=== PATIENT | female | born 1950 | race Caucasian/White ===

== ENCOUNTER → 2016-08-21 | Outpatient (CLI) | payer MEDICARE, OTHER ==
--- NOTE | 2016-08-22 12:15 | MM ---
Reason for exam: screening (asymptomatic). Last mammogram was performed 1 year ago. History: Patient is postmenopausal and history of other cancer. Family history of breast cancer in mother at age 50. Physical Findings: A clinical breast exam by your physician is recommended on an annual basis and results should be correlated with mammographic findings. MG 3D Screening Mammo W/Cad Bilateral CC and MLO view(s) were taken. Prior study comparison: August 18, 2015, bilateral MG screening mammo w CAD. July 27, 2014, left breast MG work up mamm w CAD LT. There are scattered fibroglandular densities. Finding: There are typically benign calcifications in both breasts. There is a chronic nodularity in the left breast. No significant changes in finding since August 18, 2015 and July 27, 2014. ASSESSMENT: Benign, BI-RAD 2 RECOMMENDATION: Routine screening mammogram of both breasts in 1 year.
== END | disposition home or self-care (01) ==
LOC: RADMAMWWP 11:07
PROVIDERS: ATTEND Family Medicine
DX: Z12.31 Encounter for screening mammogram for malignant neoplasm of breast (principal)
CPT/HCPCS: 77063; G0202

== ENCOUNTER 2016-09-18 10:50 | Day surgery (SDC) | payer MEDICARE, OTHER ==
[2016-09-12 11:41] VITALS: BMI 29.8
[~2016-09-18 10:50] MED LIST: LACTATED RINGERS 1,000 ML IV SCH
[2016-09-18] MEDS: PHENYLEPHRINE 10% OPHTH DROPS 5 ML BTL OP ONE ×3 (11:02→11:15)
[2016-09-18] MEDS: FLURBIPROFEN 0.03% OPHTH DROPS 2.5 ML BTL OP ONE ×3 (11:04→11:17)
[2016-09-18] MEDS: CYCLOPENTOLATE 1% OPHTH SOLN 2 ML BTL OP ONE ×3 (11:06→11:19)
[2016-09-18 11:14] VITALS: RESP 16; TEMP 97.4
[2016-09-18] MEDS ORDERED: BALANCED SALT IRRIG SOLN COMB2 15 ML IRRIG.SOLN INTRAOCULA ONE (11:42)
[2016-09-18] MEDS ORDERED: MIDAZOLAM 2 MG/2 ML VIAL ONE (11:42)
[2016-09-18] MEDS ORDERED: HYALURONATE SODIUM INTRAOCULAR 1 EACH SYRINGE (10MG/ML) INTRAOCULA ONE (11:42)
[2016-09-18] MEDS ORDERED: PROPOFOL 10 MG/ML 20 ML VIAL IV ONE (11:42)
[2016-09-18] MEDS ORDERED: LIDOCAINE 1% INJ 10MG/ML (20 ML MDV) ONE (11:42)
[2016-09-18] MEDS ORDERED: EPINEPHrine (PF) 0.5 ML in BALANCED SALT IRRIG SOLN COMB2 500 ML IRRIGATION ONE (11:44)
[2016-09-18] MEDS ORDERED: TETRACAINE 0.5% OPHTH (PF) DROPS 4 ML BTL LEFT EYE ONE (11:54)
--- NOTE | 2016-09-18 12:06 | P.OP ---
Date of Procedure: 09/18/16 Procedure(s) Performed: PREOPERATIVE DIAGNOSIS: Cataract, left eye. POSTOPERATIVE DIAGNOSIS: Cataract, left eye. OPERATION: Phacoemulsification cataract, left eye. DESCRIPTION OF PROCEDURE: The patient was taken to the preoperative holding area. Intravenous Propofol was given so as to bring about adequate sedation. The following mixture was given for local anesthesia: 5 mL of 2% lidocaine, 5 mL of 0.75% Marcaine, and 1 mL of Wydase. Approximately 4 mL was injected in the retrobulbar space of the surgical eye. Additional 1 mL was then directed to the temporal area of the surgical eye. This was performed to allow adequate neurological block of the facial muscles. The patient was revived and then taken into the operative room. The patient was prepped and draped in the usual sterile manner for the operative eye. A lid speculum was put into position. The conjunctiva was resected back from the limbus in the 12 o'clock position. Bleeding was controlled with electrocautery. A #69 blade was then used and a half-thickness scleral incision approximately 1-mm posterior to the limbus was made on bare sclera. This was shelved in the clear cornea using a crescent knife. Next a 15-degree blade was used to make a stab incision at the 3 o' clock position at the corneolimbal interface. Keratome blade was then used and the superior wound was extended into the anterior chamber. Viscoelastic was injected into the anterior chamber and to maintain its form. Next, a cystotome was used and a continuous anterior capsulotomy was made without difficulty. Hydrodissection using a blunt cannula and BSS was performed. Phaco probe was then employed and a groove extending from 12 to 6 o'clock in the lens was created. A Nadir wand was used through the stab incision so as to perform a divide and conquer technique. Next an irrigation aspiration probe was utilized and any residual cortex was removed from the eye. Again, viscoelastic was injected into the anterior chamber. An MIKE Symfony posterior chamber lens implant was placed in the cartridge and injected into the anterior chamber without difficulty. The Sinskey hook was utilized to spin the lens into position and this was again performed without any difficulty. The irrigation and aspiration probe was again employed and any residual viscoelastic was removed from the eye. Then BSS was injected into the limbal stab incision and the anterior chamber re-inflated. The conjunctiva was reapproximated using electrocautery. One drop of 0.25% Timoptic was placed over the corneal along with TobraDex ophthalmic ointment. Two sterile patches and a Calabrese eye shield were taped into position. The patient was transported to the recovery room in stable condition. Pathology: none sent Condition: stable Disposition: same day
[2016-09-18 12:26] VITALS: BP 133/70; PULSE 62
[2016-09-18] MEDS ORDERED: GENTAMICIN/PREDNISOL AC OPHTH OINT 3.5GM OPHTHALMIC ONE (23:00)
[2016-09-18] MEDS ORDERED: BUPIVACAINE (PF) 0.75% 5 ML, LIDOCAINE 4% (PF) 5 ML, HYALURONIDASE, HUMAN RECOMB 150 UNIT MISCELLANE ONE ×3 (23:00)
[2016-09-18] MEDS ORDERED: TIMOLOL 0.5% OPHTH SOLN (PF) 0.2 ML DROPERETTE OP ONE (23:00)
== END 2016-09-18 13:01 | disposition home or self-care (01) ==
LOC: OR 10:50
PROVIDERS: ATTEND Ophthalmology
DX: H26.9 Unspecified cataract (principal); I10 Essential (primary) hypertension; E07.9 Disorder of thyroid, unspecified; E78.9 Disorder of lipoprotein metabolism, unspecified; R42 Dizziness and giddiness; Z79.899 Other long term (current) drug therapy
CPT/HCPCS: 66984; V2632; V2788; J2001 ×2; J2250; J3470; J0171; J2704; 99152; 99153

== ENCOUNTER 2016-11-06 10:42 | Day surgery (SDC) | payer MEDICARE, OTHER ==
[2016-11-01 16:02] VITALS: BMI 29.8
[~2016-11-06 10:42] MED LIST changes: +LIDOCAINE 1% 20 ML VIAL (10MG/ML) FOR IV START INTRADERMA PRN
[2016-11-06] MEDS: PHENYLEPHRINE 10% OPHTH DROPS 5 ML BTL OP ONE ×3 (11:37→12:03)
[2016-11-06] MEDS: CYCLOPENTOLATE 1% OPHTH SOLN 2 ML BTL OP ONE ×3 (11:40→12:06)
[2016-11-06] MEDS: FLURBIPROFEN 0.03% OPHTH DROPS 2.5 ML BTL OP ONE ×3 (11:45→12:10)
[2016-11-06 11:54] VITALS: RESP 16; TEMP 97.4
[2016-11-06] MEDS ORDERED: PROPOFOL 10 MG/ML 20 ML VIAL IV ONE (12:45)
[2016-11-06] MEDS ORDERED: LIDOCAINE 1% INJ 10MG/ML (20 ML MDV) ONE (12:45)
[2016-11-06] MEDS ORDERED: EPINEPHrine (PF) 0.5 ML in BALANCED SALT IRRIG SOLN COMB2 500 ML IRRIGATION ONE (12:51)
[2016-11-06] MEDS ORDERED: BALANCED SALT IRRIG SOLN COMB2 15 ML IRRIG.SOLN IRRIGATION ONE (12:53)
[2016-11-06] MEDS ORDERED: HYALURONATE SODIUM INTRAOCULAR 1 EACH SYRINGE (10MG/ML) INTRAOCULA ONE (12:54)
--- NOTE | 2016-11-06 13:18 | P.OP ---
Date of Procedure: 11/06/16 Procedure(s) Performed: PREOPERATIVE DIAGNOSIS: Cataract, right eye. POSTOPERATIVE DIAGNOSIS: Cataract, right eye. OPERATION: Phacoemulsification cataract, right eye. DESCRIPTION OF PROCEDURE: The patient was taken to the preoperative holding area. Intravenous Propofol was given so as to bring about adequate sedation. The following mixture was given for local anesthesia: 5 mL of 2% lidocaine, 5 mL of 0.75% Marcaine, and 1 mL of Wydase. Approximately 4 mL was injected in the retrobulbar space of the surgical eye. Additional 1 mL was then directed to the temporal area of the surgical eye. This was performed to allow adequate neurological block of the facial muscles. The patient was revived and then taken into the operative room. The patient was prepped and draped in the usual sterile manner for the operative eye. A lid speculum was put into position. A #69 blade was then used and a half-thickness corneal incision was made at the 95 degree meridian. This was shelved in the clear cornea using a crescent knife. Next a 15-degree blade was used to make a stab incision at the 3 o' clock position at the corneolimbal interface. Keratome blade was then used and the superior wound was extended into the anterior chamber. Viscoelastic was injected into the anterior chamber and to maintain its form. Next, a cystotome was used and a continuous anterior capsulotomy was made without difficulty. Hydrodissection using a blunt cannula and BSS was performed. Phaco probe was then employed and a groove extending from 12 to 6 o'clock in the lens was created. A Nadir wand was used through the stab incision so as to perform a divide and conquer technique. Next an irrigation aspiration probe was utilized and any residual cortex was removed from the eye. Again, viscoelastic was injected into the anterior chamber. An MIKE Symfony posterior chamber lens implant was placed in the cartridge and injected into the anterior chamber without difficulty. The Sinskey hook was utilized to spin the lens into position and this was again performed without any difficulty. The irrigation and aspiration probe was again employed and any residual viscoelastic was removed from the eye. Then BSS was injected into the limbal stab incision and the anterior chamber re-inflated. The conjunctiva was reapproximated using electrocautery. One drop of 0.25% Timoptic was placed over the corneal along with TobraDex ophthalmic ointment. Two sterile patches and a Calabrese eye shield were taped into position. The patient was transported to the recovery room in stable condition. Pathology: none sent Condition: stable Disposition: same day
[2016-11-06 13:34] VITALS: BP 143/67; PULSE 68
[2016-11-06] MEDS ORDERED: TIMOLOL 0.5% OPHTH SOLN (PF) 0.2 ML DROPERETTE OP ONE (23:00)
[2016-11-06] MEDS ORDERED: BUPIVACAINE (PF) 0.75% 5 ML, LIDOCAINE 4% (PF) 5 ML, HYALURONIDASE, HUMAN RECOMB 150 UNIT MISCELLANE ONE ×3 (23:00)
[2016-11-06] MEDS ORDERED: GENTAMICIN/PREDNISOL AC OPHTH OINT 3.5GM OPHTHALMIC ONE (23:00)
== END 2016-11-06 14:05 | disposition home or self-care (01) ==
LOC: OR 10:42
PROVIDERS: ATTEND Ophthalmology
DX: H26.9 Unspecified cataract (principal); H04.129 Dry eye syndrome of unspecified lacrimal gland; I10 Essential (primary) hypertension; E78.5 Hyperlipidemia, unspecified; E07.9 Disorder of thyroid, unspecified; Z79.899 Other long term (current) drug therapy
CPT/HCPCS: 66984; V2632; V2788; J2001 ×2; J3470; J0171; J2704

== ENCOUNTER 2016-12-11 07:42 | Day surgery (SDC) | payer MEDICARE, OTHER ==
[2016-12-06 09:56] VITALS: BMI 29.8
[2016-12-11 08:48] VITALS: RESP 16; TEMP 97.5
[2016-12-11] MEDS ORDERED: LIDOCAINE 1% 20 ML VIAL (10MG/ML) FOR IV START INTRADERMA ONE (08:55)
[2016-12-11] MEDS ORDERED: PROPOFOL 10 MG/ML 20 ML VIAL IV ONE (09:48)
[2016-12-11] MEDS ORDERED: LIDOCAINE 1% INJ 10MG/ML (20 ML MDV) ONE (09:48)
--- NOTE | 2016-12-11 10:32 | P.PCN ---
Date of Procedure: 12/11/16 Procedure(s) Performed: Procedure: Total colonoscopy. Preoperative diagnosis: Screening for neoplasia, patient has strong family history of colon cancer. Postoperative diagnosis: Exam within normal limits. Preparation: HalfLytely prep. Sedation: Was provided by anesthesia. Brief clinical history: The patient is a 66-year-old female who is scheduled for this evaluation because of family history of colon cancer in her mother and paternal grandfather. She has no abdominal complaints, bleeding or anemia. Procedure: With the patient on her left lateral decubitus position and after informed consent and adequate sedation, the perianal area was inspected and it did not show any fissures or fistulas. There were no masses felt on digital rectal examination. The Olympus CFQ 160L video colonoscope was then inserted in the rectum in the usual fashion and advanced to the cecum. The preparation was good. The mucosa appeared healthy. No polyps or tumors were seen or any obvious diverticular disease or other pathology. I retroflexed endoscope in the rectum before the endoscope was withdrawn. The patient tolerated the procedure well. Plan: The patient was reassured. With her family history, I am recommending repeat exam in 5 years. She will follow-up with you as planned.
[2016-12-11 10:40] VITALS: BP 112/66; PULSE 56
== END 2016-12-11 10:59 | disposition home or self-care (01) ==
LOC: ORWHC2ENDO 07:42
DX: Z12.11 Encounter for screening for malignant neoplasm of colon (principal); Z80.0 Family history of malignant neoplasm of digestive organs; I10 Essential (primary) hypertension; E78.5 Hyperlipidemia, unspecified; E07.9 Disorder of thyroid, unspecified; Z79.2 Long term (current) use of antibiotics; Z79.1 Long term (current) use of non-steroidal anti-inflammatories (NSAID); Z79.899 Other long term (current) drug therapy
CPT/HCPCS: J2001; J2704; G0105

== ENCOUNTER → 2017-01-19 | Outpatient (CLI) | payer MEDICARE, OTHER ==
--- NOTE | 2017-01-19 11:01 | MR ---
EXAMINATION TYPE: MR lumbar spine wo con DATE OF EXAM: 01/19/2017 10:44 AM COMPARISON: April 02, 2014 HISTORY: low back pain for many years with prev surgery...ordered Without contrast Multiplanar, MultiSpin echo imaging of the lumbar spine was performed. L1-L2: Moderate to severe disc desiccation. Grade 1 anterolisthesis L1 and L2 of 4.2 mm. Posterior di sc bulge with constriction of the thecal sac borderline to mild central stenosis. Bilateral foraminal encroachment seen. L2-L3: Moderate to severe disc desiccation. Posterior disc bulge with effacement of the ventral theca l sac and bilateral lateral recess stenosis. Bilateral foraminal encroachment. No definite central st enosis. L3-L4: Changes of fusion. Pedicular screws are in place. Alignment is near-anatomic. No evidence for recurrent or residual disc herniation. Right hemilaminectomy changes. Mild narrowing bilateral forami na. L4-L5: Changes of fusion. Pedicular screws are in place. Alignment is near-anatomic. No evidence for recurrent or residual disc herniation. Right hemilaminectomy changes. Mild narrowing bilateral forami na. L5-S1: Changes of fusion. Pedicular screws are in place. Alignment is near-anatomic. Moderate disc de siccation with posterior disc bulge. No herniation or central stenosis. Right hemilaminectomy changes . Mild narrowing bilateral foramina. Lumbar segments are intact. No paraspinal masses are identified. Conus medullaris has a normal appe arance. IMPRESSION: 1. Stable postoperative changes. 2. Grade 1 anterolisthesis with posterior disc bulging at L1-2 and borderline central stenosis. Bilat eral foraminal encroachment. 3. Degenerative disc disease with bilateral lateral recess stenosis at L2-3. See above
== END | disposition home or self-care (01) ==
LOC: RADMRIMAIN 10:08
PROVIDERS: ATTEND Psychiatry & Neurology Pain Medicine
DX: M48.06 Spinal stenosis, lumbar region (principal); M51.26 Other intervertebral disc displacement, lumbar region; M43.16 Spondylolisthesis, lumbar region; M51.36 Other intervertebral disc degeneration, lumbar region; Z98.890 Other specified postprocedural states
CPT/HCPCS: 72148

== ENCOUNTER → 2017-09-18 | Outpatient (CLI) | payer MEDICARE, OTHER ==
--- NOTE | 2017-09-19 10:30 | MM ---
Reason for exam: screening (asymptomatic). Last mammogram was performed 1 year and 1 month ago. History: Patient is postmenopausal and history of other cancer. Family history of breast cancer in mother at age 50. Physical Findings: A clinical breast exam by your physician is recommended on an annual basis and results should be correlated with mammographic findings. MG 3D Screening Mammo W/Cad Bilateral CC and MLO view(s) were taken. Prior study comparison: August 21, 2016, bilateral MG 3d screening mammo w/cad. August 18, 2015, bilateral MG screening mammo w CAD. There are scattered fibroglandular densities. No suspicious abnormality. No significant changes when compared with prior studies. ASSESSMENT: Negative, BI-RAD 1 RECOMMENDATION: Routine screening mammogram of both breasts in 1 year.
== END | disposition home or self-care (01) ==
LOC: RADMAMWWP 15:33
PROVIDERS: ATTEND Family Medicine
DX: Z12.31 Encounter for screening mammogram for malignant neoplasm of breast (principal)
CPT/HCPCS: 77063; 77067

== ENCOUNTER 2017-12-10 14:12 | Observation (INO) | payer MEDICARE, OTHER ==
--- NOTE | 2017-12-10 14:26 | ED ---
General Adult HPI - General Chief complaint: Chest Pain Stated complaint: SOB Time Seen by Provider: 12/10/17 14:20 Source: patient, RN notes reviewed, old records reviewed Mode of arrival: wheelchair Limitations: no limitations - History of Present Illness Initial comments: This is a 67-year-old female the ER for evaluation of chest pain, chest pain shortness of breath. Patient is calm. Medical history CVA TIA high blood pressure high cholesterol and CVA. No recent travel history no prior history of blood clots. No fevers cough or congestion. No trauma. - Related Data Home Medications Medication Instructions Recorded Confirmed Levothyroxine Sodium [Synthroid] 50 mcg PO DAILY 03/06/14 12/10/17 Lisinopril-Hctz 20-12.5 mg 1 tab PO DAILY 03/06/14 12/10/17 [Zestoretic 20-12.5] Cephalexin [Keflex] 500 mg PO BID 09/12/16 12/10/17 Allergies Allergy/AdvReac Type Severity Reaction Status Date / Time No Known Allergies Allergy Verified 12/10/17 14:42 Review of Systems ROS Statement: Those systems with pertinent positive or pertinent negative responses have been documented in the HPI. ROS Other: All systems not noted in ROS Statement are negative. Past Medical History Past Medical History: Cancer, CVA/TIA, Hyperlipidemia, Hypertension, Osteoarthritis (OA), Seizure Disorder, Thyroid Disorder Additional Past Medical History / Comment(s): seizure 2 yrs ago X1 AFTER FALL, STATES CLOSED HEAD INJURY,RANJIT'S, STATES WAS TOLD HAD TIA FROM TESTING, BUT PATIENT UNAWARE WHEN, hx skin cancer History of Any Multi-Drug Resistant Organisms: None Reported Past Surgical History: Back Surgery, Cholecystectomy, Joint Replacement, Orthopedic Surgery, Tonsillectomy Additional Past Surgical History / Comment(s): back surgery 2014, abdominoplasty , josseline carpal tunnel, rt shoulder and left knee surgeries, JOSSELINE CATARACT rt knee Past Anesthesia/Blood Transfusion Reactions: No Reported Reaction Past Psychological History: No Psychological Hx Reported Smoking Status: Never smoker Past Alcohol Use History: None Reported Past Drug Use History: None Reported - Past Family History Mother Family Medical History: CVA/TIA General Exam Limitations: no limitations General appearance: alert, in no apparent distress Head exam: Present: atraumatic, normocephalic, normal inspection Eye exam: Present: normal appearance, PERRL, EOMI. Absent: scleral icterus, conjunctival injection, periorbital swelling ENT exam: Present: normal exam, mucous membranes moist Neck exam: Present: normal inspection. Absent: tenderness, meningismus, lymphadenopathy Respiratory exam: Present: normal lung sounds bilaterally. Absent: respiratory distress, wheezes, rales, rhonchi, stridor Cardiovascular Exam: Present: regular rate, normal rhythm, normal heart sounds. Absent: systolic murmur, diastolic murmur, rubs, gallop, clicks GI/Abdominal exam: Present: soft, normal bowel sounds. Absent: distended, tenderness, guarding, rebound, rigid Extremities exam: Present: normal inspection, full ROM, normal capillary refill. Absent: tenderness, pedal edema, joint swelling, calf tenderness Back exam: Present: normal inspection Neurological exam: Present: alert, oriented X3, CN II-XII intact Psychiatric exam: Present: normal affect, normal mood Skin exam: Present: warm, dry, intact, normal color. Absent: rash Course Vital Signs 12/10/17 14:16 Temperature 98.3 F Pulse Rate 66 Respiratory 20 Rate Blood Pressure 132/60 O2 Sat by Pulse 99 Oximetry - Reevaluation(s) Reevaluation #1: 12/10/17 16:34 Patient has pain control currently EKG Findings - EKG Comments: EKG Findings:: EKG shows sinus rhythm rate of 72, OH 156, QRS 70, QTc 422 Medical Decision Making - Medical Decision Making 67 female the ER for evaluation of chest pain continued chest pain currently. Patient has significant shortness of breath recent EKG changes. Patient will be admitted for cardiac observation - Lab Data Result diagrams: 12/10/17 14:40 12/10/17 14:40 Lab Results 12/10/17 12/10/17 12/10/17 Range/Units 14:40 14:40 14:40 WBC 8.5 (3.8-10.6) k/uL RBC 4.45 (3.80-5.40) m/uL Hgb 11.8 (11.4-16.0) gm/dL Hct 35.5 (34.0-46.0) % MCV 79.9 L (80.0-100.0) fL MCH 26.4 (25.0-35.0) pg MCHC 33.1 (31.0-37.0) g/dL RDW 13.7 (11.5-15.5) % Plt Count 280 (150-450) k/uL Neutrophils % 71 % Lymphocytes % 19 % Monocytes % 6 % Eosinophils % 1 % Basophils % 0 % Neutrophils # 6.1 (1.3-7.7) k/uL Lymphocytes # 1.7 (1.0-4.8) k/uL Monocytes # 0.5 (0-1.0) k/uL Eosinophils # 0.1 (0-0.7) k/uL Basophils # 0.0 (0-0.2) k/uL PT (9.0-12.0) sec INR (<1.2) APTT (22.0-30.0) sec D-Dimer (<0.60) mg/L FEU Sodium 143 (137-145) mmol/L Potassium 4.9 (3.5-5.1) mmol/L Chloride 103 (98-107) mmol/L Carbon Dioxide 24 (22-30) mmol/L Anion Gap 16 mmol/L BUN 25 H (7-17) mg/dL Creatinine 0.70 (0.52-1.04) mg/dL Est GFR (CKD-EPI)AfAm >90 (>60 ml/min/1.73 sqM) Est GFR (CKD-EPI)NonAf 90 (>60 ml/min/1.73 sqM) Glucose 99 (74-99) mg/dL Calcium 10.3 H (8.4-10.2) mg/dL Magnesium 1.8 (1.6-2.3) mg/dL Total Bilirubin 0.6 (0.2-1.3) mg/dL AST 38 H (14-36) U/L ALT 27 (9-52) U/L Alkaline Phosphatase 87 (38-126) U/L Total Creatine Kinase 84 (30-135) U/L CK-MB (CK-2) 1.0 (0.0-2.4) ng/mL CK-MB (CK-2) Rel Index 1.2 Troponin I <0.012 (0.000-0.034) ng/mL Total Protein 7.8 (6.3-8.2) g/dL Albumin 4.8 (3.5-5.0) g/dL Lipase 130 (23-300) U/L 04/24/18 Range/Units 14:40 WBC (3.8-10.6) k/uL RBC (3.80-5.40) m/uL Hgb (11.4-16.0) gm/dL Hct (34.0-46.0) % MCV (80.0-100.0) fL MCH (25.0-35.0) pg MCHC (31.0-37.0) g/dL RDW (11.5-15.5) % Plt Count (150-450) k/uL Neutrophils % % Lymphocytes % % Monocytes % % Eosinophils % % Basophils % % Neutrophils # (1.3-7.7) k/uL Lymphocytes # (1.0-4.8) k/uL Monocytes # (0-1.0) k/uL Eosinophils # (0-0.7) k/uL Basophils # (0-0.2) k/uL PT 10.1 (9.0-12.0) sec INR 1.0 (<1.2) APTT 24.5 (22.0-30.0) sec D-Dimer 5.19 H (<0.60) mg/L FEU Sodium (137-145) mmol/L Potassium (3.5-5.1) mmol/L Chloride (98-107) mmol/L Carbon Dioxide (22-30) mmol/L Anion Gap mmol/L BUN (7-17) mg/dL Creatinine (0.52-1.04) mg/dL Est GFR (CKD-EPI)AfAm (>60 ml/min/1.73 sqM) Est GFR (CKD-EPI)NonAf (>60 ml/min/1.73 sqM) Glucose (74-99) mg/dL Calcium (8.4-10.2) mg/dL Magnesium (1.6-2.3) mg/dL Total Bilirubin (0.2-1.3) mg/dL AST (14-36) U/L ALT (9-52) U/L Alkaline Phosphatase (38-126) U/L Total Creatine Kinase (30-135) U/L CK-MB (CK-2) (0.0-2.4) ng/mL CK-MB (CK-2) Rel Index Troponin I (0.000-0.034) ng/mL Total Protein (6.3-8.2) g/dL Albumin (3.5-5.0) g/dL Lipase (23-300) U/L - Radiology Data Radiology results: report reviewed (Chest x-rays negative for acute disease, CT is pending), image reviewed Critical Care Time Critical Care Time: Yes Total Critical Care Time: 31 Disposition Clinical Impression: Unstable angina pectoris, Chest pain Disposition: ADMITTED IP TO THIS [facility] Condition: Fair Is patient prescribed a controlled substance at d/c from ED?: No Referrals: Allan Coffey DO [Primary Care Provider] - 1-2 days
--- NOTE | 2017-12-10 15:05 | XR ---
EXAMINATION TYPE: XR chest 2V DATE OF EXAM: 12/10/2017 COMPARISON: 10/26/2015 HISTORY: Shortness of breath TECHNIQUE: Frontal and lateral views of the chest are obtained. FINDINGS: Scattered senescent parenchymal changes noted. No evidence for infiltrate. No evidence for atelectasis. Heart size is stable. Mediastinal structures are stable and grossly unremarkable. No evidence for hilar prominence. Degenerative changes dorsal spine. IMPRESSION: 1. No evidence for acute pulmonary disease.
[2017-12-10 15:08] LABS: Basophils % (A) 0 %; Eosinophils # (A) 0.1 k/uL (0-0.7); Eosinophils % (A) 1 %; HCT 35.5 % (34.0-46.0); HGB 11.8 gm/dL (11.4-16.0); Lymphocytes # (A) 1.7 k/uL (1.0-4.8); Lymphocytes % (A) 19 %; MCH 26.4 pg (25.0-35.0); MCHC 33.1 g/dL (31.0-37.0); MCV 79.9 fL (80.0-100.0); Mean Platelet Volume 7.4; Monocytes # (A) 0.5 k/uL (0-1.0); Monocytes % (A) 6 %; Neutrophils # (A) 6.1 k/uL (1.3-7.7); Neutrophils % (A) 71 %; Platelet Count 280 k/uL (150-450); RBC 4.45 m/uL (3.80-5.40); RDW 13.7 % (11.5-15.5); WBC 8.5 k/uL (3.8-10.6)
[2017-12-10 15:23] LABS: Anion Gap 16 mmol/L; Calcium 10.3 mg/dL (8.4-10.2); Carbon Dioxide 24 mmol/L (22-30); Chloride 103 mmol/L (98-107); Glucose 99 mg/dL (74-99); Lipase 130 U/L (23-300); Sodium 143 mmol/L (137-145); Total Bilirubin 0.6 mg/dL (0.2-1.3)
[2017-12-10 15:28] LABS: ALT 27 U/L (9-52); AST 38 U/L (14-36); Albumin 4.8 g/dL (3.5-5.0); Blood Urea Nitrogen 25 mg/dL (7-17); Magnesium 1.8 mg/dL (1.6-2.3); Potassium 4.9 mmol/L (3.5-5.1); Total Protein 7.8 g/dL (6.3-8.2)
[2017-12-10 15:29] LABS: Alkaline Phosphatase 87 U/L (38-126); Creatine Kinase 84 U/L (30-135)
[2017-12-10 15:43] LABS: Troponin I <0.012 ng/mL (0.000-0.034)
[2017-12-10 16:22] LABS: Partial Thromboplastin Time 24.5 sec (22.0-30.0); Prothrombin Time 10.1 sec (9.0-12.0)
[2017-12-10] MEDS ORDERED: ASPIRIN 81 MG PO STA (16:22)
[2017-12-10] MEDS ORDERED: NITROGLYCERIN SL TABS 0.4 MG TAB SUBLINGUAL PRN (16:22)
[2017-12-10 16:23] LABS: D-Dimer 5.19 mg/L FEU (<0.60)
[2017-12-10] MEDS ORDERED: RX INFO: IV CONTRAST WAS GIVEN 1 EACH MISC MISCELLANE PRN (16:24)
--- NOTE | 2017-12-10 17:25 | CT ---
EXAMINATION TYPE: CT angio chest DATE OF EXAM: 12/10/2017 5:13 PM COMPARISON: NONE HISTORY: Shortness of breath and chest heaviness x [address] DLP: 253.4 mGycm Automated exposure control for dose reduction was used. CONTRAST: CTA scan of the thorax is performed with IV Contrast, patient injected with 100 mL of Isovue 370, pul monary embolism protocol. There are 3-D post processed images.. FINDINGS: The lungs are clear of infiltrate. There is no pleural effusion. There is no mediastinal adenopathy. Thoracic aorta shows no sign of aneurysm or dissection. There is normal contrast opacification of the pulmonary arteries. I see no filling defects. There are no hilar masses. There is a small pericardial effusion. There is mild spurring in the thoracic spine . There is no focal bony destructive process. There is no compression fracture. IMPRESSION: NO EVIDENCE OF PULMONARY EMBOLISM. LUNGS ARE CLEAR. SMALL PERICARDIAL EFFUSION.
[2017-12-10] MEDS ORDERED: HYDROcodone/APAP 10-325MG 1 EACH TAB PO ONE (18:07)
[2017-12-10] MEDS: HYDROcodone/APAP 10-325MG 1 EACH TAB PO SCH (18:10)
[2017-12-10] MEDS ORDERED: MAGNESIUM HYDROXIDE 2,400 MG/10 ML CUP PO PRN (19:52)
[2017-12-10] MEDS ORDERED: LACTULOSE 20 GM/30 ML CUP PO PRN (19:52)
[2017-12-10] MEDS ORDERED: CALCIUM CARBONATE 500 MG CHEWABLE PO PRN (19:52)
[2017-12-10] MEDS ORDERED: NALOXONE 0.4 MG/ML 1 ML VIAL IV PRN (19:52)
[2017-12-10] MEDS ORDERED: ACETAMINOPHEN TAB 325 MG TAB PO PRN (19:52)
[2017-12-10] MEDS ORDERED: LORazepam 0.5 MG TAB PO PRN (19:52)
[2017-12-10] MEDS ORDERED: ONDANSETRON 4 MG/2 ML VIAL IVP PRN (19:52)
[2017-12-10] MEDS ORDERED: MELATONIN 3 MG TABLET PO PRN (19:52)
[2017-12-10 21:22] LABS: Creatine Kinase 82 U/L (30-135)
[2017-12-10 21:34] LABS: Creatine Kinase MB 0.9 ng/mL (0.0-2.4); Troponin I <0.012 ng/mL (0.000-0.034)
[2017-12-10] MEDS: NITROGLYCERIN OINT 1 INCH/GM PACKET TOPICAL SCH (22:00)
--- NOTE | 2017-12-10 22:02 | HP ---
HISTORY AND PHYSICAL DATE OF OF ADMISSION AND DATE OF SERVICE: 12/10/2017 PRESENTING COMPLAINT: Chest pressure. HISTORY OF PRESENTING COMPLAINT: A very pleasant 67-year-old patient of Dr. Coffey. Chronic stable medical conditions include hypertension, hyperlipidemia, osteoarthritis, Bren's. The patient is limited in exercise tolerance because the right knee has been infected twice and is due again for replacement. For about 1 week, patient is finding it difficult to catch her breath, also noticed a chest pressure going across the chest, even at rest. The patient is noticed to become short of breath. Breaks out in a sweat at night and feels tired and run down. Hence, she decided to come in. The patient had a stress test several years ago that was negative. The patient admitted with diagnosis of unstable angina. Initial troponin was negative. REVIEW OF SYSTEMS: CONSTITUTIONAL: Tired. HEENT: None. RESPIRATORY: None. CARDIOVASCULAR: As above. GASTROINTESTINAL: None. GENITOURINARY: None. MUSCULOSKELETAL: Arthritic pain in joints, especially the right knee. DERMATOLOGICAL: None. HEMATOLOGIC: Lymphatics none. PSYCHIATRY: None. NEUROLOGICAL: None. PAST MEDICAL HISTORY: Hyperlipidemia, hypertension, osteoarthritis, seizure disorder, falling, closed head injury on ice, Bren's, skin cancer. The patient's cholesterol medication discontinued 1 week ago. PAST SURGICAL HISTORY: Back surgery x2, cholecystectomy, abdominoplasty, bilateral carpal tunnel, right shoulder rotator cuff, left knee arthroscopy, right knee replacement. SOCIAL HISTORY: The patient smoked for 10 years, stopped about 40 years ago. Alcohol occasionally. . FAMILY HISTORY: Breast and colon cancer and stroke. HOME MEDICATIONS: 1. Zestoretic 20/12.5 one tablet p.o. daily. 2. Synthroid 50 mcg p.o. daily. 3. Keflex 500 mg b.i.d. ALLERGIES: None. EXAMINATION: Temperature 98.3 pulse 53, respirations 20, blood pressure 132/60, pulse ox 99% on room air. GENERAL APPEARANCE: Well built, BMI 31.8. Sitting up, awake, comfortable. EYES: Pupils equal. Conjunctivae normal. HEENT: External appearance of nose and ears normal. Oral cavity normal. NECK: JVD not raised. Mass not palpable. RESPIRATORY: Effort normal. Lungs are clear. CARDIOVASCULAR: First and second sounds normal. No edema. ABDOMEN: Soft, nontender. Liver and spleen not palpable. LYMPHATIC: No lymph node palpable in neck or axillae. PSYCHIATRY: Alert and oriented x3. Mood and affect normal. NEUROLOGICAL: Pupils equal. Cranial nerves grossly intact. Power and sensation grossly intact. Limited range of motion of the right knee. INVESTIGATIONS: White count 8.5, hemoglobin 11.8. Potassium 4.9. EKG: Normal sinus rhythm. ASSESSMENT: 1. Cardiac-sounding presentation/unstable angina. Patient has been having chest pressure, shortness of breath, episodes of perspiration present at rest. The patient would probably therapeutically benefit from a cardiac catheterization. 2. Essential hypertension. 3. Hyperlipidemia. 4. Primary osteoarthritis multiple joints. 5. History of seizures from closed head injury. 6. Hypothyroidism. 7. Obesity; BMI 31.8. PLAN: Patient is on aspirin, Lipitor, will add a nitro paste. Will keep the patient n.p.o. after midnight for possible cardiac catheterization. Will let Cardiology make the final determination. MMODL / IJN: [id number] /
[2017-12-11] MEDS: NITROGLYCERIN OINT 1 INCH/GM PACKET TOPICAL SCH ×3 (00:19→18:30)
[2017-12-11] MEDS: HYDROcodone/APAP 10-325MG 1 EACH TAB PO SCH ×2 (02:08→18:29)
[2017-12-11 02:33] LABS: Cholesterol 164 mg/dL (<200); HDL Cholesterol 53 mg/dL (40-60); LDL Cholesterol,Calculated 82 mg/dL (0-99); Triglycerides 147 mg/dL (<150)
[2017-12-11 02:54] LABS: Creatine Kinase 63 U/L (30-135)
[2017-12-11 03:08] LABS: Creatine Kinase MB 0.6 ng/mL (0.0-2.4); Troponin I <0.012 ng/mL (0.000-0.034)
[2017-12-11] MEDS ORDERED: LEVOTHYROXINE 50 MCG TAB PO SCH (06:30)
[2017-12-11] MEDS ORDERED: ASPIRIN 325 MG TAB PO SCH (09:00)
[2017-12-11] MEDS ORDERED: LISINOPRIL-HCTZ 20-12.5 MG 1 EACH TAB PO SCH (09:00)
[2017-12-11] MEDS ORDERED: ATORVASTATIN 80 MG TAB PO SCH (09:00)
[2017-12-11] MEDS ORDERED: DOBUTamine DRIP for NUC MED 250 MG in DEXTROSE/WATER 1 250ML.BAG IV ONE (09:53)
--- NOTE | 2017-12-11 10:02 | P.CRDCN ---
History of Present Illness Consult date: 12/11/17 History of present illness: Mrs. Bustos is a pleasant 67-year-old female past medical history significant for hypertension, dylipidemia, seizure disorder and hypothyroid. She denies having a history of coronary artery disease and has never seen a correctional agency director for any reason. We have been asked to see her in consultation for chest pain. She states over the last week she has been experiencing intermittent symptoms of chest heaviness with shortness of breath and diaphoresis at night. The heaviness remains localized to the anterior chest more on the left precordial region. No radiation to the arm, back, neck or jaw. No specific aggravating or alleviating factors. The discomfort is intermittent and mostly at rest is when she notices it. She is currently awaiting a knee replacement and therefore her activity level has been significantly diminished lately. At the time of my exam she is chest pain free and denies shortness of breath. EKG is normal sinus mechanism with no acute ST or T-wave abnormalities noted. Chest xray negative for an acute cardiopulmonary process. CTA chest negative for PE with evidence of small pericardial effusion noted. Laboratory data reviewed, hemoglobin 11.8, platelets 280, d-dimer 5.19, potassium 4.9, magnesium 1.8, creatinine 0.7, cardiac enzymes negative 3, LDL 82. Current cardiac medications include lisinopril/HCTZ 20/12.5 mg daily. Most recent stress test performed 2013 was negative for stress-induced ischemia. Review of Systems At the time of my exam: CONSTITUTIONAL: Denies fever. Denies chills. EYES: Denies blurred vision. Denies vision changes. Denies eye pain. EARS, NOSE, MOUTH & THROAT: Denies headache. Denies sore throat. Denies ear pain. CARDIOVASCULAR: Denies chest pain. Denies shortness of breath. Denies orthopnea. Denies PND. Denies palpitations. RESPIRATORY: Denies cough. GASTROINTESTINAL: Denies abdominal pain. Denies diarrhea. Denies constipation. Denies nausea. Denies vomiting. MUSCULOSKELETAL: Denies myalgias. INTEGUMENTARY: Denies pruitis. Denies rash. NEUROLOGIC: Denies numbness. Denies tingling. Denies weakness. PSYCHIATRIC: Denies anxiety. Denies depression. ENDOCRINE: Denies fatigue. Denies weight change. Denies polydipsia. Denies polyurina. GENITOURINARY: Denies burning, hematuria or urgency with micturation. HEMATOLOGIC: Denies history of anemia. Denies bleeding. Past Medical History Past Medical History: Cancer, CVA/TIA, Hyperlipidemia, Hypertension, Osteoarthritis (OA), Seizure Disorder, Thyroid Disorder Additional Past Medical History / Comment(s): seizure 2 yrs ago X1 AFTER FALL, STATES CLOSED HEAD INJURY,RANJIT'S, STATES WAS TOLD HAD TIA FROM TESTING, BUT PATIENT UNAWARE WHEN, hx skin cancer face, dr discontinued cholesterol meds 1 week ago.had rt shoulder steroid shot, occ vertigo, uses cane when up History of Any Multi-Drug Resistant Organisms: None Reported Past Surgical History: Back Surgery, Cholecystectomy, Joint Replacement, Orthopedic Surgery, Tonsillectomy Additional Past Surgical History / Comment(s): back surgery x2, abdominoplasty, josseline carpal tunnel, rt shoulder rotator cuff sx. left knee "arthroscopy/ clean out", JOSSELINE CATARACT,2 rt knee replacments/revision sx Past Anesthesia/Blood Transfusion Reactions: No Reported Reaction Smoking Status: Former smoker - Past Family History Mother Family Medical History: CVA/TIA Medications and Allergies Home Medications Medication Instructions Recorded Confirmed Type Levothyroxine Sodium [Synthroid] 50 mcg PO DAILY 03/06/14 12/10/17 History Lisinopril-Hctz 20-12.5 mg 1 tab PO DAILY 03/06/14 12/10/17 History [Zestoretic 20-12.5] Cephalexin [Keflex] 500 mg PO BID 09/12/16 12/10/17 History Allergies Allergy/AdvReac Type Severity Reaction Status Date / Time No Known Allergies Allergy Verified 12/10/17 19:58 Physical Exam Vitals: Vital Signs Temp Pulse Pulse Resp BP BP Pulse Ox 12/11/17 07:25 97.5 F L 67 17 119/51 98 12/11/17 04:00 62 16 12/11/17 02:15 97.8 F 62 16 128/50 98 12/11/17 00:00 72 16 12/10/17 23:54 98.5 F 71 16 107/50 98 12/10/17 20:00 80 16 12/10/17 18:31 80 16 140/74 93 L 12/10/17 18:15 78 16 156/75 98 12/10/17 16:40 69 19 156/75 100 12/10/17 14:16 98.3 F 66 20 132/60 99 Intake and Output 12/10/17 12/11/17 12/11/17 22:59 06:59 14:59 Intake Total 600 100 Balance 600 100 Intake: Oral 600 100 Other: Voiding Method Toilet Toilet # Voids 2 2 Blood pressure 119/51 heart rate 67 afebrile maintaining oxygen saturation on nasal cannula 2 L. GENERAL: This is a 67-year-old female in no apparent distress at the time of my examination. HEENT: Head is atraumatic, normocephalic. Pupils are equal, round. Sclerae anicteric. Conjunctivae are clear. Mucous membranes of the mouth are moist. Neck is supple. There is no jugular venous distention. No carotid bruit is heard. LUNGS: Clear to auscultation no wheezes, rales or rhonchi. No chest wall tenderness is noted on palpation or with deep breathing. HEART: Regular rate and rhythm without murmurs, rubs or gallops. S1 and S2 heard. ABDOMEN: Soft, nontender. Bowel sounds are heard. No organomegaly noted. EXTREMITIES: No evidence of peripheral edema and no calf tenderness noted. VASCULAR: Radial and dorsalis pedis pulses palpated, no evidence of clubbing. NEUROLOGIC: Patient is awake, alert and oriented x3. Results 12/10/17 14:40 12/10/17 14:40 Cardiac Enzymes 12/10/17 12/10/17 12/10/17 Range/Units 14:40 14:40 20:43 AST 38 H (14-36) U/L CK-MB (CK-2) 1.0 0.9 (0.0-2.4) ng/mL Troponin I <0.012 <0.012 (0.000-0.034) ng/mL 12/11/17 Range/Units 02:05 AST (14-36) U/L CK-MB (CK-2) 0.6 (0.0-2.4) ng/mL Troponin I <0.012 (0.000-0.034) ng/mL Coagulation 12/10/17 Range/Units 14:40 PT 10.1 (9.0-12.0) sec APTT 24.5 (22.0-30.0) sec Lipids 12/11/17 Range/Units 02:05 Triglycerides 147 (<150) mg/dL Cholesterol 164 (<200) mg/dL HDL Cholesterol 53 (40-60) mg/dL CBC 12/10/17 Range/Units 14:40 WBC 8.5 (3.8-10.6) k/uL RBC 4.45 (3.80-5.40) m/uL Hgb 11.8 (11.4-16.0) gm/dL Hct 35.5 (34.0-46.0) % Plt Count 280 (150-450) k/uL Comprehensive Metabolic Panel 12/10/17 Range/Units 14:40 Sodium 143 (137-145) mmol/L Potassium 4.9 (3.5-5.1) mmol/L Chloride 103 (98-107) mmol/L Carbon Dioxide 24 (22-30) mmol/L BUN 25 H (7-17) mg/dL Creatinine 0.70 (0.52-1.04) mg/dL Glucose 99 (74-99) mg/dL Calcium 10.3 H (8.4-10.2) mg/dL AST 38 H (14-36) U/L ALT 27 (9-52) U/L Alkaline Phosphatase 87 (38-126) U/L Total Protein 7.8 (6.3-8.2) g/dL Albumin 4.8 (3.5-5.0) g/dL Current Medications Generic Name Dose Route Start Last Admin Trade Name Freq PRN Reason Stop Dose Admin Acetaminophen 650 mg 12/10/17 19:52 12/11/17 06:14 Tylenol Tab PO 650 mg Q6HR PRN Administration Mild Pain or Fever > 100.5 Hydrocodone Bitart/Acetaminophen 1 each 12/10/17 18:00 12/11/17 02:08 [place] 10 PO 1 each Q8H KEVIN Administration Aspirin 325 mg 12/11/17 09:00 Aspirin PO DAILY [facility] Atorvastatin Calcium 80 mg 12/11/17 09:00 Lipitor PO DAILY [facility] Calcium Carbonate/Glycine 1,000 mg 12/10/17 19:52 Tums PO Q4HR PRN Dyspepsia Lisinopril/HCTZ 1 each 12/11/17 09:00 Zestoretic 20-12.5 PO DAILY KEVIN Lactulose 20 gm 12/10/17 19:52 Cephulac PO DAILY PRN Constipation Levothyroxine Sodium 50 mcg 12/11/17 06:30 12/11/17 06:14 Synthroid PO 50 mcg 0630 KEVIN Administration Lorazepam 0.5 mg 12/10/17 19:52 Ativan PO Q6HR PRN Anxiety Magnesium Hydroxide 2,400 mg 12/10/17 19:52 Milk Of Magnesia PO DAILY PRN Constipation Melatonin 3 mg 12/10/17 19:52 Melatonin PO HS PRN Insomnia Miscellaneous Information 1 each 12/10/17 16:24 Rx Info: Iv Contrast Was Given MISCELLANE 12/12/17 16:24 DAILY PRN Per Protocol Naloxone HCl 0.2 mg 12/10/17 19:52 Narcan IV Q2M PRN Opioid Reversal Nitroglycerin 0.4 mg 12/10/17 16:22 Nitrostat SUBLINGUAL Q5M PRN Chest Pain Nitroglycerin 0.5 inch 12/10/17 21:00 12/11/17 00:19 Nitro-Bid Oint TOPICAL Not Given Q8HR [facility] Ondansetron HCl 4 mg 12/10/17 19:52 Zofran IVP Q8HR PRN Nausea And Vomiting Intake and Output 12/10/17 12/11/17 12/11/17 22:59 06:59 14:59 Intake Total 600 100 Balance 600 100 Intake: Oral 600 100 Other: Voiding Method Toilet Toilet # Voids 2 2 12/10/17 14:40 12/10/17 14:40 Assessment and Plan Assessment: ASSESSMENT 1. Precordial chest pain. An acute coronary event has been ruled out with no EKG evidence of ischemia. 2. History of hypertension PLAN Obtain 2-D echocardiogram and Doppler study to assess cardiac structure and function. Perform to be demented stress echocardiogram to assess for stress induced cardiac ischemia. Stress test is normal she is stable from a cardiac perspective. Thank you kindly for this consultation. The above impression and plan of care have been discussed and directed by the signing physician. Abigail Ga, nurse practitioner, acting as scribe for signing physician.
--- NOTE | 2017-12-11 11:07 | ECHOF ---
Referral Reason:cp MEASUREMENTS -------- HEIGHT: 167.6 cm WEIGHT: 89.4 kg BP: 119/51 RVIDd: 2.8 cm (< 3.3) IVSd: 1.0 cm (0.6 - 1.1) LVIDd: 4.3 cm (3.9 - 5.3) LVPWd: 0.9 cm (0.6 - 1.1) IVSs: 1.4 cm LVIDs: 2.9 cm LVPWs: 1.5 cm LA Diam: 3.3 cm (2.7 - 3.8) LAESV Index (A-L): 23.80 ml/m Ao Diam: 3.2 cm (2.0 - 3.7) AV Cusp: 2.0 cm (1.5 - 2.6) MV EXCURSION: 16.074 mm (> 18.000) MV EF SLOPE: 70 mm/s (70 - 150) EPSS: 0.5 cm MV E Brennen: 1.04 m/s MV DecT: 260 ms MV A Brennen: 1.00 m/s MV E/A Ratio: 1.03 FINDINGS -------- Sinus rhythm. This was a technically good study. The left ventricular size is normal. Left ventricular wall thickness is normal. Overall left vent ricular systolic function is normal with, an EF between 55 - 60 %. The right ventricle is normal in size. Normal LA size by volume 22+/-6 ml/m2. The right atrial size is normal. Eustachian valve seen in the right atrium (normal finding). Interatrial septal aneurysm. There is mild aortic valve sclerosis. Mild mitral annular calcification present. Mild tricuspid regurgitation present. Right ventricular systolic pressure is normal at < 35 mmHg. Trace/mild (physiologic) pulmonic regurgitation. The aortic root size is normal. Normal inferior vena cava with normal inspiratory collapse consistent with estimated right atrial pre ssure of 5 mmHg. There is a trivial pericardial effusion present. CONCLUSIONS -------- 1. Sinus rhythm. 2. This was a technically good study. 3. The left ventricular size is normal. 4. Left ventricular wall thickness is normal. 5. Overall left ventricular systolic function is normal with, an EF between 55 - 60 %. 6. The right ventricle is normal in size. 7. Normal LA size by volume 22+/-6 ml/m2. 8. The right atrial size is normal. 9. Eustachian valve seen in the right atrium (normal finding). 10. Interatrial septal aneurysm. 11. There is mild aortic valve sclerosis. 12. Mild mitral annular calcification present. 13. Mild tricuspid regurgitation present. 14. Right ventricular systolic pressure is normal at < 35 mmHg. 15. Trace/mild (physiologic) pulmonic regurgitation. 16. The aortic root size is normal. 17. Normal inferior vena cava with normal inspiratory collapse consistent with estimated right atrial pressure of 5 mmHg. 18. There is a trivial pericardial effusion present. WORKFORCE DEVELOPMENT ASSISTANT: Catina Johnson RDCS
--- NOTE | 2017-12-11 11:47 | ECHOS ---
STRESS ECHOCARDIOGRAM DATE OF SERVICE: 12/11/2017 INDICATIONS: Chest pain. MEDICATIONS: BASELINE HEART RATE: 60 BASELINE BLOOD PRESSURE: 115/59 MAXIMUM HEART RATE: 133 MAXIMUM BLOOD PRESSURE: 268/66 85% MPHR: 130 100% MPHR: 153 METS: MAXIMUM STAGE REACHED: TOTAL EXERCISE TIME: CLINICAL INFORMATION: This is a dobutamine echo. Baseline EKG shows sinus rhythm, normal axis, normal intervals. The patient was given intravenous dobutamine over a period of 6 minutes as per protocol, achieving 87% of predicted maximal heart rate without chest pain or diagnostic ST-segment depression. Baseline echo shows normal left ventricular size, wall motion and systolic function. Post dobutamine infusion, there is normal hyperdynamic response of all segments of myocardium noted. CONCLUSIONS: 1. Negative stress test by EKG criteria. 2. Negative dobutamine echo. MMODL / IJN: [id number] /
[2017-12-11 11:51] VITALS: BP 134/66; PULSE 70; RESP 18; TEMP 98.5
--- NOTE | 2017-12-11 20:21 | DS ---
DISCHARGE SUMMARY DATE OF ADMISSION: 12/10/2017 DATE OF DISCHARGE: 12/11/2017 FINAL DIAGNOSES: 1. Anterior chest wall pain; could be musculoskeletal, with a negative stress test now. 2. Essential hypertension. 3. Hyperlipidemia. 4. Primary osteoarthritis of multiple joints. 5. History of seizures from closed-head injury. 6. Hypothyroidism. 7. Obesity; body mass index 31.8. HOSPITAL COURSE: This patient presented with chest pain. He has good cardiac risk factors. Did undergo a dobutamine stress echocardiogram that came back negative. Patient was given nitro tablets, told to follow up with Cardiology if symptoms recur. Patient otherwise is medically stable to proceed with her knee surgery coming up in 2 weeks. On examination, lungs are clear. CARDIOVASCULAR: First and second sounds normal. Potassium 4.9. Patient's chest CTA was negative for PE. Patient also had a 2-D echocardiogram that showed preserved LV function. CONSULTATION: Dr. Yulia Gonzalez. DISCHARGE MEDICATIONS: 1. Synthroid 50 mcg p.o. daily. 2. Zestoretic 20/12.5 one tablet p.o. daily. 3. Keflex 500 mg p.o. b.i.d. 4. Aspirin 81 mg p.o. daily. 5. Nitrostat 0.4 sublingually q.5 p.r.n. Follow up with Dr. Coffey in one week. Follow up with Dr. Yulia Gonzalez on January 07, 2018. MMVIDALL / DOREENN: [id number] /
== END 2017-12-11 16:52 | disposition home or self-care (01) ==
LOC: EC 14:12 → 3OBS 16:22
PROVIDERS: ADMIT Hospitalist; ATTEND Hospitalist
DX: R07.89 Other chest pain (principal); R06.02 Shortness of breath; R61 Generalized hyperhidrosis; I10 Essential (primary) hypertension; M15.9 Polyosteoarthritis, unspecified; Z96.651 Presence of right artificial knee joint; E06.3 Autoimmune thyroiditis; E03.9 Hypothyroidism, unspecified; E78.5 Hyperlipidemia, unspecified; G40.909 Epilepsy, unspecified, not intractable, without status epilepticus; Z68.31 Body mass index [BMI] 31.0-31.9, adult; E66.9 Obesity, unspecified; Z79.890 Hormone replacement therapy; Z79.2 Long term (current) use of antibiotics; Z79.82 Long term (current) use of aspirin; Z86.73 Personal history of transient ischemic attack (TIA), and cerebral infarction without residual deficits; Z90.49 Acquired absence of other specified parts of digestive tract; Z85.828 Personal history of other malignant neoplasm of skin; Z87.891 Personal history of nicotine dependence; Z82.3 Family history of stroke; Z80.0 Family history of malignant neoplasm of digestive organs; Z80.3 Family history of malignant neoplasm of breast
CPT/HCPCS: 99291 ×2; 36415; 93005; 93306; 93351; 85379; 80061; 80053; 82550 ×2; 82553 ×2; 83690; 83735; 84484 ×2; 85025; 85610; 85730; 71046; 71275; G0378 ×2; J1250; Q9967

== ENCOUNTER → 2018-01-24 | Outpatient (CLI) | payer MEDICARE, OTHER | END | disposition home or self-care (01) | LOC: LABWHC1 13:59 | PROVIDERS: ATTEND Orthopaedic Surgery Adult Reconstructive Orthopaedic Surgery | DX: Z01.812 Encounter for preprocedural laboratory examination (principal) | CPT/HCPCS: 87070 ==

== ENCOUNTER → 2018-06-16 | Outpatient (CLI) | payer MEDICARE, OTHER | END | disposition home or self-care (01) | LOC: LABWHC1 14:24 | PROVIDERS: ATTEND Orthopaedic Surgery Adult Reconstructive Orthopaedic Surgery | DX: Z01.89 Encounter for other specified special examinations (principal) | CPT/HCPCS: 87070 ==

== ENCOUNTER → 2018-08-21 | Outpatient (CLI) | payer MEDICARE, OTHER ==
[2018-08-21 17:42] LABS: Basophils % (A) 1 %; Eosinophils # (A) 0.3 k/uL (0-0.7); Eosinophils % (A) 5 %; HCT 33.9 % (34.0-46.0); HGB 10.8 gm/dL (11.4-16.0); Hypochromasia Slight; Lymphocytes # (A) 1.5 k/uL (1.0-4.8); Lymphocytes % (A) 29 %; MCH 26.9 pg (25.0-35.0); MCHC 31.9 g/dL (31.0-37.0); MCV 84.4 fL (80.0-100.0); Mean Platelet Volume 7.4; Monocytes # (A) 0.3 k/uL (0-1.0); Monocytes % (A) 7 %; Neutrophils # (A) 2.8 k/uL (1.3-7.7); Neutrophils % (A) 56 %; Platelet Count 218 k/uL (150-450); RBC 4.02 m/uL (3.80-5.40); RDW 14.6 % (11.5-15.5)
[2018-08-21 21:08] LABS: Erythrocyte Sedimentation Rate 20 mm/hr (0-20)
[2018-08-22 04:18] LABS: Albumin 4.7 g/dL (3.80-4.90); Albumin/Globulin Ratio 2.35 (1.20-2.10); Anion Gap 9.6 mmol/L (4.00-12.00); C Reactive Protein 0.6 mg/dL (0.0-0.8); Calcium 9.3 mg/dL (8.7-10.3); Carbon Dioxide 25.4 mmol/L (21.6-31.8); Total Bilirubin 0.4 mg/dL (0.3-1.2); Total Protein 6.7 g/dL (6.2-8.2)
== END | disposition home or self-care (01) ==
LOC: LABWHC1 17:16
PROVIDERS: ATTEND Internal Medicine Infectious Disease
DX: T84.53XA Infection and inflammatory reaction due to internal right knee prosthesis, initial encounter (principal)
CPT/HCPCS: 36415; 80053; 85025; 85652; 86140

== ENCOUNTER → 2018-09-24 | Outpatient (CLI) | payer MEDICARE, OTHER ==
--- NOTE | 2018-09-25 09:39 | MM ---
Reason for exam: screening (asymptomatic). Last mammogram was performed 1 year ago. History: Patient is postmenopausal and history of other cancer. Family history of breast cancer in mother at age 50. Physical Findings: A clinical breast exam by your physician is recommended on an annual basis and results should be correlated with mammographic findings. MG 3D Screening Mammo W/Cad Bilateral CC and MLO view(s) were taken. Prior study comparison: September 18, 2017, bilateral MG 3d screening mammo w/cad. August 21, 2016, bilateral MG 3d screening mammo w/cad. The breast tissue is heterogeneously dense. This may lower the sensitivity of mammography. Nodular density inner left CC 4cm from nipple. ASSESSMENT: Incomplete: need additional imaging evaluation, BI-RAD 0 RECOMMENDATION: Special view mammogram of the left breast. If lesion persists on supplemental views, image directed ultrasound is recommended. [facility] will attempt to contact patient to return for supplemental views and ultrasound if indicated.
== END | disposition home or self-care (01) ==
LOC: RADMAMWWP 11:49
PROVIDERS: ATTEND Family Medicine
DX: Z12.31 Encounter for screening mammogram for malignant neoplasm of breast (principal)
CPT/HCPCS: 77063; 77067

== ENCOUNTER → 2018-10-15 | Outpatient (CLI) | payer MEDICARE, OTHER ==
--- NOTE | 2018-10-15 13:35 | MM ---
Reason for exam: additional evaluation requested from abnormal screening. Last mammogram was performed 1 month ago. History: Patient is postmenopausal and history of other cancer. Family history of breast cancer in mother at age 50. Physical Findings: Nurse did not find any significant physical abnormalities on exam. MG 3D Work Up W/Cad LT Spot compression CC and ML view(s) were taken of the left breast. Prior study comparison: September 24, 2018, bilateral MG 3d screening mammo w/cad. September 18, 2017, bilateral MG 3d screening mammo w/cad. There are scattered fibroglandular densities. Benign calcifications in the left breast. These results were verbally communicated with the patient and result sheet given to the patient on 10/15/18. ASSESSMENT: Probably benign, BI-RAD 3 RECOMMENDATION: Follow-up diagnostic mammogram of the left breast in 6 months.
== END ==
LOC: RADMAMWWP 12:33
PROVIDERS: ATTEND Family Medicine
DX: R92.8 Other abnormal and inconclusive findings on diagnostic imaging of breast (principal)
CPT/HCPCS: 77065; G0279; 77061

== ENCOUNTER → 2019-05-08 | Outpatient (CLI) | payer MEDICARE ==
--- NOTE | 2019-05-08 13:57 | MM ---
Reason for exam: follow-up at short interval from prior study. Last mammogram was performed 7 months ago. History: Patient is postmenopausal and history of other cancer. Family history of breast cancer in mother at age 50. Physical Findings: Nurse did not find any significant physical abnormalities on exam. MG 3D Diag Mammo W/Cad LT CC and MLO view(s) were taken of the left breast. Prior study comparison: October 15, 2018, left breast MG 3d work up w/cad LT. September 24, 2018, bilateral MG 3d screening mammo w/cad. There are scattered fibroglandular densities. Finding: There is a typically benign 4 mm high density, round mass in the upper inner quadrant, anterior position of the left breast. There is a chronic nodularity in the left breast. No significant changes in finding since October 15, 2018 and September 24, 2018. These results were verbally communicated with the patient and result sheet given to the patient on 05/08/19. ASSESSMENT: Benign, BI-RAD 2 RECOMMENDATION: Return to routine screening mammogram schedule for both breasts. Back on schedule.
== END | disposition home or self-care (01) ==
LOC: RADMAMWWP 12:59
PROVIDERS: ATTEND Family Medicine
DX: R92.8 Other abnormal and inconclusive findings on diagnostic imaging of breast (principal)
CPT/HCPCS: 77065; G0279; 77061

== ENCOUNTER → 2019-05-16 | Outpatient (CLI) | payer MEDICARE ==
--- NOTE | 2019-05-17 18:04 | MR ---
EXAMINATION TYPE: MR tib fib RT wo con DATE OF EXAM: 05/16/2019 COMPARISON: None HISTORY: Rt tib fit pain, stress fx Standard multiplanar, multisequence MRI departmental protocol Multiplanar, multisequence images of the right tibia and fibula were acquired. FINDINGS: There is some metal artifact related to bilateral knee prosthesis. There is metal artifact obscures bone detail in the proximal shaft of the right tibia. I see no displaced fracture. There is subcutaneous edema around the right lower leg. The right fibula appears intact. There is no evidence of a soft tissue mass. IMPRESSION: Exam limited somewhat by artifact. No displaced fracture seen. Correlation with a plain film exam wou ld be helpful. Mild subcutaneous edema. Stress fracture at the site of the right knee prosthesis arlen ot be evaluated due to artifact.
== END | disposition home or self-care (01) ==
LOC: RADMRIMAIN 10:14
PROVIDERS: ATTEND Physician Assistant Surgical
DX: M84.361A Stress fracture, right tibia, initial encounter for fracture (principal)

== ENCOUNTER → 2020-08-04 | Outpatient (CLI) | payer MEDICARE ==
--- NOTE | 2020-08-05 10:49 | MM ---
Reason for exam: screening (asymptomatic). Last mammogram was performed 1 year and 3 months ago. History: Patient is postmenopausal and history of other cancer. Family history of breast cancer in mother at age 50. Physical Findings: A clinical breast exam by your physician is recommended on an annual basis and results should be correlated with mammographic findings. MG 3D Screening Mammo W/Cad Bilateral CC and MLO view(s) were taken. Prior study comparison: May 08, 2019, left breast MG 3d diag mammo w/cad LT. October 15, 2018, left breast MG 3d work up w/cad LT. There are scattered fibroglandular densities. There is no discrete abnormality. No significant changes when compared with prior studies. ASSESSMENT: Negative, BI-RAD 1 RECOMMENDATION: Routine screening mammogram of both breasts in 1 year.
== END | disposition home or self-care (01) ==
LOC: RADMAMWWP 14:38
PROVIDERS: ATTEND Family Medicine
DX: Z12.31 Encounter for screening mammogram for malignant neoplasm of breast (principal)
CPT/HCPCS: 77063; 77067

== ENCOUNTER 2020-10-24 11:56 | Emergency (ER) | payer MEDICARE ==
[2020-10-24] MEDS ORDERED: ACETAMINOPHEN TAB 500 MG TAB PO STA (12:25)
[2020-10-24] MEDS ORDERED: SODIUM CHLORIDE 0.9% 1,000 ML IV ONE (12:25)
[2020-10-24] MEDS ORDERED: IBUPROFEN 600 MG TAB PO STA (12:25)
--- NOTE | 2020-10-24 12:28 | ED ---
General Adult HPI - General Chief complaint: Weakness Stated complaint: weakness/COVID+ Time Seen by Provider: 10/24/20 12:00 Source: patient, EMS, RN notes reviewed, old records reviewed Mode of arrival: EMS Limitations: no limitations - History of Present Illness Initial comments: This is a 70-year-old female who presents emergency department with past medical history significant for high blood pressure and high cholesterol. Patient comes in complaining that since last Saturday she has felt extremely fatigued and mildly nauseated and had a fever since. Patient states Saturday of last week she was tested positive for COVID. Patient denies any shortness of breath states she does have a dry cough but she denies any dyspnea at any time per patient denies chest pain or palpitations. Patient denies any abdominal pain patient denies vomiting or diarrhea per patient denies any loss of smell or taste. Patient denies headache patient denies numbness weakness. - Related Data Home Medications Medication Instructions Recorded Confirmed Levothyroxine Sodium [Synthroid] 50 mcg PO DAILY 03/06/14 10/24/20 Lisinopril-Hctz 20-12.5 mg 1 tab PO DAILY 03/06/14 10/24/20 [Zestoretic 20-12.5] Cholecalciferol [Vitamin D3 (25 25 mcg PO DAILY 10/24/20 10/24/20 Mcg = 1000 Iu)] Diclofenac Sodium [Diclofenac 100 mg PO DAILY PRN 10/24/20 10/24/20 Sodium ER] Zinc 50 mg PO DAILY 10/24/20 10/24/20 cefaDROXiL [Duricef] 500 mg PO DAILY 10/24/20 10/24/20 gemfibroziL [Lopid] 600 mg PO DAILY 10/24/20 10/24/20 Previous Rx's Medication Instructions Recorded Nitroglycerin Sl Tabs [Nitrostat] 0.4 mg SUBLINGUAL Q5M PRN #25 tab 12/11/17 Allergies Allergy/AdvReac Type Severity Reaction Status Date / Time No Known Allergies Allergy Verified 10/24/20 12:45 Review of Systems ROS Statement: Those systems with pertinent positive or pertinent negative responses have been documented in the HPI. ROS Other: All systems not noted in ROS Statement are negative. Past Medical History Past Medical History: Cancer, CVA/TIA, Hyperlipidemia, Hypertension, Osteoarthritis (OA), Seizure Disorder, Thyroid Disorder Additional Past Medical History / Comment(s): seizure 2 yrs ago X1 AFTER FALL, STATES CLOSED HEAD INJURY,RANJIT'S, STATES WAS TOLD HAD TIA FROM TESTING, BUT PATIENT UNAWARE WHEN, hx skin cancer face, dr discontinued cholesterol meds 1 week ago.had rt shoulder steroid shot, occ vertigo, History of Any Multi-Drug Resistant Organisms: MRSA Date of last positivie culture/infection: 2014 MDRO Source:: right knee Past Surgical History: Back Surgery, Cholecystectomy, Joint Replacement, Orthopedic Surgery, Tonsillectomy Additional Past Surgical History / Comment(s): back surgery x2, abdominoplasty, josseline carpal tunnel, rt shoulder rotator cuff sx. left knee "arthroscopy/ clean out", JOSSELINE CATARACT,2 rt knee replacments/revision sx Past Anesthesia/Blood Transfusion Reactions: No Reported Reaction Past Psychological History: No Psychological Hx Reported Smoking Status: Never smoker Past Alcohol Use History: Rare Past Drug Use History: None Reported - Past Family History Mother Family Medical History: CVA/TIA General Exam - General Exam Comments Initial Comments: GENERAL: Patient is well-developed and well-nourished. Patient is nontoxic and well- hydrated and is in mild distress. ENT: Neck is soft and supple. No significant lymphadenopathy is noted. Oropharynx is clear. Moist mucous membranes. Neck has full range of motion without eliciting any pain. EYES: The sclera were anicteric and conjunctiva were pink and moist. Extraocular movements were intact and pupils were equal round and reactive to light. Eyelids were unremarkable. PULMONARY: Unlabored respirations. Good breath sounds bilaterally. No audible rales rhonchi or wheezing was noted. CARDIOVASCULAR: There is a regular rate and rhythm without any murmurs gallops or rubs. ABDOMEN: Soft and nontender with normal bowel sounds. SKIN: Skin is clear with no lesions or rashes and otherwise unremarkable. NEUROLOGIC: Patient is alert and oriented x3. Cranial nerves II through XII are grossly intact. Motor and sensory are also intact. Normal speech, volume and content. Symmetrical smile. MUSCULOSKELETAL: Normal extremities with adequate strength and full range of motion. No lower extremity swelling or edema. No calf tenderness. LYMPHATICS: No significant lymphadenopathy is noted PSYCHIATRIC: Normal psychiatric evaluation. Limitations: no limitations Course Vital Signs 10/24/20 10/24/20 12:12 13:45 Temperature 101.7 F H 101 F H Pulse Rate 78 87 Respiratory 20 18 Rate Blood Pressure 139/77 137/88 O2 Sat by Pulse 97 98 Oximetry Medical Decision Making - Medical Decision Making Chest x-ray shows COVID pneumonia. Patient qualified for monoclonal antibodies I went over the complications and side effects of the monoclonal 5 patient was willing to try them. Patient was n ot hypoxic and was not feeling short of breath. Patient was given monoclonal antibodies and then observed for one hour. - Lab Data Result diagrams: 10/24/20 12:41 10/24/20 12:41 Lab Results 10/24/20 10/24/20 Range/Units 12:41 12:41 WBC 2.5 L (3.8-10.6) k/uL RBC 4.46 (3.80-5.40) m/uL Hgb 12.4 (11.4-16.0) gm/dL Hct 37.8 (34.0-46.0) % MCV 84.6 (80.0-100.0) fL MCH 27.7 (25.0-35.0) pg MCHC 32.8 (31.0-37.0) g/dL RDW 13.3 (11.5-15.5) % Plt Count 130 L (150-450) k/uL MPV 7.8 Neutrophils % 57 % Lymphocytes % 33 % Monocytes % 7 % Eosinophils % 1 % Basophils % 1 % Neutrophils # 1.4 (1.3-7.7) k/uL Lymphocytes # 0.8 L (1.0-4.8) k/uL Monocytes # 0.2 (0-1.0) k/uL Eosinophils # 0.0 (0-0.7) k/uL Basophils # 0.0 (0-0.2) k/uL Sodium 139 (137-145) mmol/L Potassium 4.4 (3.5-5.1) mmol/L Chloride 104 (98-107) mmol/L Carbon Dioxide 29 (22-30) mmol/L Anion Gap 6 mmol/L BUN 15 (7-17) mg/dL Creatinine 0.71 (0.52-1.04) mg/dL Est GFR (CKD-EPI)AfAm >90 (>60 ml/min/1.73 sqM) Est GFR (CKD-EPI)NonAf 87 (>60 ml/min/1.73 sqM) Glucose 96 (74-99) mg/dL Calcium 8.8 (8.4-10.2) mg/dL Total Bilirubin 0.3 (0.2-1.3) mg/dL AST 342 H (14-36) U/L ALT 155 H (4-34) U/L Alkaline Phosphatase 126 (38-126) U/L Total Protein 6.7 (6.3-8.2) g/dL Albumin 4.1 (3.5-5.0) g/dL Disposition Clinical Impression: Pneumonia due to COVID-19 virus Disposition: HOME SELF-CARE Condition: Good Instructions (If sedation given, give patient instructions): Coronavirus Disease 2019 (COVID-19) Is patient prescribed a controlled substance at d/c from ED?: No Referrals: Allan Coffey DO [Primary Care Provider] - 1-2 days Time of Disposition: 15:34
[2020-10-24 12:52] LABS: Basophils % (A) 1 %; Eosinophils % (A) 1 %; HCT 37.8 % (34.0-46.0); HGB 12.4 gm/dL (11.4-16.0); Lymphocytes # (A) 0.8 k/uL (1.0-4.8); Lymphocytes % (A) 33 %; MCH 27.7 pg (25.0-35.0); MCHC 32.8 g/dL (31.0-37.0); MCV 84.6 fL (80.0-100.0); Mean Platelet Volume 7.8; Monocytes # (A) 0.2 k/uL (0-1.0); Monocytes % (A) 7 %; Neutrophils # (A) 1.4 k/uL (1.3-7.7); Neutrophils % (A) 57 %; Platelet Count 130 k/uL (150-450); RBC 4.46 m/uL (3.80-5.40); RDW 13.3 % (11.5-15.5); WBC 2.5 k/uL (3.8-10.6)
[2020-10-24 13:04] LABS: ALT 155 U/L (4-34); AST 342 U/L (14-36); African American GFR (CKD) >90 (>60 ml/min/1.73 sqM); Albumin 4.1 g/dL (3.5-5.0); Alkaline Phosphatase 126 U/L (38-126); Anion Gap 6 mmol/L; Blood Urea Nitrogen 15 mg/dL (7-17); Calcium 8.8 mg/dL (8.4-10.2); Carbon Dioxide 29 mmol/L (22-30); Chloride 104 mmol/L (98-107); Glucose 96 mg/dL (74-99); Non-African American GFR(CKD) 87 (>60 ml/min/1.73 sqM); Potassium 4.4 mmol/L (3.5-5.1); Sodium 139 mmol/L (137-145); Total Bilirubin 0.3 mg/dL (0.2-1.3); Total Protein 6.7 g/dL (6.3-8.2)
--- NOTE | 2020-10-24 13:18 | XR ---
EXAMINATION TYPE: XR chest 2V DATE OF EXAM: 10/24/2020 COMPARISON: 12/10/2017 HISTORY: 70 year-old female shortness of breath, difficulty breathing, COVID positive. TECHNIQUE: PA and lateral views FINDINGS: The cardiomediastinal silhouette, aorta, and pulmonary vasculature are within normal limits. Lungs an d pleural spaces are clear. IMPRESSION: A few scattered patchy peripheral infiltrates and increased interstitial density. Findings may be see n with COVID pneumonia.
[2020-10-24 13:46] VITALS: BP 137/88; RESP 18
[2020-10-24] MEDS ORDERED: BAMLANIVIMAB 700 MG in SODIUM CHLORIDE 0.9% 50 ML IVPB ONE (15:30)
[2020-10-24 15:48] VITALS: PULSE 78
[2020-10-24 17:09] VITALS: TEMP 98.7
== END 2020-10-24 17:31 | disposition home or self-care (01) ==
LOC: EC 11:56
DX: U07.1 COVID-19 (principal); J12.82 Pneumonia due to coronavirus disease 2019; I10 Essential (primary) hypertension; E78.00 Pure hypercholesterolemia, unspecified; E78.5 Hyperlipidemia, unspecified; Z86.73 Personal history of transient ischemic attack (TIA), and cerebral infarction without residual deficits
CPT/HCPCS: 36415; 80053; 85025; 87635; 71046; 99284; 96360; Q0239

== ENCOUNTER 2020-10-25 12:40 | Emergency (ER) | payer MEDICARE ==
--- NOTE | 2020-10-25 13:27 | ED ---
General Adult HPI - General Chief complaint: Nausea/Vomiting/Diarrhea Stated complaint: Covid+, N/V/D Time Seen by Provider: 10/25/20 12:59 Source: patient, EMS Mode of arrival: EMS Limitations: no limitations - History of Present Illness Initial comments: Dictation was produced using [employer] dictation software. please excuse any grammatical, word or spelling errors. This patient was cared for during a federal and state declared state of emergen cy secondary to Covid 19 Chief Complaint: 70-year-old female past medical history of CVA, dyslipidemia hypertension presents with inability to perform her activities of daily living and generalized weakness History of Present Illness: And is a 70-year-old female she is 10 days symptomatic from coronavirus. Patient tested +6 days ago. She was seen here yesterday for the same complaints. She is not hypoxic. She was given monoclonal antibodies and discharged home. Today she states that she was feeling very sick. Patient states she was feeling so weak she can't perform her activities of daily living. She lives at home by herself without any family to assist her. Patient states she's been quarantining at home however she does not want to expose anybody else to her contagious disease. Patient isn't dyspneic. The ROS documented in this emergency department record has been reviewed and confirmed by me. Those systems with pertinent positive or negative responses have been documented in the HPI. All other systems are other negative and/or noncontributory. PHYSICAL EXAM: General Impression: Alert and oriented x3, not in acute distress HEENT: Normocephalic atraumatic, extra-ocular movements intact, pupils equal and reactive to light bilaterally, mucous membranes moist. Cardiovascular: Heart regular rate and rhythm Chest: Able to complete full sentences, no retractions, no tachypnea Abdomen: abdomen soft, non-tender, non-distended, no organomegaly Musculoskeletal: Pulses present and equal in all extremities, no peripheral edema Motor: no focal deficits noted Neurological: CN II-XII grossly intact, no focal motor or sensory deficits noted Skin: Intact with no visualized rashes Psych: Normal affect and mood ED course: 70-year-old feel presents with generalized weakness. Signs upon arrival are within acceptable limits. Patient is not hypoxic. CBC is improved since yesterday. Platelet counts 138. Similar to yesterday. Metabolic panel is unremarkable. Case is discussed with daughter. Daughter states they're currently trying to park a camper near mother residence so that they can be nearby to provide her assistance while avoiding prolonged exposure to reduce spreading disease amongst the family. She does not show any signs of respiratory distress furthermore, she is not hypoxic. At this point there is no criteria for admission at this time. Patient given a dose of Decadron. X-ray appears to be stable. She is reevaluated at bedside at 10:45 PM stable medical condition. She is still not hypoxic and resting comfortably. Disposition was discussed with patient and patient's daughter over the phone who are agreeable. They do have a disposition for her where that, considering Her nearby the patient so patient can be assisted. Return parameters discussed. EKG interpretation: Ventricular rate 62, normal sinus rhythm,. Interval and 60, QRS 66, QTC 410.. No NM prolongation, no QTC prolongation, no ST or T-wave changes noted. Overall, this EKG is unremarkable - Related Data Home Medications Medication Instructions Recorded Confirmed Levothyroxine Sodium [Synthroid] 50 mcg PO DAILY 03/06/14 10/24/20 Lisinopril-Hctz 20-12.5 mg 1 tab PO DAILY 03/06/14 10/24/20 [Zestoretic 20-12.5] Cholecalciferol [Vitamin D3 (25 25 mcg PO DAILY 10/24/20 10/24/20 Mcg = 1000 Iu)] Diclofenac Sodium [Diclofenac 100 mg PO DAILY PRN 10/24/20 10/24/20 Sodium ER] Zinc 50 mg PO DAILY 10/24/20 10/24/20 cefaDROXiL [Duricef] 500 mg PO DAILY 10/24/20 10/24/20 gemfibroziL [Lopid] 600 mg PO DAILY 10/24/20 10/24/20 Previous Rx's Medication Instructions Recorded Nitroglycerin Sl Tabs [Nitrostat] 0.4 mg SUBLINGUAL Q5M PRN #25 tab 12/11/17 Allergies Allergy/AdvReac Type Severity Reaction Status Date / Time No Known Allergies Allergy Verified 10/25/20 13:10 Review of Systems ROS Statement: Those systems with pertinent positive or pertinent negative responses have been documented in the HPI. ROS Other: All systems not noted in ROS Statement are negative. Past Medical History Past Medical History: Cancer, CVA/TIA, Hyperlipidemia, Hypertension, Osteoarthritis (OA), Seizure Disorder, Thyroid Disorder Additional Past Medical History / Comment(s): seizure 2 yrs ago X1 AFTER FALL, STATES CLOSED HEAD INJURY,RANJIT'S, STATES WAS TOLD HAD TIA FROM TESTING, BUT PATIENT UNAWARE WHEN, hx skin cancer face, dr discontinued cholesterol meds 1 week ago.had rt shoulder steroid shot, occ vertigo, History of Any Multi-Drug Resistant Organisms: MRSA Date of last positivie culture/infection: 2014 MDRO Source:: right knee Past Surgical History: Back Surgery, Cholecystectomy, Joint Replacement, Orthopedic Surgery, Tonsillectomy Additional Past Surgical History / Comment(s): back surgery x2, abdominoplasty, josseline carpal tunnel, rt shoulder rotator cuff sx. left knee "arthroscopy/ clean out", JOSSELINE CATARACT,2 rt knee replacments/revision sx Past Anesthesia/Blood Transfusion Reactions: No Reported Reaction Past Psychological History: No Psychological Hx Reported Smoking Status: Never smoker Past Alcohol Use History: Rare Past Drug Use History: None Reported - Past Family History Mother Family Medical History: CVA/TIA General Exam Limitations: no limitations Course Vital Signs 10/25/20 10/25/20 13:07 14:10 Temperature 98.9 F Pulse Rate 66 64 Respiratory 20 18 Rate Blood Pressure 121/64 129/62 O2 Sat by Pulse 95 97 Oximetry Medical Decision Making - Lab Data Result diagrams: 10/25/20 13:37 10/25/20 13:37 Lab Results 10/25/20 10/25/20 10/25/20 Range/Units 13:37 13:37 13:37 WBC 3.3 L (3.8-10.6) k/uL RBC 4.48 (3.80-5.40) m/uL Hgb 12.4 (11.4-16.0) gm/dL Hct 37.4 (34.0-46.0) % MCV 83.5 (80.0-100.0) fL MCH 27.6 (25.0-35.0) pg MCHC 33.1 (31.0-37.0) g/dL RDW 13.3 (11.5-15.5) % Plt Count 138 L (150-450) k/uL MPV 7.8 Neutrophils % 72 % Lymphocytes % 21 % Monocytes % 5 % Eosinophils % 0 % Basophils % 0 % Neutrophils # 2.4 (1.3-7.7) k/uL Lymphocytes # 0.7 L (1.0-4.8) k/uL Monocytes # 0.2 (0-1.0) k/uL Eosinophils # 0.0 (0-0.7) k/uL Basophils # 0.0 (0-0.2) k/uL Sodium 138 (137-145) mmol/L Potassium 4.0 (3.5-5.1) mmol/L Chloride 102 (98-107) mmol/L Carbon Dioxide 25 (22-30) mmol/L Anion Gap 11 mmol/L BUN 16 (7-17) mg/dL Creatinine 0.64 (0.52-1.04) mg/dL Est GFR (CKD-EPI)AfAm >90 (>60 ml/min/1.73 sqM) Est GFR (CKD-EPI)NonAf >90 (>60 ml/min/1.73 sqM) Glucose 124 H (74-99) mg/dL Plasma Lactic Acid Zachery 0.8 (0.7-2.0) mmol/L Calcium 8.6 (8.4-10.2) mg/dL Magnesium 1.8 (1.6-2.3) mg/dL Disposition Clinical Impression: Malaise, COVID-19 Disposition: HOME SELF-CARE Condition: Fair Instructions (If sedation given, give patient instructions): Viral Pneumonia (ED) Additional Instructions: Today you were evaluated for symptoms consistent with upper respiratory infection. Today you tested positive for Covid 19. Your are stable for discharge, however it is instructed to to seek immediate medical attention especially if you develop worsening symptoms especially respiratory distress. If possible, try to obtain a pulse oximeter and monitor your oxygen at home. In the meantime please remain in quarantine for 14 days. For any other questions please contact Mike for here in emergency department or [facility] at [phone] Is patient prescribed a controlled substance at d/c from ED?: No Referrals: Allan Coffey DO [Primary Care Provider] - 1-2 days Time of Disposition: 14:50
[2020-10-25 13:47] LABS: Basophils % (A) 0 %; Eosinophils % (A) 0 %; HCT 37.4 % (34.0-46.0); HGB 12.4 gm/dL (11.4-16.0); Lymphocytes # (A) 0.7 k/uL (1.0-4.8); Lymphocytes % (A) 21 %; MCH 27.6 pg (25.0-35.0); MCHC 33.1 g/dL (31.0-37.0); MCV 83.5 fL (80.0-100.0); Mean Platelet Volume 7.8; Monocytes # (A) 0.2 k/uL (0-1.0); Monocytes % (A) 5 %; Neutrophils # (A) 2.4 k/uL (1.3-7.7); Neutrophils % (A) 72 %; Platelet Count 138 k/uL (150-450); RBC 4.48 m/uL (3.80-5.40); RDW 13.3 % (11.5-15.5); WBC 3.3 k/uL (3.8-10.6)
[2020-10-25 13:56] LABS: African American GFR (CKD) >90 (>60 ml/min/1.73 sqM); Anion Gap 11 mmol/L; Blood Urea Nitrogen 16 mg/dL (7-17); Calcium 8.6 mg/dL (8.4-10.2); Carbon Dioxide 25 mmol/L (22-30); Chloride 102 mmol/L (98-107); Glucose 124 mg/dL (74-99); Magnesium 1.8 mg/dL (1.6-2.3); Non-African American GFR(CKD) >90 (>60 ml/min/1.73 sqM); Sodium 138 mmol/L (137-145)
[2020-10-25] MEDS ORDERED: ACETAMINOPHEN TAB 500 MG TAB PO STA (14:03)
--- NOTE | 2020-10-25 14:38 | XR ---
EXAMINATION TYPE: XR chest 1V portable DATE OF EXAM: 10/25/2020 COMPARISON: Chest x-ray from yesterday. HISTORY: Weakness. Covid 19 positive TECHNIQUE: Single AP portable frontal upright view of the chest is obtained. FINDINGS: There is redemonstration of increased focal opacity right midlung laterally and in the lef t lung base. Lateral left midlung opacity less well seen on current study. Overlying EKG leads noted on current study. No new focal airspace opacity, pleural effusion, or pneumothorax identified. The ca rdiac silhouette size is stable and within normal limits. The osseous structures are intact. IMPRESSION: Persistent lateral right midlung and left basilar acute infiltrates consistent with covi d 19 infection. No new acute infiltrates clearly seen.
[2020-10-25 16:32] VITALS: BP 114/65; PULSE 71; RESP 20; TEMP 98
== END 2020-10-25 16:32 | disposition home or self-care (01) ==
LOC: EC 12:40
DX: U07.1 COVID-19 (principal); R53.81 Other malaise; I10 Essential (primary) hypertension; Z85.828 Personal history of other malignant neoplasm of skin; Z86.73 Personal history of transient ischemic attack (TIA), and cerebral infarction without residual deficits
CPT/HCPCS: 36415; 71045; 80048; 83605; 83735; 85025; 93005; 99284

== ENCOUNTER 2020-12-24 12:58 | Emergency (ER) | payer MEDICARE ==
[2020-12-24 13:13] VITALS: BP 153/77; PULSE 68; RESP 18; TEMP 98
[2020-12-24] MEDS ORDERED: methylPREDNISolone SOD SUCCI 125 MG/2 ML VIAL IM ONE (13:45)
[2020-12-24] MEDS ORDERED: HYDROmorphone 0.5 MG/0.5 ML SYRINGE IM STA (13:45)
--- NOTE | 2020-12-24 13:49 | ED ---
General Adult HPI - General Chief complaint: Back Pain/Injury Stated complaint: back pain Time Seen by Provider: 12/24/20 13:10 Source: patient, RN notes reviewed, old records reviewed Mode of arrival: ambulatory Limitations: no limitations - History of Present Illness Initial comments: This is a 70-year-old female presents emergency Department complaining of having sciatica. Patient states pains in the right side of her back radiates down her leg. Patient denies any numbness or weakness. Patient denies any urinary incontinence or retention. Patient denies any recent injury. Patient states she's had multiple back surgeries in the past. Patient denies any other problems at this time. Patient states she's here just a steroid shot - Related Data Home Medications Medication Instructions Recorded Confirmed Levothyroxine Sodium [Synthroid] 50 mcg PO DAILY 03/06/14 10/24/20 Lisinopril-Hctz 20-12.5 mg 1 tab PO DAILY 03/06/14 10/24/20 [Zestoretic 20-12.5] Cholecalciferol [Vitamin D3 (25 25 mcg PO DAILY 10/24/20 10/24/20 Mcg = 1000 Iu)] Diclofenac Sodium [Diclofenac 100 mg PO DAILY PRN 10/24/20 10/24/20 Sodium ER] Zinc 50 mg PO DAILY 10/24/20 10/24/20 cefaDROXiL [Duricef] 500 mg PO DAILY 10/24/20 10/24/20 gemfibroziL [Lopid] 600 mg PO DAILY 10/24/20 10/24/20 Previous Rx's Medication Instructions Recorded Nitroglycerin Sl Tabs [Nitrostat] 0.4 mg SUBLINGUAL Q5M PRN #25 tab 12/11/17 predniSONE [Deltasone] 40 mg PO DAILY #8 tab 12/24/20 Allergies Allergy/AdvReac Type Severity Reaction Status Date / Time No Known Allergies Allergy Verified 12/24/20 13:09 Review of Systems ROS Statement: Those systems with pertinent positive or pertinent negative responses have been documented in the HPI. ROS Other: All systems not noted in ROS Statement are negative. Past Medical History Past Medical History: Cancer, CVA/TIA, Hyperlipidemia, Hypertension, Osteoarthritis (OA), Seizure Disorder, Thyroid Disorder Additional Past Medical History / Comment(s): seizure 2 yrs ago X1 AFTER FALL, STATES CLOSED HEAD INJURY,RANJIT'S, STATES WAS TOLD HAD TIA FROM TESTING, BUT PATIENT UNAWARE WHEN, hx skin cancer face, dr discontinued cholesterol meds 1 week ago.had rt shoulder steroid shot, occ vertigo, covid 09/2020, History of Any Multi-Drug Resistant Organisms: MRSA Date of last positivie culture/infection: 2014 MDRO Source:: right knee Past Surgical History: Back Surgery, Cholecystectomy, Joint Replacement, Orthopedic Surgery, Tonsillectomy Additional Past Surgical History / Comment(s): back surgery x2, abdominoplasty, josseline carpal tunnel, rt shoulder rotator cuff sx. left knee "arthroscopy/ clean out", JOSSELINE CATARACT,2 rt knee replacments/revision sx Past Anesthesia/Blood Transfusion Reactions: No Reported Reaction Past Psychological History: No Psychological Hx Reported Smoking Status: Former smoker Past Alcohol Use History: Rare Past Drug Use History: None Reported - Past Family History Mother Family Medical History: CVA/TIA General Exam - General Exam Comments Initial Comments: GENERAL: Patient is well-developed and well-nourished. Patient is nontoxic and well- hydrated and is in mild distress. ENT: Neck is soft and supple. No significant lymphadenopathy is noted. Oropharynx is clear. Moist mucous membranes. Neck has full range of motion without eliciting any pain. EYES: The sclera were anicteric and conjunctiva were pink and moist. Extraocular movements were intact and pupils were equal round and reactive to light. Eyelids were unremarkable. PULMONARY: Unlabored respirations. Good breath sounds bilaterally. No audible rales rhonchi or wheezing was noted. CARDIOVASCULAR: There is a regular rate and rhythm without any murmurs gallops or rubs. ABDOMEN: Soft and nontender with normal bowel sounds. No palpable organomegaly was noted. There is no palpable pulsatile mass. SKIN: Skin is clear with no lesions or rashes and otherwise unremarkable. NEUROLOGIC: Patient is alert and oriented x3. Cranial nerves II through XII are grossly intact. Motor and sensory are also intact. Normal speech, volume and content. Symmetrical smile. Patient's negative straight leg test. MUSCULOSKELETAL: Normal extremities with adequate strength and full range of motion. LYMPHATICS: No significant lymphadenopathy is noted PSYCHIATRIC: Normal psychiatric evaluation. Limitations: no limitations Course Vital Signs 12/24/20 13:07 Temperature 98.0 F Pulse Rate 68 Respiratory 18 Rate Blood Pressure 153/77 O2 Sat by Pulse 98 Oximetry Disposition Clinical Impression: Sciatica Disposition: HOME SELF-CARE Condition: Good Instructions (If sedation given, give patient instructions): Sciatica (ED) Additional Instructions: Patient should not take the steroids with any anti-inflammatory medications. Patient can supplement with Tylenol. Patient should follow-up with the primary medical care doctor. Prescriptions: predniSONE [Deltasone] 40 mg PO DAILY #8 tab Is patient prescribed a controlled substance at d/c from ED?: No Referrals: Allan Coffey DO [Primary Care Provider] - 1-2 days Time of Disposition: 13:48
== END 2020-12-24 14:15 | disposition home or self-care (01) ==
LOC: EC 12:58
DX: M54.30 Sciatica, unspecified side (principal); E78.5 Hyperlipidemia, unspecified; I10 Essential (primary) hypertension; G40.909 Epilepsy, unspecified, not intractable, without status epilepticus; M19.90 Unspecified osteoarthritis, unspecified site; Z87.891 Personal history of nicotine dependence; Z86.73 Personal history of transient ischemic attack (TIA), and cerebral infarction without residual deficits; Z79.899 Other long term (current) drug therapy
CPT/HCPCS: 99283; 96372 ×2; J2930; J1170

== ENCOUNTER → 2021-01-25 | Outpatient (CLI) | payer MEDICARE ==
--- NOTE | 2021-01-25 12:46 | XR ---
EXAMINATION TYPE: XR chest 2V DATE OF EXAM: 01/25/2021 COMPARISON: Prior chest x-ray October 25, 2020 HISTORY: COVID 2 months ago with abnormal x-ray TECHNIQUE: Frontal and lateral views of the chest are obtained. FINDINGS: Stable low lung volumes. There is no new suspicious focal air space opacity, pleural effusi on, or pneumothorax seen. The cardiac silhouette size is stable and within normal limits. Partial vi sualization of surgical change in the lumbar spine.. IMPRESSION: No acute pulmonary process currently.
== END | disposition home or self-care (01) ==
LOC: RADXRMAIN 12:21
PROVIDERS: ATTEND Family Medicine
DX: R91.8 Other nonspecific abnormal finding of lung field (principal); Z86.16 Personal history of COVID-19
CPT/HCPCS: 71046

== ENCOUNTER → 2021-10-20 | Outpatient (CLI) | payer MEDICARE ==
--- NOTE | 2021-10-23 13:51 | MM ---
Reason for exam: screening (asymptomatic). Last mammogram was performed 1 year and 3 months ago. History: Patient is postmenopausal and history of other cancer. Family history of breast cancer in mother at age 50. Physical Findings: A clinical breast exam by your physician is recommended on an annual basis and results should be correlated with mammographic findings. MG 3D Screening Mammo W/Cad Bilateral CC and MLO view(s) were taken. Prior study comparison: August 04, 2020, bilateral MG 3d screening mammo w/cad. May 08, 2019, left breast MG 3d diag mammo w/cad LT. There are scattered fibroglandular densities. No significant changes when compared with prior studies. ASSESSMENT: Benign, BI-RAD 2 RECOMMENDATION: Routine screening mammogram of both breasts in 1 year.
== END | disposition home or self-care (01) ==
LOC: RADMAMWWP 14:12
PROVIDERS: ATTEND Family Medicine
DX: Z12.31 Encounter for screening mammogram for malignant neoplasm of breast (principal); Z80.3 Family history of malignant neoplasm of breast; Z78.0 Asymptomatic menopausal state
CPT/HCPCS: 77063; 77067

== ENCOUNTER 2021-11-10 07:13 | Day surgery (SDC) | payer MEDICARE ==
[2021-11-09 09:50] VITALS: BMI 29.7
[~2021-11-10 07:13] MED LIST changes: +LIDOCAINE 1% (10MG/ML) FOR IV START INTRADERMA PRN; -LIDOCAINE 1% 20 ML VIAL (10MG/ML) FOR IV START INTRADERMA PRN
[2021-11-10 07:39] VITALS: TEMP 97
[2021-11-10 07:55] LABS: Glucose,Whole Blood 86 mg/dL (75-99)
[2021-11-10] MEDS ORDERED: LIDOCAINE 1% INJ 10MG/ML (20 ML MDV) ONE (08:47)
[2021-11-10] MEDS ORDERED: PROPOFOL 10 MG/ML 20 ML VIAL IV ONE (08:47)
--- NOTE | 2021-11-10 09:09 | P.PCN ---
Date of Procedure: 11/10/21 Procedure(s) Performed: BRIEF HISTORY: Patient is a 71-year-old pleasant white female scheduled for an elective colonoscopy as a part of screening for colon cancer and family history of colon cancer. Her mother was diagnosed with colon cancer at age 60. PROCEDURE PERFORMED: Colonoscopy. PREOPERATIVE DIAGNOSIS: Screening for colon cancer and family history of colon cancer. IV sedation per Anesthesia. PROCEDURE: After informed consent was obtained, the patient, was brought into the endoscopy unit. IV sedation was administered by Anesthesia under continuous monitoring. Digital rectal examination was normal. Initially the Olympus CF-160 flexible video colonoscope was then inserted in the rectum, gradually advanced into the cecum without any difficulty. Careful examination was performed as the scope was gradually being withdrawn. Ileocecal valve and the appendiceal orifice were visualized and appeared normal. Prep was excellent. Mucosa of the cecum, ascending colon, transverse colon, descending colon, sigmoid colon, and rectum appeared normal. Sigmoid diverticulosis. Retroflexion was performed in the rectum and no lesions were seen. The patient tolerated the procedure well. IMPRESSION: Normal-appearing colon from rectum to cecum with no evidence of colorectal neoplasia Scattered sigmoid diverticulosis. RECOMMENDATIONS: Findings of this examination were discussed with the patient as well as her family. She was advised to have a repeat screening colonoscopy in 5 years because of the family history of colon cancer.
[2021-11-10 09:21] VITALS: RESP 16
[2021-11-10 09:38] VITALS: BP 145/80; PULSE 65
== END 2021-11-10 10:08 | disposition home or self-care (01) ==
LOC: ORWHC2ENDO 07:13
PROVIDERS: ATTEND Internal Medicine Gastroenterology
DX: Z12.11 Encounter for screening for malignant neoplasm of colon (principal); Z80.0 Family history of malignant neoplasm of digestive organs; K57.30 Diverticulosis of large intestine without perforation or abscess without bleeding
CPT/HCPCS: 45378; J2001; J2704

== ENCOUNTER → 2022-03-08 | Outpatient (CLI) | payer MEDICARE ==
[2022-03-08 17:57] LABS: Anion Gap 11.3 mmol/L (10.00-18.00); BUN/Creat Ratio 25.37 Ratio (12.00-20.00); C Reactive Protein 0.5 mg/dL (0.00-0.80); Carbon Dioxide 27.4 mmol/L (20.0-27.5); Non-African American GFR(CKD) 67.3 (60.0-200.0); Potassium 4.4 mmol/L (3.5-5.5)
[2022-03-08 18:01] LABS: Basophils # (A) 0.05 X 10*3/uL (0.00-0.10); Basophils % (A) 0.7 %; Eosinophils # (A) 0.17 X 10*3/uL (0.04-0.35); Eosinophils % (A) 2.5 %; HGB 12.5 g/dL (12.0-15.0); Immature Grans, Automated 0.4 %; Lymphocytes # (A) 1.89 X 10*3/uL (0.90-5.00); Lymphocytes % (A) 27.8 %; MCHC 29.8 g/dL (32.0-37.0); MCV 87.5 fL (80.0-97.0); Mean Platelet Volume 11.7 fL (9.5-12.2); Monocytes # (A) 0.55 X 10*3/uL (0.20-1.00); Monocytes % (A) 8.1 %; NRBC Per 100 WBC 0 /100 WBCS (0.0-0.0); Neutrophils % (A) 60.5 %; Platelet Count 235 X 10*3/uL (140-440); RDW 14.6 % (11.5-14.5); WBC 6.79 X 10*3/uL (4.50-10.00)
[2022-03-08 19:03] LABS: INR 0.92 (0.90-1.11); Prothrombin Time 10.4 sec (9.9-11.9)
[2022-03-08 19:31] LABS: Erythrocyte Sedimentation Rate 19 mm/Hr (0-30)
== END | disposition home or self-care (01) ==
LOC: LABWHC1 10:46
PROVIDERS: ATTEND Orthopaedic Surgery Adult Reconstructive Orthopaedic Surgery
DX: Z01.89 Encounter for other specified special examinations (principal); E78.2 Mixed hyperlipidemia; M25.561 Pain in right knee
CPT/HCPCS: 36415; 80048; 83036; 84450; 84460; 85025; 85610; 85652; 86140; 87070

== ENCOUNTER → 2022-03-09 | Outpatient (CLI) | payer MEDICARE ==
[2022-03-09 14:55] LABS: ALT 17 U/L (8-44); AST 31 U/L (13-35); Chol/HDL Ratio 4.01 Ratio; LDL Cholesterol,Calculated 99.9 mg/dL (0.0-131.0)
== END | disposition home or self-care (01) ==
LOC: LABWHC1 09:45
PROVIDERS: ATTEND Internal Medicine Interventional Cardiology
DX: E78.2 Mixed hyperlipidemia (principal)
CPT/HCPCS: 36415; 80061; 84450; 84460

== ENCOUNTER → 2022-03-14 | Outpatient (CLI) | payer MEDICARE ==
--- NOTE | 2022-03-14 20:16 | NM ---
EXAMINATION TYPE: NM bone 3 phase DATE OF EXAM: 03/14/2022 COMPARISON: NONE HISTORY: Right knee pain Triple phase bone scintigraphy was performed following the injection of 24.7 mCi Tc 99m MDP. Immedia te images and 3 hours post injection images acquired. FINDINGS: Blood flow: Blood flow subtle increased around the right knee compared to the left. Right knee prosth esis is evident. Blood pool: There is increased radiotracer accumulation adjacent to the right knee prosthesis on bloo d flow images. Static images: There is increased radiotracer accumulation adjacent to the prosthesis within the righ t knee. Mild uptake is evident within the left knee which may be degenerative in nature. Whole body imaging is performed there is some focal radiotracer accumulation within the left metatars al region. Correlate for degenerative change. There is increased radiotracer accumulation in the region of T9-10 pedicles. Additional workup for po ssible metastatic disease is recommended. There is uptake within the posterior right mid to lower cervical spine more likely degenerative in na ture. Diminished but similar uptake is present in the cervical thoracic junction on the left posterio r. IMPRESSION: 1. Increased uptake surrounding the right knee prosthesis on all 3 phases could be suggestive for inf ection. Correlate with symptoms. 2. Other some focal uptake within lower thoracic pedicle regions, metastatic disease is not excluded. 3. Uptake within the cervical spine and within the metatarsal regions more so on the left more likely is degenerative in nature. Consider plain film correlation.
== END | disposition home or self-care (01) ==
LOC: RADNMMAIN 07:11
PROVIDERS: ATTEND Orthopaedic Surgery Adult Reconstructive Orthopaedic Surgery
DX: M25.561 Pain in right knee (principal)
CPT/HCPCS: 78315; A9503

== ENCOUNTER → 2022-03-19 | Outpatient (CLI) | payer MEDICARE ==
--- NOTE | 2022-03-20 10:11 | NM ---
EXAMINATION TYPE: NM WBC limited DATE OF EXAM: 03/19/2022 COMPARISON: 3 phase bone scan 03/14/2022 HISTORY: Right knee pain Delayed whole-body scanning was performed following the injection of 21.9 mCi Ceretec labeled WBC. I mages were acquired post injection. FINDINGS: Increased signal is within the medullary femurs bilaterally. Increased uptake is within the lateral m etaphyseal right tibia adjacent to the prosthesis. COMPARISON: The area of uptake on the white blood cell scan and lateral metaphyseal tibia appears to correlate with the focus of radiotracer 3 phase bone scan. This area is more suspicious for infection . IMPRESSION: 1. Uptake on the white blood cell scan in the lateral metaphyseal tibia appears to correlate with 3 p hase bone scan suggesting infection.
== END | disposition home or self-care (01) ==
LOC: RADNMMAIN 06:58
PROVIDERS: ATTEND Orthopaedic Surgery Adult Reconstructive Orthopaedic Surgery
DX: M25.561 Pain in right knee (principal)
CPT/HCPCS: 78300; A9569

== ENCOUNTER → 2022-05-29 | Outpatient (CLI) | payer MEDICARE ==
--- NOTE | 2022-05-30 08:55 | XR ---
EXAMINATION TYPE: XR thoracic spine 3 views complete DATE OF EXAM: 05/29/2022 Comparison: None Clinical History: 72-year-old female abnormal T3 uptake test, R89.1 ABNORMAL LEVEL OF HORMONES IN SPE CIMENS FROM Findings: Degenerative endplate sclerosis T9-T10 and T10-T11 with corresponding facet arthropathy. Mild degener ative disc disease midthoracic spine. Posterior fusion hardware extending from T12 down beyond the fi eld-of-view. There is a fixed grade 1 anterolisthesis noted at T12-L1. Vertebral body heights are pre served and remaining alignment is maintained. 12 are very thoracic vertebral bodies. Impression: 1. Posterior fusion hardware extending from T12 down beyond the [id number]. Grade 1 anterolisthesi s T12-L1. 2. Moderate to advanced degenerative disc disease T9-T11 levels. Mild degenerative disc disease midth oracic spine. 3. No vertebral compression collapse seen.
== END | disposition home or self-care (01) ==
LOC: RADXRMAIN 15:06
PROVIDERS: ATTEND Family Medicine
DX: R89.1 Abnormal level of hormones in specimens from other organs, systems and tissues (principal)
CPT/HCPCS: 72072

== ENCOUNTER → 2022-11-13 | Outpatient (CLI) | payer MEDICARE ==
--- NOTE | 2022-11-15 08:02 | MM ---
Reason for Exam: Screening (asymptomatic). Last screening mammogram was performed 12 month(s) ago. Patient History: Menarche at age 15. First Full-Term at age 17. Postmenopausal. Other cancer. Mother had breast cancer, age 50. Risk Values: Johanny 5 year model risk: 3.0%. Prior Study Comparison: 05/08/2019 Left Diagnostic Mammogram, [facility]. 08/04/2020 Bilateral Screening Mammogram, [facility]. 10/20/2021 Bilateral Screening Mammogram, [facility]. Tissue Density: There are scattered fibroglandular densities. Findings: Analyzed By CAD. Pattern appears symmetrical and stable. Benign vascular calcifications present. No suspicious groups of microcalcifications, spiculated or lobular masses, architectural distortion or other secondary signs of malignancy are mammographically apparent. Overall Assessment: Benign, BI-RAD 2 Management: Screening Mammogram of both breasts in 1 year. A negative mammogram report should not preclude additional follow up of suspicious palpable abnormalities. Patient should continue monthly self breast exam. A clinical breast exam by your physician is recommended on an annual basis and results should be correlated with mammographic findings. Electronically signed and approved by: Vasquez Huynh D.O. Radiologis
== END | disposition home or self-care (01) ==
LOC: RADMAMWWP 13:30
PROVIDERS: ATTEND Family Medicine
DX: Z12.31 Encounter for screening mammogram for malignant neoplasm of breast (principal); Z78.0 Asymptomatic menopausal state; Z80.3 Family history of malignant neoplasm of breast
CPT/HCPCS: 77063; 77067

== ENCOUNTER 2022-12-06 22:17 | Emergency (ER) | payer MEDICARE ==
[2022-12-06 22:21] VITALS: RESP 18
[2022-12-06 23:31] LABS: Basophils % (A) 1 %; Eosinophils # (A) 0.2 k/uL (0-0.7); Eosinophils % (A) 3 %; HGB 11.6 gm/dL (11.4-16.0); Lymphocytes # (A) 1.8 k/uL (1.0-4.8); Lymphocytes % (A) 32 %; MCH 28.5 pg (25.0-35.0); MCHC 33.1 g/dL (31.0-37.0); MCV 86.2 fL (80.0-100.0); Monocytes # (A) 0.3 k/uL (0-1.0); Monocytes % (A) 5 %; Neutrophils # (A) 3.2 k/uL (1.3-7.7); Neutrophils % (A) 58 %; Platelet Count 200 k/uL (150-450); RBC 4.06 m/uL (3.80-5.40); RDW 14.6 % (11.5-15.5); WBC 5.6 k/uL (3.8-10.6)
[2022-12-06 23:33] LABS: Appearance,Urine Clear (Clear); Bacteria,Urine Many /hpf; Bilirubin,Urine Negative (Negative); Blood,Urine Negative (Negative); Color,Urine Light Yellow; Glucose,Urine (UA) Negative (Negative); Ketones,Urine Negative (Negative); Leukocyte Esterase,Urine Moderate (Negative); Mucus,Urine Rare /hpf; Nitrite,Urine Positive (Negative); Protein,Urine Negative (Negative); RBC,Urine 2 /hpf (0-5); Specific Gravity,Urine 1.017 (1.001-1.035); Urobilinogen,Urine <2.0 mg/dL (<2.0); WBC,Urine 58 /hpf (0-5)
[2022-12-06 23:50] LABS: Albumin 2.9 g/dL (3.5-5.0); Calcium 8.9 mg/dL (8.4-10.2); Potassium 3.7 mmol/L (3.5-5.1); Total Bilirubin 0.3 mg/dL (0.2-1.3); Total Protein 6.7 g/dL (6.3-8.2)
[2022-12-07] MEDS ORDERED: ONDANSETRON 4 MG/2 ML VIAL IVP STA (00:26)
[2022-12-07] MEDS ORDERED: SODIUM CHLORIDE 0.9% 1,000 ML IV STA (00:26)
[2022-12-07] MEDS ORDERED: MORPHINE SULFATE 4 MG/ML SYRINGE IVP STA ×2 (00:26→03:03)
--- NOTE | 2022-12-07 02:06 | ED ---
General Adult HPI - General Chief complaint: Abdominal Pain Stated complaint: Possible Kidney Stone Time Seen by Provider: 12/07/22 00:11 Source: patient, RN notes reviewed, old records reviewed Mode of arrival: ambulatory Limitations: no limitations - History of Present Illness Initial comments: Patient is a 72-year-old female with past medical history remarkable for hypertension, seizure disorder, multiple back surgeries with chronic back pain who presents with [facility] complaining of left-sided flank pain. Was diagnosed yesterday with a UTI, and then began having left flank pain. Has only taken 2 doses of her Bactrim. No history of kidney stones. Was due to follow up with urology. States the pain is constant in the left lower back and left flank. Some mild radiation possibly towards the groin. Denies any chest pain or shortness breath. Denies any nausea or vomiting. Denies any abdominal pain otherwise. Has no constipation or diarrhea. Denies any fevers. Presents for evaluation as she is concerned she may have a kidney stone. She is due to follow up with urology next month, however with the newer pain did not believe she could wait. - Related Data Home Medications Medication Instructions Recorded Confirmed Levothyroxine Sodium [Synthroid] 50 mcg PO DAILY 03/06/14 08/24/22 Lisinopril-Hctz 20-12.5 mg 1 tab PO DAILY 03/06/14 08/24/22 [Zestoretic 20-12.5] HYDROcodone/APAP 10-325MG [Muddy 1 tab PO DIRECTED PRN 11/09/21 08/24/22 10-325] Ibuprofen [Motrin] 800 mg PO DAILY PRN 11/09/21 08/24/22 L.acidoph,Paracasei, B.lactis 1 each PO DAILY 11/09/21 08/24/22 [Probiotic] Magnesium 250 mg PO DAILY 11/09/21 08/24/22 Multivit with Calcium,Iron,Min 1 each PO DAILY 11/09/21 08/24/22 [Women's Multivitamin] Prebiotic 1 dose PO DAILY 11/09/21 08/24/22 Vitamin C/Biotin [Hair, Skin and 1 tab PO DAILY 11/09/21 08/24/22 Nails Chew] Allergies Allergy/AdvReac Type Severity Reaction Status Date / Time No Known Allergies Allergy Verified 12/06/22 22:21 Review of Systems ROS Statement: Those systems with pertinent positive or pertinent negative responses have been documented in the HPI. Review of Systems: CONST: Denies fever EYES: Denies blurry vision ENT: Denies nasal congestion C/V: Denies Chest pain RESP: Denies shortness of breath GI: Endorses abdominal pain : Denies dysuria SKIN: Denies rash. MSK: Denies joint pain. NEURO: Denies headache ROS Other: All systems not noted in ROS Statement are negative. Past Medical History Past Medical History: Cancer, CVA/TIA, Hyperlipidemia, Hypertension, Osteoarthritis (OA), Seizure Disorder, Thyroid Disorder Additional Past Medical History / Comment(s): seizure 2 yrs ago X1 AFTER FALL, STATES CLOSED HEAD INJURY,RANJIT'S, STATES WAS TOLD HAD TIA FROM TESTING, BUT PATIENT UNAWARE WHEN, hx skin cancer face, dr discontinued cholesterol meds 1 week ago.had rt shoulder steroid shot, occ vertigo, covid 09/2020, History of Any Multi-Drug Resistant Organisms: MRSA Date of last positivie culture/infection: 2014 MDRO Source:: right knee Past Surgical History: Back Surgery, Cholecystectomy, Joint Replacement, Orthopedic Surgery, Tonsillectomy Additional Past Surgical History / Comment(s): back surgery x2, abdominoplasty, jsoseline carpal tunnel, rt shoulder rotator cuff sx. left knee "arthroscopy/ clean out", JOSSELINE CATARACT,2 rt knee replacments/revision sx Past Anesthesia/Blood Transfusion Reactions: No Reported Reaction Past Psychological History: No Psychological Hx Reported Smoking Status: Former smoker Past Alcohol Use History: None Reported Past Drug Use History: None Reported - Past Family History Mother Family Medical History: CVA/TIA General Exam - General Exam Comments Initial Comments: General: Appears in mild distress secondary to abdominal discomfort, left flank discomfort. HEAD: Normal with no signs of head trauma. EYES: PERRLA, EOMI, conjunctiva normal, no discharge. ENT: Hearing grossly intact, normal oropharynx. RESPIRATORY: Clear breath sounds bilaterally. No wheezes, rales, or rhonchi. C/V: Regular rate and rhythm. S1 and S2 auscultated, no edema, peripheral pulses 2+ and intact throughout ABD: Abdomen is soft, nondistended. Mildly tender to palpation of the left flank. No CVA tenderness to percussion. No guarding. No rebound tenderness. No peritoneal signs. No lower abdominal pain palpated. EXT: Normal range of motion, no obvious deformity SKIN: No rashes or lesions observed on exposed skin. NEURO: Alert and oriented 4. Limitations: no limitations Course Vital Signs 12/06/22 12/07/22 22:19 04:19 Temperature 98.0 F 97.8 F Pulse Rate 73 55 L Respiratory 18 18 Rate Blood Pressure 181/97 152/73 O2 Sat by Pulse 99 100 Oximetry Medical Decision Making - Medical Decision Making Was pt. sent in by a medical professional or institution (, PA, MANAGER POST, urgent care, hospital, or fci...) When possible be specific @ -No Did you speak to anyone other than the patient for history (EMS, parent, family, police, friend...)? What history was obtained from this source @ -No Did you review nursing and triage notes (agree or disagree)? Why? @ -I reviewed and agree with nursing and triage notes Were old charts reviewed (outside hosp., previous admission, EMS record, old EKG, old radiological studies, urgent care reports/EKG's, fci records)? Report findings @ -No old charts were reviewed Differential Diagnosis (chest pain, altered mental status, abdominal pain women, abdominal pain men, vaginal bleeding, weakness, fever, dyspnea, syncope, headache, dizziness, GI bleed, back pain, seizure, CVA, palpatations, mental health, musculoskeletal)? @ -Differential Abdominal Pain Women: Appendicitis, Cholecystitis, diverticulosis, ischemic bowel, pancreatitis, hepatitis, UTI, gastroenteritis, AAA, incarcerated hernia, bowel obstruction, constipation, inflammatory bowel, hepatitis, peptic ulcer disease, splenic infarction, perforated viscus, vulvitis, ovarian torsion, PID, kidney stone, placenta abruption, this is not meant to be an all-inclusive list EKG interpreted by me (3pts min.). @ -None done X-rays interpreted by me (1pt min.). @ -None done CT interpreted by me (1pt min.). @ -CT of the abdomen and pelvis revealed no evidence of acute intra-abdominal process that is obvious. U/S interpreted by me (1pt. min.). @ -Kidney and bladder ultrasound returned with no evidence of kidney stone. No evidence of hydronephrosis. What testing was considered but not performed or refused? (CT, X-rays, U/S, labs)? Why? @ -None What meds were considered but not given or refused? Why? @ -None Did you discuss the management of the patient with other professionals (professionals i.e. , LUZ, MANAGER POST, lab, RT, psych nurse, social work professor, supervisor opening and picking, teacher, information assurance officer, hospice case manager)? Give summary @ -No Was smoking cessation discussed for >3mins.? @ -No Was critical care preformed (if so, how long)? @ -No Were there social determinants of health that impacted care today? How? (Homelessness, low income, unemployed, alcoholism, drug addiction, transp ortation, low edu. Level, literacy, decrease access to med. care, nursing home, rehab)? @ -No Was there de-escalation of care discussed even if they declined (Discuss DNR or withdrawal of care, Hospice)? DNR status @ -No What co-morbidities impacted this encounter? (DM, HTN, Smoking, COPD, CAD, Cancer, CVA, ARF, Chemo, Hep., AIDS, mental health diagnosis, sleep apnea, morbid obesity)? @ -Chronic back pain Was patient admitted / discharged? Hospital course, mention meds given and route, prescriptions, significant lab abnormalities, going to OR and other pertinent info. @ -Based on the patient's presentation and physical exam, she appears to have a UTI which was already diagnosed but there is concern for possible left kidney stone considering left flank and back pain. Workup was started in triage and remarkable for a urine that does show a UTI. The remainder of the labs are within acceptable limits. No blood in the urine. Patient has only been on antibiotics for 2 doses total. I did discuss with her will take time for Anaprox to improved but she is complaining of worsening abdominal pain. I did recommend that we obtain a CT abdomen and pelvis as well as ultrasound of the renals and bladder. She was in agreement with this plan. She'll be symptomatic ally treated with IV fluids, Zofran, morphine. Vital signs are within acceptable limits. Patient's pain did improve. There is a long delay in obtaining imaging results, as it is the middle the night and we are waiting for stat rad through the images. As the patient's blood work is unremarkable and she is asymptomatic at this time, did offer her to be discharged to the stomach and call her with the results. She was in agreement this plan. Did recommend that she continue Bactrim use. I did contact the patient with results and she expressed understanding. She will continue Bactrim use. I instructed the patient to follow up with their PCP in the next 1-3 days. I explained that the patient should return to the emergency department if they experience any worsening symptoms. Strict return precautions were discussed with the patient. The patient expressed understanding of these instructions. I answered all questions that the patient had. The patient was discharged home in good condition with their prescriptions and follow up information. Undiagnosed new problem with uncertain prognosis? @ -No Drug Therapy requiring intensive monitoring for toxicity (Heparin, Nitro, Insulin, Cardizem)? @ -No Were any procedures done? @ -No Diagnosis/symptom? @ -UTI Acute, or Chronic, or Acute on Chronic? @ -Acute Uncomplicated (without systemic symptoms) or Complicated (systemic symptoms)? @ -Complicated Side effects of treatment? @ -none Exacerbation, Progression, or Severe Exacerbation] @ -no Poses a threat to life or bodily function? @ -no Diagnosis/symptom? @ -Abdominal pain of unknown etiology, likely related to UTI versus chronic pain Acute, or Chronic, or Acute on Chronic? @ -Acute Uncomplicated (without systemic symptoms) or Complicated (systemic symptoms)? @ -Uncomplicated Side effects of treatment? @ -none Exacerbation, Progression, or Severe Exacerbation] @ -no Poses a threat to life or bodily function? @ -no - Lab Data Result diagrams: 12/06/22 22:32 12/06/22 22:32 Lab Results 12/06/22 12/06/22 12/06/22 Range/Units 22:32 22:32 22:51 WBC 5.6 (3.8-10.6) k/uL RBC 4.06 (3.80-5.40) m/uL Hgb 11.6 (11.4-16.0) gm/dL Hct 35.0 (34.0-46.0) % MCV 86.2 (80.0-100.0) fL MCH 28.5 (25.0-35.0) pg MCHC 33.1 (31.0-37.0) g/dL RDW 14.6 (11.5-15.5) % Plt Count 200 (150-450) k/uL MPV 8.0 Neutrophils % 58 % Lymphocytes % 32 % Monocytes % 5 % Eosinophils % 3 % Basophils % 1 % Neutrophils # 3.2 (1.3-7.7) k/uL Lymphocytes # 1.8 (1.0-4.8) k/uL Monocytes # 0.3 (0-1.0) k/uL Eosinophils # 0.2 (0-0.7) k/uL Basophils # 0.0 (0-0.2) k/uL Sodium 143 (137-145) mmol/L Potassium 3.7 (3.5-5.1) mmol/L Chloride 107 (98-107) mmol/L Carbon Dioxide 29 (22-30) mmol/L Anion Gap 7 mmol/L BUN 19 H (7-17) mg/dL Creatinine 0.80 (0.52-1.04) mg/dL Est GFR (CKD-EPI)AfAm 85 (>60 ml/min/1.73 sqM) Est GFR (CKD-EPI)NonAf 74 (>60 ml/min/1.73 sqM) Glucose 120 H (74-99) mg/dL Calcium 8.9 (8.4-10.2) mg/dL Total Bilirubin 0.3 (0.2-1.3) mg/dL AST 24 (14-36) U/L ALT 20 (4-34) U/L Alkaline Phosphatase 82 (38-126) U/L Total Protein 6.7 (6.3-8.2) g/dL Albumin 2.9 L (3.5-5.0) g/dL Urine Color Light Yellow Urine Appearance Clear (Clear) Urine pH 7.0 (5.0-8.0) Ur Specific [place] 1.017 (1.001-1.035) Urine Protein Negative (Negative) Urine Glucose (UA) Negative (Negative) Urine Ketones Negative (Negative) Urine Blood Negative (Negative) Urine Nitrite Positive H (Negative) Urine Bilirubin Negative (Negative) Urine Urobilinogen <2.0 (<2.0) mg/dL Ur Leukocyte Esterase Moderate H (Negative) Urine RBC 2 (0-5) /hpf Urine WBC 58 H (0-5) /hpf Urine Bacteria Many H (None) /hpf Urine Mucus Rare H (None) /hpf Disposition Clinical Impression: UTI (urinary tract infection), Abdominal pain of unknown etiology Disposition: HOME SELF-CARE Condition: Good Instructions (If sedation given, give patient instructions): Urinary Tract Infection in Women (DC), Abdominal Pain (ED) Is patient prescribed a controlled substance at d/c from ED?: No Referrals: Allan Coffey DO [Primary Care Provider] - 1-2 days Time of Disposition: 04:15
[2022-12-07 04:20] VITALS: BP 152/73; PULSE 55; TEMP 97.8
--- NOTE | 2022-12-07 05:20 | US ---
EXAM: US Retroperitoneal Limited, Renal CLINICAL HISTORY: ITS.REASON US Reason: left flank pain TECHNIQUE: Real-time limited ultrasound of the retroperitoneum with image documentation. COMPARISON: No relevant prior studies available. FINDINGS: Right kidney: Measures up to 10.5 cm in length. No stones. No solid mass. No hydronephrosis. Left kidney: Measures up to 10.7 cm in length. No stones. No solid mass. No hydronephrosis. Bladder: Bilateral ureteral jets visualized. No significant bladder wall thickening. IMPRESSION: Normal retroperitoneal ultrasound.
--- NOTE | 2022-12-07 06:04 | CT ---
EXAM: CT Abdomen and Pelvis With Intravenous Contrast CLINICAL HISTORY: ITS.REASON CT Reason: abd pain, left flank. eval for kidney stone/pyelo TECHNIQUE: Axial computed tomography images of the abdomen and pelvis with intravenous contrast. CTDI is 27.2 mGy and DLP is 1301 mGy-cm. This CT exam was performed using one or more of the following dose reduction techniques: automated exposure control, adjustment of the mA and/or kV according to patient size, and/or use of iterative reconstruction technique. COMPARISON: No relevant prior studies available. FINDINGS: Lung bases: Unremarkable. No mass. No consolidation. ABDOMEN: Liver: Unremarkable. No mass. Gallbladder and bile ducts: Status post cholecystectomy. No ductal dilation. Pancreas: Unremarkable. No mass. No ductal dilation. Spleen: Unremarkable. No splenomegaly. Adrenals: Unremarkable. No mass. Kidneys and ureters: Unremarkable. No solid mass. No hydronephrosis. Stomach and bowel: Unremarkable. No obstruction. No mucosal thickening. PELVIS: Appendix: No findings to suggest acute appendicitis. Bladder: Unremarkable. No mass. Reproductive: Unremarkable as visualized. ABDOMEN and PELVIS: Intraperitoneal space: Unremarkable. No free air. No significant fluid collection. Bones/joints: No acute fracture. No dislocation. Postsurgical change and posterior spine decompression with posterior spinal fusion hardware throughout the lower thoracic and lumbar spine. Soft tissues: Unremarkable. Vasculature: Unremarkable. No abdominal aortic aneurysm. Lymph nodes: Unremarkable. No enlarged lymph nodes. IMPRESSION: 1. No acute intra-abdominal process. 2. No obstructing urinary stones or hydronephrosis. No evidence of pyelonephritis.
== END 2022-12-07 04:36 | disposition home or self-care (01) ==
LOC: EC 22:17
DX: N39.0 Urinary tract infection, site not specified (principal); I10 Essential (primary) hypertension; E07.9 Disorder of thyroid, unspecified; M19.90 Unspecified osteoarthritis, unspecified site; Z79.890 Hormone replacement therapy; Z79.899 Other long term (current) drug therapy; Z87.891 Personal history of nicotine dependence; Z86.73 Personal history of transient ischemic attack (TIA), and cerebral infarction without residual deficits; Z86.16 Personal history of COVID-19; Z90.49 Acquired absence of other specified parts of digestive tract
CPT/HCPCS: 36415; 80053; 85025; 81001; 76770; 74177; 99284; 96374; 96375; 96376; 96361; J2270; J2405; Q9967

== ENCOUNTER → 2022-12-17 | Outpatient (CLI) | payer MEDICARE ==
--- NOTE | 2022-12-18 07:05 | MR ---
EXAMINATION TYPE: MR doc/lsgreer wo con DATE OF EXAM: 12/17/2022 COMPARISON: X-ray thoracic spine May 29, [address] abdomen and pelvis December 07, 2022 HISTORY: Mid back pain, low back pain, history of surgery. TECHNIQUE: Multiplanar, multisequence imaging of the thoracic and lumbar spine are performed without IV contrast. FINDINGS: T-spine: FINDINGS: Localizer shows grade 1 retrolisthesis C6 on C7. There is dextroconvex scoliosis centered m id thoracic spine. Spinal cord shows normal caliber and as it courses the thoracic spine. There is ar tifact from posterior fusion hardware beginning at T12 level. Vertebral body heights are preserved ab ove surgical levels. There is disc space narrowing at T9-T10 and T10-T11 levels with posterior disc h erniations effacing anterior thecal sac at these levels on sagittal image 10. Small osseous hemangiom a anterior T10 vertebra. Heterogeneous Modic type I endplate changes lower thoracic spine. Review of the axial images shows additional significant disc herniation. Artifact degradation at T11- T12 level is noted. IMPRESSION: Postsurgical change beginning at T12 level. Degenerative changes noted T9-T10 through th e T11-T12 level as detailed above. Scoliotic curvature. L-spine: Sagittal images of the lumbar spine show extensive artifact from posterior intrapedicular rods and sc rews running T12-S1 level. Alignment is stable and straightened. Multilevel moderate to advanced disc space narrowing with artifact from metallic disc material noted posteriorly L2-L3 level. Was promine nt spinal canal effacement or stenosis at L1-L2 level due to grade 1 anterolisthesis of L1 on L2 and posterior positioning of superior L2 vertebra which correlates with recent CT. Posterior decompressio n changes redemonstrated. The conus medullaris is difficult to visualize with certainty. The bone ma rrow signal intensity is within normal limits. Axial images are nondiagnostic due to extensive susceptibility artifact. Spinal canal is grossly pres erved. Suboptimal evaluation of the bilateral neural foramina. Paraspinal muscle bulk is maintained. IMPRESSION: Extensive surgical change to the lumbar spine with satisfactory and straightened alignmen t and slight grade 1 anterolisthesis of L1 on L2. Multilevel posterior decompression changes are pres ent.
== END | disposition home or self-care (01) ==
LOC: RADMRIMAIN 21:15
PROVIDERS: ATTEND Family Medicine
DX: M43.16 Spondylolisthesis, lumbar region (principal)
CPT/HCPCS: 72146; 72148

== ENCOUNTER → 2023-11-06 | Outpatient (CLI) | payer MEDICARE ==
[2023-11-06 16:55] LABS: Basophils # (A) 0.03 X 10*3/uL (0.00-0.10); Basophils % (A) 0.5 %; Eosinophils # (A) 0.16 X 10*3/uL (0.04-0.35); Eosinophils % (A) 2.6 %; HCT 37.6 % (37.2-46.3); HGB 11.6 g/dL (12.0-15.0); Lymphocytes # (A) 2.17 X 10*3/uL (0.90-5.00); Lymphocytes % (A) 35.7 %; MCH 26.5 pg (27.0-32.0); MCHC 30.9 g/dL (32.0-37.0); Mean Platelet Volume 11.3 FL (9.5-12.2); Monocytes # (A) 0.52 X 10*3/uL (0.20-1.00); Monocytes % (A) 8.6 %; NRBC Per 100 WBC 0 X 10*3/uL (0.00-0.01); Neutrophils # (A) 3.19 X 10*3/uL (1.80-7.70); Neutrophils % (A) 52.4 %; Platelet Count 206 X 10*3/uL (140-440); RBC 4.37 X 10*6/uL (4.10-5.20); RDW 14.6 % (11.5-14.5); WBC 6.08 X 10*3/uL (4.50-10.00)
[2023-11-06 17:08] LABS: Erythrocyte Sedimentation Rate 9 mm/Hr (0-30)
== END | disposition home or self-care (01) ==
LOC: LABWHC1 13:52
PROVIDERS: ATTEND Physician Assistant Surgical
DX: M25.569 Pain in unspecified knee (principal)
CPT/HCPCS: 36415; 85025; 85652; 86140

== ENCOUNTER → 2023-11-15 | Outpatient (CLI) | payer MEDICARE ==
--- NOTE | 2023-11-18 09:06 | MM ---
Reason for Exam: Screening (asymptomatic). Last screening mammogram was performed 12 month(s) ago. Patient History: Menarche at age 15. First Full-Term at age 17. Postmenopausal. Other cancer. Mother had breast cancer, age 50. Risk Values: Johanny 5 year model risk: 3.0%. NCI Lifetime model risk: 7.3%. Prior Study Comparison: 08/04/2020 Bilateral Screening Mammogram, [facility]. 10/20/2021 Bilateral Screening Mammogram, [facility]. 11/13/2022 Bilateral MG 3D screening mammo w/cad, [facility]. Tissue Density: There are scattered areas of fibroglandular density. Findings: Analyzed By CAD. The pattern is symmetrical. Pattern is stable. Benign vascular calcifications present bilaterally. No significant interval change is evident. No suspicious groups of microcalcifications, spiculated or lobular masses, architectural distortion or other secondary signs of malignancy are mammographically apparent. Overall Assessment: Benign, BI-RAD 2 Management: Screening Mammogram of both breasts in 1 year. A negative mammogram report should not preclude additional follow up of suspicious palpable abnormalities. Patient should continue monthly self breast exam. A clinical breast exam by your physician is recommended on an annual basis and results should be correlated with mammographic findings. Electronically signed and approved by: Vasquez Huynh D.O. Radiologis
== END | disposition home or self-care (01) ==
LOC: RADMAMWWP 12:39
PROVIDERS: ATTEND Family Medicine
DX: Z12.31 Encounter for screening mammogram for malignant neoplasm of breast (principal); Z80.3 Family history of malignant neoplasm of breast; Z78.0 Asymptomatic menopausal state
CPT/HCPCS: 77063; 77067

== ENCOUNTER → 2023-12-04 | Outpatient (CLI) | payer MEDICARE ==
--- NOTE | 2023-12-04 18:54 | NM ---
EXAMINATION TYPE: NM bone 3 phase DATE OF EXAM: 12/04/2023 COMPARISON: 03/14/2022 CLINICAL INDICATION: Female, 73 years old with history of M25.569 PAIN IN UNSPECIFIED KNEE; Triple phase bone scintigraphy was performed following the injection of 25 mCi Tc 99m MDP. Immediate images and 5 hours post injection images acquired. Blood flow, blood pool and static delayed imaging was performed. FINDINGS: Flow: There is slight increased radiotracer on blood flow images in the distal femur right knee emir red to the left. Blood pool: Increased radiotracer is present adjacent to the prosthesis of the distal femur. Milder i ncrease radiotracer is along the tibial component. Delayed static images: There is intense radiotracer along the medial right femoral condyle. IMPRESSION: Increased radiotracer along the distal medial metaphyseal femur on all 3 phases of bone scan. Finding s can be related to loosening of the prosthesis given these findings were present on the comparison 2 022 exam. Infection and fracture could be considered. Plain film correlation is recommended.
== END | disposition home or self-care (01) ==
LOC: RADNMMAIN 11-21 07:15
PROVIDERS: ATTEND Orthopaedic Surgery Adult Reconstructive Orthopaedic Surgery
DX: M25.569 Pain in unspecified knee (principal)
CPT/HCPCS: 78315; A9503

== ENCOUNTER 2024-02-06 17:20 | Emergency (ER) | payer MEDICARE ==
--- NOTE | 2024-02-06 18:36 | ED ---
Wound/Laceration HPI - General Chief Complaint: Wound/Laceration Stated Complaint: L Toe Injury Time Seen by Provider: 02/06/24 17:40 Source: patient, RN notes reviewed Mode of arrival: ambulatory Limitations: no limitations - History of Present Illness Initial Comments: 73-year-old female presenting with laceration on left toe 2 hours ago. States she got her foot caught in a dog fence which cut her toe. She is complaining of numbness and tingling of the toe. She is able to weight-bear with great pain. Last tetanus is unknown.did not hit head or lose consciousness - Related Data Home Medications Medication Instructions Recorded Confirmed Levothyroxine Sodium [Synthroid] 50 mcg PO DAILY 03/06/14 08/24/22 Lisinopril-Hctz 20-12.5 mg 1 tab PO DAILY 03/06/14 08/24/22 [Zestoretic 20-12.5] HYDROcodone/APAP 10-325MG [[place] 1 tab PO DIRECTED PRN 11/09/21 08/24/22 10-325] Ibuprofen [Motrin] 800 mg PO DAILY PRN 11/09/21 08/24/22 L.acidoph,Paracasei, B.lactis 1 each PO DAILY 11/09/21 08/24/22 [Probiotic] Magnesium 250 mg PO DAILY 11/09/21 08/24/22 Multivit with Calcium,Iron,Min 1 each PO DAILY 11/09/21 08/24/22 [Women's Multivitamin] Prebiotic 1 dose PO DAILY 11/09/21 08/24/22 Vitamin C/Biotin [Hair, Skin and 1 tab PO DAILY 11/09/21 08/24/22 Nails Chew] Previous Rx's Medication Instructions Recorded Cephalexin [Keflex] 500 mg PO Q12HR 5 Days #10 cap 02/06/24 Allergies Allergy/AdvReac Type Severity Reaction Status Date / Time No Known Allergies Allergy Verified 02/06/24 17:39 Review of Systems ROS Statement: Those systems with pertinent positive or pertinent negative responses have been documented in the HPI. ROS Other: All systems not noted in ROS Statement are negative. Past Medical History Past Medical History: Cancer, CVA/TIA, Hyperlipidemia, Hypertension, Osteoarthritis (OA), Seizure Disorder, Thyroid Disorder Additional Past Medical History / Comment(s): seizure 2 yrs ago X1 AFTER FALL, STATES CLOSED HEAD INJURY,RANJIT'S, STATES WAS TOLD HAD TIA FROM TESTING, BUT PATIENT UNAWARE WHEN, hx skin cancer face, dr discontinued cholesterol meds 1 week ago.had rt shoulder steroid shot, occ vertigo, covid 09/2020, History of Any Multi-Drug Resistant Organisms: MRSA Date of last positivie culture/infection: 2014 MDRO Source:: right knee Past Surgical History: Back Surgery, Cholecystectomy, Joint Replacement, Orthopedic Surgery, Tonsillectomy Additional Past Surgical History / Comment(s): back surgery x2, abdominoplasty, josseline carpal tunnel, rt shoulder rotator cuff sx. left knee "arthroscopy/ clean out", JOSSELINE CATARACT,2 rt knee replacments/revision sx Past Anesthesia/Blood Transfusion Reactions: No Reported Reaction Past Psychological History: No Psychological Hx Reported Smoking Status: Former smoker Past Alcohol Use History: None Reported Past Drug Use History: None Reported - Past Family History Mother Family Medical History: CVA/TIA General Exam Limitations: no limitations General appearance: alert, in no apparent distress Head exam: Present: atraumatic, normocephalic, normal inspection Eye exam: Present: normal appearance, PERRL, EOMI. Absent: scleral icterus, conjunctival injection, periorbital swelling Left Ankle exam: Present: normal inspection, full ROM. Absent: tenderness, swelling Foot/Toe exam: Present: full ROM, tenderness, laceration. Absent: normal inspection (3 cm laceration present on ventral aspect of metocarpophalangeal hayley nt of 5th digit of left foot) Neurovascular tendon exam: Present: no vascular compromise. Absent: abnormal cap refill, sensory deficit Course Vital Signs 02/06/24 02/06/24 17:35 20:54 Temperature 98.4 F 97.5 F L Pulse Rate 83 68 Respiratory 18 17 Rate Blood Pressure 151/86 181/84 O2 Sat by Pulse 96 98 Oximetry Procedures - Laceration Laceration #1 Consent Obtained: verbal consent Indication: laceration Site: lower extremity Description: irregular Depth: simple, single layer Anesthetic Used: lidocaine 1%, without epi Anesthesia Technique: local infiltration Amount (mls): 3 Pre-repair: wound explored, irrigated extensively, deep structures intact Type of Sutures: nylon Size of Sutures: 4-0 Number of Sutures: 1 Complications: other (Sutures held poorly due to location. 1 suture applied. Skin adhesive was used for remainder of laceration) Patient Tolerated Procedure: well, no complications Additional Comments: Patient is neurovascularly intact status post procedure Medical Decision Making - Medical Decision Making Was pt. sent in by a medical professional or institution ([facility], [employer], urgent care, hospital, or correction...) When possible be specific @ -No Did you speak to anyone other than the patient for history (EMS, parent, family, police, friend...)? What history was obtained from this source @ -No Did you review nursing and triage notes (agree or disagree)? Why? @ -I reviewed and agree with nursing and triage notes Were old charts reviewed (outside hosp., previous admission, EMS record, old EKG, old radiological studies, urgent care reports/EKG's, correction records)? Report findings @ -No old charts were reviewed Differential Diagnosis (chest pain, altered mental status, abdominal pain women, abdominal pain men, vaginal bleeding, weakness, fever, dyspnea, syncope, headache, dizziness, GI bleed, back pain, seizure, CVA, palpatations, mental health, musculoskeletal)? @ -Differential Musculoskeletal Muscular strain, contusion, ligament sprain, fracture, arthritis, septic ar thritis, bursitis, cellulitis, muscle spasm, nerve compression, DVT, arterial occlusion, herpes zoster, electrolyte abnormality, tumor.... This is not meant to be in all inclusive list EKG interpreted by me (3pts min.). @ -None X-rays interpreted by me (1pt min.). @ -X-ray revealed no osseous abnormality of left foot CT interpreted by me (1pt min.). @ -None done U/S interpreted by me (1pt. min.). @ -None done What testing was considered but not performed or refused? (CT, X-rays, U/S, labs)? Why? @ -None What meds were considered but not given or refused? Why? @ -None Did you discuss the management of the patient with other professionals (professionals i.e. [facility], [employer], lab, RT, psych nurse, clinical social work aide, experience specialist, teacher, chief talent officer, caser up)? Give summary @ -No Was smoking cessation discussed for >3mins.? @ -No Was critical care preformed (if so, how long)? @ -No Were there social determinants of health that impacted care today? How? (Homelessness, low income, unemployed, alcoholism, drug addiction, transportation, low edu. Level, literacy, decrease access to med. care, [facility], rehab)? @ -No Was there de-escalation of care discussed even if they declined (Discuss DNR or withdrawal of care, Hospice)? DNR status @ -No What co-morbidities impacted this encounter? (DM, HTN, Smoking, COPD, CAD, Cancer, CVA, ARF, Chemo, Hep., AIDS, mental health diagnosis, sleep apnea, morbid obesity)? @ -None Was patient admitted / discharged? Hospital course, mention meds given and route, prescriptions, significant lab abnormalities, going to OR and other pertinent info. @ -Patient was discharged. Patient was seen and evaluated for left toe laceration. Patient is neurovascularly intact. X-ray revealed no acute osseous abnormality. Tetanus was updated. Wound was irrigated thoroughly. Sutures held poorly. 1 suture placed and skin adhesive applied to remainder of laceration. Patient is neurovascularly intact status post procedure. Prescribed Keflex for antibacterial prophylaxis. Wound care discussed. Follow- up in 7 days for suture removal. Case discussed with my attending Dr. Sniger. Patient discharged in stable condition. Undiagnosed new problem with uncertain prognosis? @ -No Drug Therapy requiring intensive monitoring for toxicity (Heparin, Nitro, Insulin, Cardizem)? @ -No Were any procedures done? @ -No Diagnosis/symptom? @ -Laceration of left fifth digit Acute, or Chronic, or Acute on Chronic? @ -Acute Uncomplicated (without systemic symptoms) or Complicated (systemic symptoms)? @ -Uncomplicated Side effects of treatment? @ -No Exacerbation, Progression, or Severe Exacerbation? @ -No Poses a threat to life or bodily function? How? (Chest pain, [place], OR, pneumonia, PE, COPD, DKA, ARF, appy, cholecystitis, CVA, Diverticulitis, Homicidal, Suicidal, threat to staff... and all critical care pts) @ -No Disposition Clinical Impression: Laceration of toe of left foot Disposition: HOME SELF-CARE Condition: Stable Instructions (If sedation given, give patient instructions): Laceration (ED) Additional Instructions: Follow-up in 7 days for suture removal. Please return to the Emergency Department if symptoms worsen or any other concerns. Prescriptions: Cephalexin [Keflex] 500 mg PO Q12HR 5 Days #10 cap Is patient prescribed a controlled substance at d/c from ED?: No Referrals: Allan Coffey DO [Primary Care Provider] - 1-2 days Time of Disposition: 20:25
--- NOTE | 2024-02-06 19:00 | XR ---
EXAMINATION TYPE: XR foot complete LT DATE OF EXAM: 02/06/2024 COMPARISON: None HISTORY: Left foot laceration fifth toe TECHNIQUE: 3 view left foot FINDINGS: No acute fracture or dislocation is evident. Soft tissues are normal as are present. Planta r calcaneal heel spur is present. No radiopaque foreign body is evident. Follow up exams can be performed 7-10 days acute trauma for continued pain. IMPRESSION: 1. No acute osseous abnormality left foot
[2024-02-06] MEDS: LIDOCAINE 1% INJ 10MG/ML (20 ML MDV) SQ ONE (19:40)
[2024-02-06] MEDS: DIPH,PERTUS(ACELL)TETVAC-LF 0.5 ML VIAL IM ONE (19:40)
[2024-02-06 21:01] VITALS: BP 181/84; PULSE 68; RESP 17; TEMP 97.5
== END 2024-02-06 21:02 | disposition home or self-care (01) ==
LOC: EC 17:20
DX: S91.115A Laceration without foreign body of left lesser toe(s) without damage to nail, initial encounter (principal); Z87.891 Personal history of nicotine dependence; W26.8XXA Contact with other sharp object(s), not elsewhere classified, initial encounter
CPT/HCPCS: 73630; 90715; 99283; 12002; 90471; J2001

== ENCOUNTER → 2024-03-17 | Outpatient (CLI) | payer MEDICARE ==
--- NOTE | 2024-03-17 15:02 | CT ---
EXAMINATION TYPE: CT knee RT wo con DATE OF EXAM: 03/17/2024 COMPARISON: No radiographic correlation available HISTORY: 74-year-old female Z96.651, RT knee pain hx of multiple knee surgeries. TECHNIQUE: Contiguous axial scanning of the right knee without IV contrast. Coronal and sagittal brandy nstructions performed. The contralateral side was included on coronal scan for comparison purposes. 3 -D reconstructions generated on a dedicated independent workstation. CT DLP: 564 mGycm Automated exposure control for dose reduction was used. FINDINGS: Revision hinged and stemmed right total knee arthroplasty. Given the extensive metal artifacts, unabl e to adequately delineate the extensor mechanism. There appears to be a large fluid collection anteri robbie extending to the lower thigh and overlying the patella measuring at least 17 cm craniocaudal by 5.5 cm wide by 2.2 cm thick. This will require further clinical correlation. Given limitations of the extensive metal artifact, there may be periprosthetic lucency up to 3 mm lilia ng the cement bone interface of the femoral stem, refer to coronal image 29 and 30. There is some focal cortical loss measuring 9 mm wide and 1.1 cm craniocaudal anteriorly of the dista l femoral shaft, axial image 35 and sagittal image 56. No periostitis is identified. Underlying left total knee arthroplasty on coronal series without evident lesion. IMPRESSION: 1. EXTENSIVE METAL ARTIFACT LIMITING THE EVALUATION. THERE IS A REVISION, HINGED AND STEMMED RIGHT TO FOREST KNEE ARTHROPLASTY. 2. LARGE ANTERIOR FLUID COLLECTION MEASURING 17.0 X 5.5 X 2.2 CM. THIS APPEARS TO OVERLIE THE PATELLA AND MAY EXTEND INTO THE EXTENSOR MECHANISM. THE EXTENSOR MECHANISM ITSELF IS NOT WELL EVALUATED DUE TO THE EXTENSIVE ARTIFACTS. 3. PERIPROSTHETIC LUCENCY MEASURING UP TO 3 MM ALONG THE CEMENT-BONE INTERFACE OF THE FEMORAL STEM. C ORRELATE WITH ANY AVAILABLE OUTSIDE PRIORS TO ENSURE STABILITY AND EXCLUDE LOOSENING. 4. A FOCAL 9 X 11 MM AREA OF cortical loss involving the anterior margin of the distal femoral shaft. Again, comparison with any available outside prior to assess for stability. Findings may be on a pos tsurgical basis or could reflect infection.
== END | disposition home or self-care (01) ==
LOC: RADCTMAIN 12:52
PROVIDERS: ATTEND Orthopaedic Surgery
DX: Z96.651 Presence of right artificial knee joint (principal)

== ENCOUNTER 2024-11-13 12:23 | Observation (INO) | payer MEDICARE ==
--- NOTE | 2024-11-13 12:43 | ED ---
Dizziness HPI - General Source: patient Mode of arrival: wheelchair Limitations: no limitations <Анна Sepulveda - Last Filed: 11/13/24 12:42> <iMlli Brito - Last Filed: 11/14/24 16:51> - General Chief Complaint: Dizziness Stated Complaint: indigestion, high blood pressure Time Seen by Provider: 11/13/24 12:42 - History of Present Illness Initial Comments: Quick note: 74-year-old female presented the ER for evaluation of dizziness. Patient reports a history of hypertension. For the past week she has experiencing headaches and dizziness. She also reports indigestion x 2 days. (Анна Sepulveda) Patient is a 74 y/o female, hx chronic pain, HTN, presenting today for dizziness and "not feeling right". Recently returned from a month and a half spent in [place]. About one week ago began noticing persistent dizziness, present at both rest and w/ head movements. Endorses intermittent blurred vision. States her head "just does not feel right" and unsteady when she walks. Denies numbness or focal weakness or slurred speech. Endorses associated headache. Also notes intermittent pressure like chest pain that does not appear to occur with any pattern nor is it exacerbated with exertion. Denies [place] or LE swelling or hemoptysis. No recent fevers. States at her pain management office 2 days ago her BP was ~200 systolic. Denies missed dosage of her lisinopril. (Milli Brito) - Related Data Home Medications Medication Instructions Recorded Confirmed Levothyroxine Sodium [Synthroid] 50 mcg PO DAILY 03/06/14 11/13/24 HYDROcodone/APAP 10-325MG [[place] 1 tab PO Q6H PRN 11/09/21 11/13/24 10-325] Ibuprofen [Motrin] 800 mg PO TID PRN 11/09/21 11/13/24 Pantoprazole [Protonix] 40 mg PO DAILY PRN 11/13/24 11/13/24 lisinopriL [Zestril] 10 mg PO DAILY 11/13/24 11/13/24 Allergies Allergy/AdvReac Type Severity Reaction Status Date / Time No Known Allergies Allergy Verified 11/13/24 20:24 Review of Systems ROS Other: All systems not noted in ROS Statement are negative. <Анна Sepulveda - Last Filed: 11/13/24 12:42> ROS Other: All systems not noted in ROS Statement are negative. <Milli Brito - Last Filed: 11/14/24 16:51> ROS Statement: Those systems with pertinent positive or pertinent negative responses have been documented in the HPI. Past Medical History Past Medical History: Cancer, CVA/TIA, Hyperlipidemia, Hypertension, Osteoarthritis (OA), Seizure Disorder, Thyroid Disorder Additional Past Medical History / Comment(s): seizure 2 yrs ago X1 AFTER FALL, STATES CLOSED HEAD INJURY,RANJIT'S, STATES WAS TOLD HAD TIA FROM TESTING, BUT PATIENT UNAWARE WHEN, hx skin cancer face, dr discontinued cholesterol meds 1 week ago.had rt shoulder steroid shot, occ vertigo, covid 09/2020, History of Any Multi-Drug Resistant Organisms: MRSA Date of last positivie culture/infection: 2014 MDRO Source:: right knee Past Surgical History: Back Surgery, Cholecystectomy, Joint Replacement, Orthopedic Surgery, Tonsillectomy Additional Past Surgical History / Comment(s): back surgery x2, abdominoplasty, josseline carpal tunnel, rt shoulder rotator cuff sx. left knee "arthroscopy/ clean out", JOSSELINE CATARACT,2 rt knee replacments/revision sx Past Anesthesia/Blood Transfusion Reactions: No Reported Reaction Past Psychological History: No Psychological Hx Reported Smoking Status: Former smoker Past Alcohol Use History: None Reported Past Drug Use History: None Reported - Past Family History Mother Family Medical History: CVA/TIA <Анна Sepulveda - Last Filed: 11/13/24 12:42> General Exam Limitations: no limitations <Анна Sepulveda - Last Filed: 11/13/24 12:42> <Milli Brito - Last Filed: 11/14/24 16:51> - General Exam Comments Initial Comments: Visual Physical Exam Vital signs reviewed General: Well-appearing, nontoxic, no acute distress. Head: Normocephalic, atraumatic Eyes: PERRLA, EOMI ENT: Airway patent Chest: Nonlabored breathing Skin: No visual rash, normal skin tone Neuro: Alert and oriented 3 Musculoskeletal: No gross abnormalities (Анна Sepulveda) PE: CONSTITUTIONAL: No apparent distress, well appearing SKIN: Warm, dry, no jaundice, hives or petechiae EYES: Pupils are equally round, extraocular movements intact without nystagmus, clear conjunctiva, non-icteric sclera HENT: Normocephalic, atraumatic, moist mucus membranes, oropharynx clear without exudates NECK: , Full range of motion, normal appearance PULMONARY: Clear to auscultation without wheezes, rhonchi, or rales, normal excursion, no accessory muscle use and no stridor CARDIOVASCULAR: Regular rate, rhythm, normal S1 and S2. No appreciated murmurs, rubs or gallops. Strong radial pulses with intact distal perfusion. No lower ex tremity edema GASTROINTESTINAL: Soft, active bowel sounds throughout, non-tender, non- distended, no palpable masses, no rebound or guarding. No hepatosplenomegaly GENITOURINARY: MUSCULOSKELETAL: Extremities have no gross deformity, no edema, redness, or swelling. No calf swelling NEUROLOGIC:_a/o x 3, GCS 15, normal mentation and speech. Moves all extremities x 4 without motor or sensory deficit, cranial nerves: II (visual underwood without defects), III, IV and (extraocular movements are intact, pupils are equal with normal reaction to light), V (intact facial sensation and jaw opening), VII (no facial droop), IX and X (normal palate movement, midline uvula, normal voice), XI (symmetrical shoulder shrug and lateral head rotation against resistance), XII (midline tongue protrusion). Motor strength is 5/5 in all extremities. No abnormal movements. Normal muscle tone. Sensation to light touch is intact bilaterally. No cerebellar signs ([id number], [id number], and rapid alternating movements are normal) PSYCHIATRIC:_normal mood and affect, thought process is clear and linear (Milli Brito) Course <Milli Brito - Last Filed: 11/14/24 16:51> Vital Signs 11/13/24 11/13/24 11/13/24 12:34 17:12 17:51 Temperature 98.0 F Pulse Rate 86 69 Pulse Rate [ Pulse Oximetery ] Respiratory 18 16 Rate Blood Pressure 197/92 194/106 195/96 Blood Pressure [Left Arm] O2 Sat by Pulse 98 100 Oximetry 11/13/24 11/13/24 11/13/24 18:30 19:00 20:23 Temperature Pulse Rate 86 Pulse Rate [ Pulse Oximetery ] Respiratory 18 Rate Blood Pressure 192/83 147/64 158/78 Blood Pressure [Left Arm] O2 Sat by Pulse 96 Oximetry 11/13/24 11/13/24 11/14/24 21:44 23:04 00:45 Temperature Pulse Rate 69 73 63 Pulse Rate [ Pulse Oximetery ] Respiratory 18 18 16 Rate Blood Pressure 144/69 155/87 151/73 Blood Pressure [Left Arm] O2 Sat by Pulse 97 97 96 Oximetry 11/14/24 11/14/24 11/14/24 02:13 06:23 07:24 Temperature Pulse Rate 61 59 L 56 L Pulse Rate [ Pulse Oximetery ] Respiratory 16 18 20 Rate Blood Pressure 142/73 149/74 165/74 Blood Pressure [Left Arm] O2 Sat by Pulse 97 98 97 Oximetry 11/14/24 11/14/24 11/14/24 08:55 09:27 10:00 Temperature Pulse Rate 75 68 76 Pulse Rate [ Pulse Oximetery ] Respiratory 16 16 16 Rate Blood Pressure 180/70 169/88 143/75 Blood Pressure [Left Arm] O2 Sat by Pulse 96 98 98 Oximetry 11/14/24 11/14/24 11/14/24 11:00 12:59 14:04 Temperature Pulse Rate 68 65 68 Pulse Rate [ Pulse Oximetery ] Respiratory 16 16 16 Rate Blood Pressure 153/76 183/89 170/78 Blood Pressure [Left Arm] O2 Sat by Pulse 98 98 98 Oximetry 11/14/24 14:35 Temperature 97.4 F L Pulse Rate Pulse Rate [ 58 L Pulse Oximetery ] Respiratory 16 Rate Blood Pressure Blood Pressure 190/84 [Left Arm] O2 Sat by Pulse 93 L Oximetry - Reevaluation(s) Reevaluation #1: Alerted by RN that pt's BP rechecked and was 203 systolic. Ordered 20 mg IV labetalol. 11/13/24 18:02 (Milli Brito) EKG Findings - EKG Comments: EKG Findings:: Sinus rhythm, rate 63 bpm VT interval 155 ms QT/QTc 369/375 ms, left axis deviation, no ST elevations or depressions though does appear to show signs of LVH <Milli Brito - Last Filed: 11/14/24 16:51> Medical Decision Making <Анна Sepulveda - Last Filed: 11/13/24 12:42> - Lab Data Result diagrams: 11/13/24 13:26 03/28/25 13:26 <Milli Brito - Last Filed: 11/14/24 16:51> - Medical Decision Making I performed the quick note portion of this chart. Electronically signed by Анна Speulveda PA-C (Анна Sepulveda) Was pt. sent in by a medical professional or institution ([facility], PRINTING MACHINIST, urgent care, hospital, or senior living...) When possible be specific @ -No Did you speak to anyone other than the patient for history (EMS, parent, family, police, friend...)? What history was obtained from this source @ -No Did you review nursing and triage notes (agree or disagree)? Why? @ -I reviewed nursing and triage notes Were old charts reviewed (outside hosp., previous admission, EMS record, old EKG, old radiological studies, urgent care reports/EKG's, senior living records)? Report findings @ -Medical records reviewed reviewed results of stress echo performed2017, was a negative stress test and negative dobutamine echo Differential Diagnosis (chest pain, altered mental status, abdominal pain women, abdominal pain men, vaginal bleeding, weakness, fever, dyspnea, syncope, headache, dizziness, GI bleed, back pain, seizure, CVA, palpatations, mental health, musculoskeletal)? Differential Dizziness: Benign paroxysmal positional Vertigo, Meniere's disease, otitis media, acoustic neuroma, vertebrobasilar insufficiency, cerebellar stroke, encephalitis, hypovolemic, arrhythmia, coronary artery syndrome, anemia, this is not meant to be an all-inclusive list EKG interpreted by me (3pts min.). @ -As above X-rays interpreted by me (1pt min.). @I personally reviewed chest x-ray see no evidence of cardiomegaly, pleural effusions or consolidations CT interpreted by me (1pt min.). CT brain, CTA reviewed, I see no evidence of hemorrhage or mass effect on CT brain, I see no evidence of dissection or large vessel occlusion on CTA U/S interpreted by me (1pt. min.). @ -None done What testing was considered but not performed or refused? (CT, X-rays, U/S, labs)? Why? @ -None What meds were considered but not given or refused? Why? @ -Labetalol was considered however ultimately this was canceled when patient was noted to have a heart rate between 58 to 61 bpm Did you discuss the management of the patient with other professionals (professionals i.e. , PA, PRINTING MACHINIST, lab, RT, psych nurse, social media marketing analyst, shear grinder operator, lalo carmona, contracts officer, family independence case manager)? Give summary @ -No Was smoking cessation discussed for >3mins.? @ -No Was critical care preformed (if so, how long)? @ -No Were there social determinants of health that impacted care today? How? (Homelessness, low income, unemployed, alcoholism, drug addiction, transportation, low edu. Level, literacy, decrease access to med. care, residential, rehab)? @ -No Was there de-escalation of care discussed even if they declined (Discuss DNR or withdrawal of care, Hospice)? @ -No What co-morbidities impacted this encounter? (DM, HTN, Smoking, COPD, CAD, Cancer, CVA, ARF, Chemo, Hep., AIDS, mental health diagnosis, sleep apnea, morbid obesity)? Hypertension Was patient admitted / discharged? Hospital course, mention meds given and route, prescriptions, significant lab abnormalities, going to OR and other pertinent info. @ -Admission -patient is a pleasant 74-year-old female history of hypertension presenting for dizziness, headache intermittent chest pain. ATP orders were reviewed, overall reassuring. CT brain showed no acute process. I did add a CTA given description of patient's dizziness being potentially more concerning for central cause as opposed to peripheral etiology. Patient also significantly hypertensive on arrival, ordered 10 mg IV hydralazine and patient's home lisinopril. I discussed with patient her reassuring labs thus far, anticipated admission given her multiple concerning symptoms. Patient agreeable with plan of care. Of note patient did spend a significant amount of time in the waiting room due to ED surge capacity so hypertension was not able to be immediately treated on patient's arrival to the ER. After above interventions BP improved to 147/64. Imaging was negative for acute process. Case was discussed with DOMINIC Bermudez, kindly accepts patient for admission. Undiagnosed new problem with uncertain prognosis? @ -No Drug Therapy requiring intensive monitoring for toxicity (Heparin, Nitro, Insulin, Cardizem)? @ -No Were any procedures done? @ -No Diagnosis/symptom? @Dizziness, hypertensive urgency, chest pain Acute, or Chronic, or Acute on Chronic? Acute Uncomplicated (without systemic symptoms) or Complicated (systemic symptoms)? Complicated Side effects of treatment? @ -No Exacerbation, Progression, or Severe Exacerbation? @ -No Poses a threat to life or bodily function? How? (Chest pain, [place], [place], pneumonia, PE, COPD, DKA, ARF, appy, cholecystitis, CVA, Diverticulitis, Homicidal, Suicidal, threat to staff... and all critical care pts) Potentially if secondary to central cause of dizziness or ACS (Milli Brito) - Lab Data Lab Results 11/13/24 11/13/24 11/13/24 Range/Units 13:26 13:26 13:26 WBC 6.2 (3.8-10.6) k/uL RBC 4.65 (3.80-5.40) m/uL Hgb 13.1 (11.4-16.0) gm/dL Hct 41.4 (34.0-46.0) % MCV 89.1 (80.0-100.0) fL MCH 28.2 (25.0-35.0) pg MCHC 31.7 (31.0-37.0) g/dL RDW 13.4 (11.5-15.5) % Plt Count 201 (150-450) k/uL MPV 7.9 Neutrophils % 68 % Lymphocytes % 22 % Monocytes % 6 % Eosinophils % 2 % Basophils % 0 % Neutrophils # 4.2 (1.3-7.7) k/uL Lymphocytes # 1.4 (1.0-4.8) k/uL Monocytes # 0.3 (0-1.0) k/uL Eosinophils # 0.2 (0-0.7) k/uL Basophils # 0.0 (0-0.2) k/uL Hypochromasia Moderate PT (10.0-12.5) sec INR (<1.2) APTT (22.0-30.0) sec Sodium 140 (137-145) mmol/L Potassium 3.9 (3.5-5.1) mmol/L Chloride 107 (98-107) mmol/L Carbon Dioxide 27 (22-30) mmol/L Anion Gap 6 mmol/L BUN 11 (7-17) mg/dL Creatinine 0.66 (0.52-1.04) mg/dL Est GFR (CKD-EPI)AfAm >90 (>60 ml/min/1.73 sqM) Est GFR (CKD-EPI)NonAf 87 (>60 ml/min/1.73 sqM) Glucose 101 H (74-99) mg/dL Plasma Lactic Acid Zachery (0.7-2.0) mmol/L Calcium 9.4 (8.4-10.2) mg/dL Magnesium 1.9 (1.6-2.3) mg/dL Total Bilirubin 0.7 (0.2-1.3) mg/dL AST 38 H (14-36) U/L ALT 33 (4-34) U/L Alkaline Phosphatase 98 (38-126) U/L Troponin I 0.021 (0.000-0.034) ng/mL Total Protein 7.5 (6.3-8.2) g/dL Albumin 4.6 (3.5-5.0) g/dL Urine Color Urine Appearance (Clear) Urine pH (5.0-8.0) Ur Specific [place] (1.001-1.035) Urine Protein (Negative) Urine Glucose (UA) (Negative) Urine Ketones (Negative) Urine Blood (Negative) Urine Nitrite (Negative) Urine Bilirubin (Negative) Urine Urobilinogen (<2.0) mg/dL Ur Leukocyte Esterase (Negative) Urine RBC (0-5) /hpf Urine WBC (0-5) /hpf Ur Squamous Epith Cells (0-4) /hpf Influenza Type A (PCR) (Not Detectd) Influenza Type B (PCR) (Not Detectd) RSV (PCR) (Not Detectd) SARS-CoV-2 (PCR) (Not Detectd) 11/13/24 11/13/24 11/13/24 Range/Units 13:26 13:26 13:26 WBC (3.8-10.6) k/uL RBC (3.80-5.40) m/uL Hgb (11.4-16.0) gm/dL Hct (34.0-46.0) % MCV (80.0-100.0) fL MCH (25.0-35.0) pg MCHC (31.0-37.0) g/dL RDW (11.5-15.5) % Plt Count (150-450) k/uL MPV Neutrophils % % Lymphocytes % % Monocytes % % Eosinophils % % Basophils % % Neutrophils # (1.3-7.7) k/uL Lymphocytes # (1.0-4.8) k/uL Monocytes # (0-1.0) k/uL Eosinophils # (0-0.7) k/uL Basophils # (0-0.2) k/uL Hypochromasia PT 10.4 (10.0-12.5) sec INR 0.9 (<1.2) APTT 24.1 (22.0-30.0) sec Sodium (137-145) mmol/L Potassium (3.5-5.1) mmol/L Chloride (98-107) mmol/L Carbon Dioxide (22-30) mmol/L Anion Gap mmol/L BUN (7-17) mg/dL Creatinine (0.52-1.04) mg/dL Est GFR (CKD-EPI)AfAm (>60 ml/min/1.73 sqM) Est GFR (CKD-EPI)NonAf (>60 ml/min/1.73 sqM) Glucose (74-99) mg/dL Plasma Lactic Acid Zachery 0.7 (0.7-2.0) mmol/L Calcium (8.4-10.2) mg/dL Magnesium (1.6-2.3) mg/dL Total Bilirubin (0.2-1.3) mg/dL AST (14-36) U/L ALT (4-34) U/L Alkaline Phosphatase (38-126) U/L Troponin I (0.000-0.034) ng/mL Total Protein (6.3-8.2) g/dL Albumin (3.5-5.0) g/dL Urine Color Colorless Urine Appearance Clear (Clear) Urine pH 6.5 (5.0-8.0) Ur Specific [place] 1.004 (1.001-1.035) Urine Protein Negative (Negative) Urine Glucose (UA) Negative (Negative) Urine Ketones Negative (Negative) Urine Blood Negative (Negative) Urine Nitrite Negative (Negative) Urine Bilirubin Negative (Negative) Urine Urobilinogen <2.0 (<2.0) mg/dL Ur Leukocyte Esterase Trace H (Negative) Urine RBC 8 H (0-5) /hpf Urine WBC 3 (0-5) /hpf Ur Squamous Epith Cells 1 (0-4) /hpf Influenza Type A (PCR) (Not Detectd) Influenza Type B (PCR) (Not Detectd) RSV (PCR) (Not Detectd) SARS-CoV-2 (PCR) (Not Detectd) 11/13/24 11/13/24 Range/Units 13:26 17:21 WBC (3.8-10.6) k/uL RBC (3.80-5.40) m/uL Hgb (11.4-16.0) gm/dL Hct (34.0-46.0) % MCV (80.0-100.0) fL MCH (25.0-35.0) pg MCHC (31.0-37.0) g/dL RDW (11.5-15.5) % Plt Count (150-450) k/uL MPV Neutrophils % % Lymphocytes % % Monocytes % % Eosinophils % % Basophils % % Neutrophils # (1.3-7.7) k/uL Lymphocytes # (1.0-4.8) k/uL Monocytes # (0-1.0) k/uL Eosinophils # (0-0.7) k/uL Basophils # (0-0.2) k/uL Hypochromasia PT (10.0-12.5) sec INR (<1.2) APTT (22.0-30.0) sec Sodium (137-145) mmol/L Potassium (3.5-5.1) mmol/L Chloride (98-107) mmol/L Carbon Dioxide (22-30) mmol/L Anion Gap mmol/L BUN (7-17) mg/dL Creatinine (0.52-1.04) mg/dL Est GFR (CKD-EPI)AfAm (>60 ml/min/1.73 sqM) Est GFR (CKD-EPI)NonAf (>60 ml/min/1.73 sqM) Glucose (74-99) mg/dL Plasma Lactic Acid Zachery (0.7-2.0) mmol/L Calcium (8.4-10.2) mg/dL Magnesium 2.0 (1.6-2.3) mg/dL Total Bilirubin (0.2-1.3) mg/dL AST (14-36) U/L ALT (4-34) U/L Alkaline Phosphatase (38-126) U/L Troponin I (0.000-0.034) ng/mL Total Protein (6.3-8.2) g/dL Albumin (3.5-5.0) g/dL Urine Color Urine Appearance (Clear) Urine pH (5.0-8.0) Ur Specific [place] (1.001-1.035) Urine Protein (Negative) Urine Glucose (UA) (Negative) Urine Ketones (Negative) Urine Blood (Negative) Urine Nitrite (Negative) Urine Bilirubin (Negative) Urine Urobilinogen (<2.0) mg/dL Ur Leukocyte Esterase (Negative) Urine RBC (0-5) /hpf Urine WBC (0-5) /hpf Ur Squamous Epith Cells (0-4) /hpf Influenza Type A (PCR) Not Detected (Not Detectd) Influenza Type B (PCR) Not Detected (Not Detectd) RSV (PCR) Not Detected (Not Detectd) SARS-CoV-2 (PCR) Not Detected (Not Detectd) Disposition <Анна Sepulveda - Last Filed: 11/13/24 12:42> <Milli Brito - Last Filed: 11/14/24 16:51> Clinical Impression: Dizziness, Hypertensive urgency Disposition: ADMITTED IP TO THIS HOSP Condition: Stable
[2024-11-13 13:40] LABS: Basophils % (A) 0 %; Eosinophils # (A) 0.2 k/uL (0-0.7); Eosinophils % (A) 2 %; HCT 41.4 % (34.0-46.0); HGB 13.1 gm/dL (11.4-16.0); Hypochromasia Moderate; Lymphocytes # (A) 1.4 k/uL (1.0-4.8); Lymphocytes % (A) 22 %; MCH 28.2 pg (25.0-35.0); MCHC 31.7 g/dL (31.0-37.0); MCV 89.1 fL (80.0-100.0); Mean Platelet Volume 7.9; Monocytes # (A) 0.3 k/uL (0-1.0); Monocytes % (A) 6 %; Neutrophils # (A) 4.2 k/uL (1.3-7.7); Neutrophils % (A) 68 %; Platelet Count 201 k/uL (150-450); RBC 4.65 m/uL (3.80-5.40); RDW 13.4 % (11.5-15.5); WBC 6.2 k/uL (3.8-10.6)
[2024-11-13 13:44] LABS: Appearance,Urine Clear (Clear); Bilirubin,Urine Negative (Negative); Blood,Urine Negative (Negative); Color,Urine Colorless; Glucose,Urine (UA) Negative (Negative); Ketones,Urine Negative (Negative); Leukocyte Esterase,Urine Trace (Negative); Nitrite,Urine Negative (Negative); PH, Urine 6.5 (5.0-8.0); Protein,Urine Negative (Negative); RBC,Urine 8 /hpf (0-5); Specific Gravity,Urine 1.004 (1.001-1.035); Squamous Epithelial Cell,Urine 1 /hpf (0-4); Urobilinogen,Urine <2.0 mg/dL (<2.0); WBC,Urine 3 /hpf (0-5)
[2024-11-13 13:50] LABS: ALT 33 U/L (4-34); AST 38 U/L (14-36); African American GFR (CKD) >90 (>60 ml/min/1.73 sqM); Albumin 4.6 g/dL (3.5-5.0); Alkaline Phosphatase 98 U/L (38-126); Anion Gap 6 mmol/L; Blood Urea Nitrogen 11 mg/dL (7-17); Calcium 9.4 mg/dL (8.4-10.2); Carbon Dioxide 27 mmol/L (22-30); Chloride 107 mmol/L (98-107); Glucose 101 mg/dL (74-99); Magnesium 1.9 mg/dL (1.6-2.3); Non-African American GFR(CKD) 87 (>60 ml/min/1.73 sqM); Potassium 3.9 mmol/L (3.5-5.1); Sodium 140 mmol/L (137-145); Total Bilirubin 0.7 mg/dL (0.2-1.3); Total Protein 7.5 g/dL (6.3-8.2)
--- NOTE | 2024-11-13 13:53 | XR ---
EXAMINATION TYPE: XR chest 2V DATE OF EXAM: 11/13/2024 CLINICAL INDICATION: Female, 74 years old with history of dizzy, TECHNIQUE: Frontal and lateral views of the chest are obtained. COMPARISON: Chest x-ray January 25, 2021 FINDINGS: There is no focal air space opacity, pleural effusion, or pneumothorax seen. The cardiac silhouette size is within normal limits. Surgical change to the lumbar spine is partially imaged. IMPRESSION: No acute cardiopulmonary process. [facility], , 11/13/2024 1:50 PM
[2024-11-13 13:57] LABS: INR 0.9 (<1.2); Partial Thromboplastin Time 24.1 sec (22.0-30.0); Prothrombin Time 10.4 sec (10.0-12.5)
[2024-11-13] MEDS: LISINOPRIL-HCTZ 20-12.5 MG 1 EACH TAB PO STA (17:28)
[2024-11-13 18:07] LABS: Influenza A Not Detected (Not Detectd); Influenza B Not Detected (Not Detectd); RSV Not Detected (Not Detectd)
[2024-11-13] MEDS: LABETALOL SYRINGE 5 MG/ML (4 ML SYR) IVP STA (18:32)
[2024-11-13] MEDS: hydrALAZINE HCL 20 MG/ML 1 ML VIAL IVP STA (18:43)
--- NOTE | 2024-11-13 19:01 | CT ---
EXAMINATION TYPE: CT angio head neck DATE OF EXAM: 11/13/2024 6:19 PM COMPARISON: 05/06/2015.. CLINICAL INDICATION: Female, 74 years old with history of dizziness, new unsteadiness new headaches; [facility], Pt is coming in for complaints of high blood pressure, dizziness, and indigestion x 1 week[address] TECHNIQUE: CT noncontrast head: Axially acquired helical CT angiogram of the head and neck was obtained with contrast. Axial images are supplemented with 3D reconstructions and MIP images which were post-processed at an independent workstation. NASCET criteria used. Contrast used:65ml mL of Isovue 370 with IV Contrast, Oral contrast used: None. CT DLP: 1618.4 mGycm, Automated exposure control for dose reduction was used. FINDINGS: Extra-axial spaces: No abnormal extra-axial fluid collections. Ventricular system: Within normal limits Cerebral parenchyma: No acute intraparenchymal hemorrhage or mass effect. The meyer-white junction is well differentiated. Cerebellum: Unremarkable. Mass effect: No evidence of midline shift. Intracranial vasculature: unremarkable Soft tissues: Normal. Calvarium/osseous structures: No depressed skull fracture. Paranasal sinuses and mastoid air cells: Clear. Visualized orbits: Orbital contents are intact. CTA HEAD: No evidence of acute intracranial hemorrhage, mass effect, or midline shift. The ventricles, sulci, a nd cisterns are unremarkable. Vertebral arteries: The vertebral arteries are patent. Vertebral artery dominance: Codominant Basilar artery: The basilar artery is intact. The basilar artery bifurcation is normal. Internal Carotid arteries: Minimal calcified plaque of the intracranial internal carotid arteries. Th e cervical, petrous, cavernous and supraclinoid segments are normal. MYRA: Patent with no evidence of aneurysm. ACOM: Present without evidence of aneurysm. MCA: Patent with no evidence of aneurysm. SLUBBER TENDER: Patent with no evidence of aneurysm. PCOM: Hypoplastic bilaterally. Dural sinuses: Patent. CTA NECK: Right Carotid System: The common carotid artery and external carotid artery are patent. The carotid bifurcation demonstrate s no evidence of hemodynamically significant stenosis. The remaining portions of the internal carotid artery demonstrate normal size without significant narrowing. Left Carotid System: The common carotid artery and external carotid artery are patent. The carotid bifurcation demonstrate s no evidence of hemodynamically significant stenosis. The remaining portions of the internal carotid artery demonstrate normal size without significant narrowing. Vertebral arteries are patent without evidence hemodynamically significant stenosis. There is a 2-vessel aortic arch. The origins of the great vessels are patent. No evidence of hemodyna mically significant stenosis. IMPRESSION: 1. No evidence of dissection of the cervical internal carotid arteries or vertebral arteries. 2. No any evidence of significant stenosis at the carotid bifurcations. 3. No evidence of intracranial high-grade stenosis or intracranial aneurysm. 4. No acute intracranial process. [facility], , 11/13/2024 6:59 PM
[2024-11-13] MEDS ORDERED: NALOXONE 0.4 MG/ML 1 ML VIAL IV PRN (19:59)
[2024-11-13] MEDS: MORPHINE SULFATE 4 MG/ML SYRINGE IV PRN (20:25)
[2024-11-13] MEDS: SODIUM CHLORIDE 0.9% 1,000 ML IV SCH (20:28)
[2024-11-13] MEDS: FAMOTIDINE 20 MG TAB PO SCH (21:43)
[2024-11-13] MEDS ORDERED: ACETAMINOPHEN TAB 325 MG TAB PO PRN (22:00)
[2024-11-14] MEDS: HYDROcodone/APAP 10-325MG 1 EACH TAB PO PRN (06:26)
[2024-11-14] MEDS: LEVOTHYROXINE 50 MCG TAB PO SCH (06:35)
[2024-11-14] MEDS: traMADol 50 MG TAB PO PRN (07:58)
[2024-11-14] MEDS: ALPRAZolam 0.25 MG TAB PO PRN (09:32)
[2024-11-14] MEDS ORDERED: lisinopriL 10 MG TAB PO SCH (10:00)
--- NOTE | 2024-11-14 10:15 | P.HPIM ---
History of Present Illness H&P Date: 11/14/24 History of present illness; patient 74-year-old lady with past medical history significant for hypertension, chronic pain who presented the ER for headache and dizziness for the last 1 week. Patient stated that she was all right 1 week back when she started noticing that she was getting dizzy, felt as if the whole room was spinning, there was no relation with position change in intensity of dizziness. Patient also complaining of headache, feels like a band around her head. Patient denied any weakness of any extremity. There was no complaint of slurred speech. Patient denied any feeling of passing out. Patient was complaining of blurred vision at times. Patient also complaining of chest pressure, nonradiating, no aggravating alleviating associated with this chest pressure. Because of this dizziness and headache, patient came to the ER Initial lab work done in the ER showed WB 6.2, hemoglobin 13.1, platelet count 201 sodium 140, potassium 3.9, BUN 11, creatinine 0.66, glucose 101, AST 38, ALT 33 troponin 0.021 UA negative for infection Influenza A not detected Influenza B not detected RSV not detected COVID-19 not detected EKG done in the ER showed heart rate of 63 , no ST segment elevation or depression seen, no T-wave inversions seen. Chest x-ray done in the ER no acute cardiopulmonary CT head done showed no acute intracranial process CTA head and neck done showed no significant stenosis, aneurysm or thrombus in the intracranial circulation Patient admitted to internal medicine service REVIEW OF SYSTEMS: CONSTITUTIONAL: No fever, no malaise, no fatigue. HEENT: No recent visual problems or hearing problems. Denied any sore throat. CARDIOVASCULAR: As mentioned above PULMONARY: No shortness of breath, no cough, no hemoptysis. GASTROINTESTINAL: No diarrhea, no nausea, no vomiting, no abdominal pain. NEUROLOGICAL: As mentioned above HEMATOLOGICAL: Denies any bleeding or petechiae. GENITOURINARY: Denies any burning micturition, frequency, or urgency. MUSCULOSKELETAL/RHEUMATOLOGICAL: Denies any joint pain, swelling, or any muscle pain. ENDOCRINE: Denies any polyuria or polydipsia. The rest of the 14-point review of systems is negative. PHYSICAL EXAMINATION: GENERAL: The patient is alert and oriented x3, not in any acute distress. Well developed, well nourished. HEENT: Pupils are round and equally reacting to light. EOMI. No scleral icterus. No conjunctival pallor. Normocephalic, atraumatic. No pharyngeal erythema. No thyromegaly. CARDIOVASCULAR: S1 and S2 present. No murmurs, rubs, or gallops. PULMONARY: Chest is clear to auscultation, no wheezing or crackles. ABDOMEN: Soft, nontender, nondistended, normoactive bowel sounds. No palpable organomegaly. MUSCULOSKELETAL: No joint swelling or deformity. EXTREMITIES: No cyanosis, clubbing, or pedal edema. NEUROLOGICAL: Gross neurological examination did not reveal any focal deficits. SKIN: No rashes. Assessment and plan Dizziness Headache Chest pain Hypertensive urgency Hypothyroidism Monitor vital signs Monitor CBC Monitor CMP Continue telemetry monitoring Trend troponin Ordered 2D echo Increase dose of lisinopril to 20 mg daily Resume Synthroid Check orthostatics Ordered MRI brain Consult neurology Labs and medication were reviewed.. Continue same treatment. Continue with symptomatic treatment. Resume home medication. Monitor labs and vitals. DVT and GI prophylaxis. Further recommendations as per clinical course of the patient Dictation was produced using [employer] dictation software. please excuse any grammatical, word or spelling errors. Past Medical History Past Medical History: Cancer, CVA/TIA, Hyperlipidemia, Hypertension, Osteoarthritis (OA), Seizure Disorder, Thyroid Disorder Additional Past Medical History / Comment(s): seizure 2 yrs ago X1 AFTER FALL, STATES CLOSED HEAD INJURY,RANJIT'S, STATES WAS TOLD HAD TIA FROM TESTING, BUT PATIENT UNAWARE WHEN, hx skin cancer face, dr discontinued cholesterol meds 1 week ago.had rt shoulder steroid shot, occ vertigo, covid 09/2020, History of Any Multi-Drug Resistant Organisms: MRSA Date of last positivie culture/infection: 2014 MDRO Source:: right knee Past Surgical History: Back Surgery, Cholecystectomy, Joint Replacement, Ortho pedic Surgery, Tonsillectomy Additional Past Surgical History / Comment(s): back surgery x2, abdominoplasty, josseline carpal tunnel, rt shoulder rotator cuff sx. left knee "arthroscopy/ clean out", JOSSELINE CATARACT,2 rt knee replacments/revision sx Past Anesthesia/Blood Transfusion Reactions: No Reported Reaction Past Psychological History: No Psychological Hx Reported Smoking Status: Former smoker Past Alcohol Use History: None Reported Past Drug Use History: None Reported - Past Family History Mother Family Medical History: CVA/TIA Medications and Allergies Home Medications Medication Instructions Recorded Confirmed Type Levothyroxine Sodium [Synthroid] 50 mcg PO DAILY 03/06/14 11/13/24 History HYDROcodone/APAP 10-325MG [[place] 1 tab PO Q6H PRN 11/09/21 11/13/24 History 10-325] Ibuprofen [Motrin] 800 mg PO TID PRN 11/09/21 11/13/24 History Pantoprazole [Protonix] 40 mg PO DAILY PRN 11/13/24 11/13/24 History lisinopriL [Zestril] 10 mg PO DAILY 11/13/24 11/13/24 History Allergies Allergy/AdvReac Type Severity Reaction Status Date / Time No Known Allergies Allergy Verified 11/13/24 20:24 Physical Exam Vitals: Vital Signs Temp Pulse Resp BP Pulse Ox 11/14/24 09:27 68 16 169/88 98 11/14/24 08:55 75 16 180/70 96 11/14/24 07:24 56 L 20 165/74 97 11/14/24 06:23 59 L 18 149/74 98 11/14/24 02:13 61 16 142/73 97 11/14/24 00:45 63 16 151/73 96 11/13/24 23:04 73 18 155/87 97 11/13/24 21:44 69 18 144/69 97 11/13/24 20:23 86 18 158/78 96 11/13/24 19:00 147/64 11/13/24 18:30 192/83 11/13/24 17:51 195/96 11/13/24 17:12 69 16 194/106 100 11/13/24 12:34 98.0 F 86 18 197/92 98 Results CBC & Chem 7: 11/13/24 13:26 11/13/24 13:26 Labs: Abnormal Lab Results - Last 24 Hours (Table) 11/13/24 11/13/24 Range/Units 13:26 13:26 Glucose 101 H (74-99) mg/dL AST 38 H (14-36) U/L Ur Leukocyte Esterase Trace H (Negative) Urine RBC 8 H (0-5) /hpf
[2024-11-14] MEDS: lisinopriL 20 MG TAB PO SCH (10:45)
--- NOTE | 2024-11-14 12:50 | P.CRDCN ---
History of Present Illness Consult date: 11/14/24 History of present illness: This is a 74-year-old female patient with a past medical history significant for hypertension was on lisinopril as an outpatient presented to the hospital complaining of dizziness and lightheadedness but no presyncope or syncope and no symptoms of chest pain or chest discomfort or shortness of breath. She was found to be in hypertension crisis. She stated that she has not been compliant with her medications including the current dose of lisinopril for a week when she was in [place]. She was admitted to the hospital and the dose of lisinopril has increased and the pressure remains elevated and now consistent with stage II hypertension. Further evaluation was performed including an EKG showing sinus mechanism with poor R wave progression but no ischemic ST or T wave abnormalities and for set of troponin came to be unremarkable. No more sets of troponin. No history of CAD or heart failure or cardiac arrhythmia. She underwent also a CT scan of the brain which did not show any acute abnormalities including any intracranial hemorrhage. She is experiencing now dizziness and lightheadedness which has somewhat improved and currently she has been experiencing also nausea and vomiting. 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 History of hypertension on lisinopril as an outpatient but she has not been compliant with the medication Plan Agree about keeping the patient on the current dose of lisinopril Add hydrochlorothiazide to the current medical regimen An echocardiogram was performed we will follow-up on that Obtain serial cardiac enzymes Follow-up with the patient Past Medical History Past Medical History: Cancer, CVA/TIA, Hyperlipidemia, Hypertension, Osteo arthritis (OA), Seizure Disorder, Thyroid Disorder Additional Past Medical History / Comment(s): seizure 2 yrs ago X1 AFTER FALL, STATES CLOSED HEAD INJURY,BREN'S, STATES WAS TOLD HAD TIA FROM TESTING, BUT PATIENT UNAWARE WHEN, hx skin cancer face, dr discontinued cholesterol meds 1 week ago.had rt shoulder steroid shot, occ vertigo, covid 09/2020, History of Any Multi-Drug Resistant Organisms: MRSA Date of last positivie culture/infection: 2014 MDRO Source:: right knee Past Surgical History: Back Surgery, Cholecystectomy, Joint Replacement, Orthopedic Surgery, Tonsillectomy Additional Past Surgical History / Comment(s): back surgery x2, abdominoplasty, josseline carpal tunnel, rt shoulder rotator cuff sx. left knee "arthroscopy/ clean out", JOSSELINE CATARACT,2 rt knee replacments/revision sx Past Anesthesia/Blood Transfusion Reactions: No Reported Reaction Past Psychological History: No Psychological Hx Reported Smoking Status: Former smoker Past Alcohol Use History: None Reported Past Drug Use History: None Reported - Past Family History Mother Family Medical History: CVA/TIA Medications and Allergies Home Medications Medication Instructions Recorded Confirmed Type Levothyroxine Sodium [Synthroid] 50 mcg PO DAILY 03/06/14 11/13/24 History HYDROcodone/APAP 10-325MG [[place] 1 tab PO Q6H PRN 11/09/21 11/13/24 History 10-325] Ibuprofen [Motrin] 800 mg PO TID PRN 11/09/21 11/13/24 History Pantoprazole [Protonix] 40 mg PO DAILY PRN 11/13/24 11/13/24 History lisinopriL [Zestril] 10 mg PO DAILY 11/13/24 11/13/24 History Allergies Allergy/AdvReac Type Severity Reaction Status Date / Time No Known Allergies Allergy Verified 11/13/24 20:24 Physical Exam Vitals: Vital Signs Pulse Resp BP Pulse Ox 11/14/24 11:00 68 16 153/76 98 11/14/24 10:00 76 16 143/75 98 11/14/24 09:27 68 16 169/88 98 11/14/24 08:55 75 16 180/70 96 11/14/24 07:24 56 L 20 165/74 97 11/14/24 06:23 59 L 18 149/74 98 11/14/24 02:13 61 16 142/73 97 11/14/24 00:45 63 16 151/73 96 11/13/24 23:04 73 18 155/87 97 11/13/24 21:44 69 18 144/69 97 11/13/24 20:23 86 18 158/78 96 11/13/24 19:00 147/64 11/13/24 18:30 192/83 11/13/24 17:51 195/96 11/13/24 17:12 69 16 194/106 100 Results 11/13/24 13:26 11/13/24 13:26 Cardiac Enzymes 11/13/24 11/13/24 Range/Units 13:26 13:26 AST 38 H (14-36) U/L Troponin I 0.021 (0.000-0.034) ng/mL Coagulation 11/13/24 Range/Units 13: PT 10.4 (10.0-12.5) sec APTT 24.1 (22.0-30.0) sec CBC 11/13/24 Range/Units 13:26 WBC 6.2 (3.8-10.6) k/uL RBC 4.65 (3.80-5.40) m/uL Hgb 13.1 (11.4-16.0) gm/dL Hct 41.4 (34.0-46.0) % Plt Count 201 (150-450) k/uL Comprehensive Metabolic Panel 11/13/24 Range/Units 13:26 Sodium 140 (137-145) mmol/L Potassium 3.9 (3.5-5.1) mmol/L Chloride 107 (98-107) mmol/L Carbon Dioxide 27 (22-30) mmol/L BUN 11 (7-17) mg/dL Creatinine 0.66 (0.52-1.04) mg/dL Glucose 101 H (74-99) mg/dL Calcium 9.4 (8.4-10.2) mg/dL AST 38 H (14-36) U/L ALT 33 (4-34) U/L Alkaline Phosphatase 98 (38-126) U/L Total Protein 7.5 (6.3-8.2) g/dL Albumin 4.6 (3.5-5.0) g/dL Current Medications Generic Name Dose Route Start Last Admin Trade Name Freq PRN Reason Stop Dose Admin Acetaminophen 650 mg 11/13/24 22:00 Acetaminophen Tab 325 Mg Tab PO Q6HR PRN Mild Pain or Fever > 100.5 Hydrocodone Bitart/Acetaminophen 1 each 11/13/24 20:01 11/14/24 06:26 Hydrocodone/Apap 10-325mg 1 Each Tab PO 1 each DAILY PRN Administration Pain Alprazolam 0.25 mg 11/13/24 19:59 11/14/24 09:32 Alprazolam 0.25 Mg Tab PO 0.25 mg Q6HR PRN Administration Anxiety Famotidine 20 mg 11/13/24 21:00 11/14/24 08:08 Famotidine 20 Mg Tab PO 20 mg BID KEVIN Administration Sodium Chloride 1,000 mls @ 75 mls/hr 11/13/24 20:00 11/14/24 08:49 Saline 0.9% IV 75 mls/hr .[id number] KEVIN Administration Levothyroxine Sodium 50 mcg 11/14/24 06:30 11/14/24 06:35 Levothyroxine 50 Mcg Tab PO 50 mcg 0630 KEVIN Administration Lisinopril 20 mg 11/14/24 09:53 11/14/24 10:45 Lisinopril 20 Mg Tab PO 20 mg DAILY KEVIN Administration Naloxone HCl 0.2 mg 11/13/24 19:59 Naloxone 0.4 Mg/Ml 1 Ml Vial IV Q2M PRN Opioid Reversal Ondansetron HCl 4 mg 11/13/24 19:59 Ondansetron 4 Mg/2 Ml Vial IVP Q8HR PRN Nausea And Vomiting Tramadol HCl 50 mg 11/13/24 19:59 11/14/24 07:58 Tramadol 50 Mg Tab PO 50 mg Q6H PRN Administration Moderate Pain (Scale 4 to 6) 11/13/24 13:26 11/13/24 13:26
[2024-11-14] MEDS: hydroCHLOROthiazide 25 MG TAB PO SCH (12:59)
[2024-11-14] MEDS: ONDANSETRON 4 MG/2 ML VIAL IVP PRN (18:56)
[2024-11-14] MEDS: hydrALAZINE HCL 20 MG/ML 1 ML VIAL IVP PRN (22:32)
[2024-11-14] MEDS: HYDROmorphone 0.5 MG/0.5 ML SYRINGE IVP STA (23:48)
--- NOTE | 2024-11-15 08:04 | P.PN ---
Subjective Progress Note Date: 11/15/24 patient 74-year-old lady with past medical history significant for hypertension, chronic pain who presented the ER for headache and dizziness for the last 1 week. Patient stated that she was all right 1 week back when she started noticing that she was getting dizzy, felt as if the whole room was spinning, there was no relation with position change in intensity of dizziness. Patient also complaining of headache, feels like a band around her head. Patient denied any weakness of any extremity. There was no complaint of slurred speech. Patient denied any feeling of passing out. Patient was complaining of blurred vision at times. Patient also complaining of chest pressure, nonradiating, no aggravating alleviating associated with this chest pressure. Because of this dizziness and headache, patient came to the ER Initial lab work done in the ER showed WB 6.2, hemoglobin 13.1, platelet count 2 01 sodium 140, potassium 3.9, BUN 11, creatinine 0.66, glucose 101, AST 38, ALT 33 troponin 0.021 UA negative for infection Influenza A not detected Influenza B not detected RSV not detected COVID-19 not detected EKG done in the ER showed heart rate of 63 , no ST segment elevation or depression seen, no T-wave inversions seen. Chest x-ray done in the ER no acute cardiopulmonary CT head done showed no acute intracranial process CTA head and neck done showed no significant stenosis, aneurysm or thrombus in the intracranial circulation Patient admitted to internal medicine service 11/15. Patient seen and examined. Still complaining of headache but dizziness has improved. Blood pressure is elevated. Will start patient on hydralazine 25 mg 3 times daily REVIEW OF SYSTEMS: CONSTITUTIONAL: No fever, no malaise,. CARDIOVASCULAR: No chest pain, no palpitations, no syncope. PULMONARY: No shortness of breath, no cough, GASTROINTESTINAL: No diarrhea, no nausea, no vomiting, no abdominal pain. NEUROLOGICAL: No headaches, no weakness, PHYSICAL EXAMINATION: GENERAL: The patient is alert and oriented x3, not in any acute distress. Well developed, well nourished. HEENT: Pupils are round and equally reacting to light. EOMI. No scleral icterus. No conjunctival pallor. Normocephalic, atraumatic. No pharyngeal erythema. No thyromegaly. CARDIOVASCULAR: S1 and S2 present. No murmurs, rubs, or gallops. PULMONARY: Chest is clear to auscultation, no wheezing or crackles. ABDOMEN: Soft, nontender, nondistended, normoactive bowel sounds. No palpable organomegaly. MUSCULOSKELETAL: No joint swelling or deformity. EXTREMITIES: No cyanosis, clubbing, or pedal edema. NEUROLOGICAL: Gross neurological examination did not reveal any focal deficits. SKIN: No rashes. Assessment and plan Dizziness Headache Chest pain Hypertensive urgency Hypothyroidism Monitor vital signs Monitor CBC Monitor CMP Continue telemetry monitoring Trend troponin Ordered 2D echo Continue lisinopril 20 mg daily Start hydralazine 25 mg 3 times daily Continue Synthroid Check orthostatics Ordered MRI brain Consult neurology Cardiology following Labs and medication were reviewed.. Continue same treatment. Continue with symptomatic treatment. Resume home medication. Monitor labs and vitals. DVT a nd GI prophylaxis. Further recommendations as per clinical course of the patient Dictation was produced using [employer] dictation software. please excuse any grammatical, word or spelling errors. Objective - Vital Signs Vital signs: Vital Signs Temp 97.6 F 11/15/24 00:35 Pulse 75 11/15/24 00:35 Resp 16 11/15/24 00:35 BP 165/74 11/15/24 00:35 Pulse Ox 94 L 11/15/24 00:35 FiO2 Intake & Output 11/14/24 11/15/24 11/15/24 18:59 06:59 18:59 Weight 84.368 kg Other: Voiding Method Toilet # Voids 2 - Labs CBC & Chem 7: 11/13/24 13:26 11/13/24 13:26
[2024-11-15] MEDS: hydrALAZINE HCL 25 MG TAB PO SCH (08:39)
[2024-11-15] MEDS: BUTALB/APAP/CAFF 50-325-40MG TAB PO PRN (08:40)
[2024-11-15 10:22] LABS: Chol/HDL Ratio 2.95 Ratio; LDL Cholesterol,Calculated 101.1 mg/dL (0.0-131.0)
--- NOTE | 2024-11-15 11:51 | P.PN ---
Subjective Progress Note Date: 11/15/24 This is a 74-year-old female patient with a past medical history significant for hypertension was on lisinopril as an outpatient presented to the hospital complaining of dizziness and lightheadedness but no presyncope or syncope and no symptoms of chest pain or chest discomfort or shortness of breath. She was found to be in hypertension crisis. She stated that she has not been compliant with her medications including the current dose of lisinopril for a week when she was in [place]. She was admitted to the hospital and the dose of lisinopril has increased and the pressure remains elevated and now consistent with stage II hypertension. Further evaluation was performed including an EKG showing sinus mechanism with poor R wave progression but no ischemic ST or T wave abnormalities and for set of troponin came to be unremarkable. No more sets of troponin. No history of CAD or heart failure or cardiac arrhythmia. She underwent also a CT scan of the brain which did not show any acute abnormalities including any intracranial hemorrhage. She is experiencing now dizziness and lightheadedness which has somewhat improved and currently she has been experiencing also nausea and vomiting. The physical examination is remarkable for regular rhythm with a clear breathing sounds bilaterally and no edema was noted in the lower extremities November 15, 2024 The patient was seen and evaluated this morning. The pressure is better but still consistent with stage II hypertension. Hydralazine was added to the current medical regimen. Also she is on lisinopril and hydrochlorothiazide. The echocardiogram still pending. She is asymptomatic from a cardiovascular standpoint of view but she has headache which has somewhat improved. 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 History of hypertension on lisinopril as an outpatient but she has not been co mpliant with the medication Plan Continue the current medical regimen Follow-up on the echocardiogram If the echo is unremarkable the patient can be managed for hypertension as an outpatient Objective - Vital Signs Vital signs: Vital Signs Temp 98.0 F 11/15/24 07:30 Pulse 71 11/15/24 07:30 Resp 16 11/15/24 07:30 BP 150/78 11/15/24 07:30 Pulse Ox 98 11/15/24 07:30 FiO2 Intake & Output 0311/15/24 11/15/24 18:59 06:59 18:59 Weight 84.368 kg Other: Voiding Method Toilet Toilet # Voids 2 - Labs CBC & Chem 7: 11/13/24 13:26 11/13/24 13:26 Labs: Abnormal Lab Results - Last 24 Hours (Table) 11/14/24 Range/Units 13:26 Triglycerides 205.00 H (0.00-149.00) mg/dL Cholesterol 215.00 H (0.00-200.00) mg/dL VLDL Cholesterol, Calc 41.00 H (5.00-40.00) mg/dL HDL Cholesterol 72.90 H (40.00-60.00) mg/dL
--- NOTE | 2024-11-15 16:11 | P.CNNES ---
History of Present Illness Consult date: 11/15/24 Requesting physician: Antwan Castrejon Reason for Consult: Dizziness History of Present Illness: This is a telemedicine neurology consultation performed today on 11/15/2024, in collaboration with Kimberlyn Carrera. Patient is a 74-year-old right-handed female came to the hospital 2 days ago, 11/13/2024, at 12:23 PM for high blood pressure and dizziness. Patient does have history of hypertension for 5-6 years. However it has been very high for the last 1 week. She has been feeling dizziness with high blood pressure. She feels off balance, discombobulated, like "somewhere else". She has some spinning as well. Patient denies any slurred speech, facial droop or any visual disturbance. She has been having really bad in the whole past week. She normally does not get headache. In the past 2 months she has been having bad headaches. Vital signs on arrival blood pressure 197/92, pulse rate 86 every 98.0. Blood tests shows normal CBC, PT/PTT, normal CMP, troponin. UA negative, influenza, RSV and coronal virus PCR negative. EKG showed sinus rhythm. Chest x-ray showed no acute cardioverter process. Patient denies diabetes, she does have hypertension and hyperlipidemia. Denies any tobacco use. Drinks alcohol occasionally. She does have neuropathy in the legs for the last 1 year, which started in the feet and now involves knees down and it gets numb when she lays down to sleep. Home medications: Levothyroxine, [place], lisinopril 10 mg and Protonix. Patient is supposed on aspirin 81 mg daily, but she takes it regularly, no more than 3 times a week. Patient does not use any assistive device. She lives by herself with 3 dogs. Patient admits to having upper respiratory infection before she left to [place]. She was fine when she arrived there, but 1 week before she got here, she had again upper respiratory infection. She is just getting over again. Patient states she has history of "rods in her back", knee and shoulder surgeries. Review of Systems All pertinent positive and negative review of systems mentioned in the HPI. Otherwise unremarkable. Past Medical History Past Medical History: Cancer, CVA/TIA, Hyperlipidemia, Hypertension, Osteoarthritis (OA), Seizure Disorder, Thyroid Disorder Additional Past Medical History / Comment(s): seizure 2 yrs ago X1 AFTER FALL, STATES CLOSED HEAD INJURY,RANJIT'S, STATES WAS TOLD HAD TIA FROM TESTING, BUT PATIENT UNAWARE WHEN, hx skin cancer face, dr discontinued cholesterol meds 1 week ago.had rt shoulder steroid shot, occ vertigo, covid 09/2020, History of Any Multi-Drug Resistant Organisms: MRSA Date of last positivie culture/infection: 2014 MDRO Source:: right knee Past Surgical History: Back Surgery, Cholecystectomy, Joint Replacement, Orthopedic Surgery, Tonsillectomy Additional Past Surgical History / Comment(s): back surgery x2, abdominoplasty, josseline carpal tunnel, rt shoulder rotator cuff sx. left knee "arthroscopy/ clean out", JOSSELINE CATARACT,2 rt knee replacments/revision sx Past Anesthesia/Blood Transfusion Reactions: No Reported Reaction Past Psychological History: No Psychological Hx Reported Smoking Status: Former smoker Past Alcohol Use History: None Reported Additional Past Alcohol Use History / Comment(s): started smoking at age 16 and quit age 26 a pack would last 3 days. no alcohol now. Past Drug Use History: None Reported - Past Family History Mother Family Medical History: CVA/TIA Medications and Allergies Home Medications Medication Instructions Recorded Confirmed Type Levothyroxine Sodium [Synthroid] 50 mcg PO DAILY 03/06/14 11/13/24 History HYDROcodone/APAP 10-325MG [[place] 1 tab PO Q6H PRN 11/09/21 11/13/24 History 10-325] Ibuprofen [Motrin] 800 mg PO TID PRN 11/09/21 11/13/24 History Pantoprazole [Protonix] 40 mg PO DAILY PRN 11/13/24 11/13/24 History lisinopriL [Zestril] 10 mg PO DAILY 11/13/24 11/13/24 History Allergies Allergy/AdvReac Type Severity Reaction Status Date / Time No Known Allergies Allergy Verified 11/13/24 20:24 Physical Examination - Vital Signs Vital Signs: Vital Signs Temp Pulse Pulse Resp BP BP Pulse Ox 11/15/24 07:30 98.0 F 71 16 150/78 98 11/15/24 00:35 97.6 F 75 16 165/74 94 L 11/14/24 23:40 97.8 F 74 167/77 93 L 11/14/24 22:32 74 11/14/24 22:29 78 184/77 11/14/24 20:00 97.8 F 65 18 188/83 95 11/14/24 16:54 164/80 11/14/24 14:35 97.4 F L 58 L 16 190/84 93 L 11/14/24 14:04 68 16 170/78 98 Intake and Output 11/14/24 11/15/24 11/15/24 22:59 06:59 14:59 Other: Voiding Method Toilet Toilet # Voids 2 2 Weight 84.368 kg Patient is an elderly female, very pleasant, in no acute distress. Patient is alert awake oriented to time place and person. Speech and language functions are normal. Patient can name and repeat very well. No aphasia or dysarthria. Attention, concentration and fund of knowledge is adequate. On cranial nerve examination, pupils are equal, round and reacting to light, visual underwood are full on confrontation, with no neglect on double simultaneous stimulation. Extraocular muscles are intact with no nystagmus. Face is symmetric, tongue protrudes to the midline. Palatal elevation and sensation normal, hearing and shoulder shrug normal, facial sensation normal. On muscle strength testing, there is no pronator drift and the strength is n ormal in arms and legs distally and proximally, except right hip flexion which is 4. Deep tendon reflexes are symmetric 2 at the biceps, 0 at the night knee, 2 on the left. Plantars downgoing. Sensory to touch is equal with no neglect on double simultaneous stimulation. Cerebellar function showed no ataxia for [id number] testing. No dysdiadochokinesia. No ataxia for uuzb-sh-losm testing on either side. Tone and bulk of muscles normal. Finger tapping is good. Gait deferred.. On general examination, there is no carotid bruit or murmur, S1-S2 audible. Chest is clear on consultation. Abdomen is soft nontender. No organomegaly, bowel sounds present. Peripheral pulses are present. No peripheral edema. Results - Laboratory Findings CBC and BMP: 11/13/24 13:26 11/13/24 13:26 Abnormal Lab Findings: Abnormal Labs 11/13/24 11/13/24 11/14/24 13:26 13:26 13:26 Glucose 101 H AST 38 H Triglycerides 205.00 H Cholesterol 215.00 H VLDL Cholesterol, Calc 41.00 H HDL Cholesterol 72.90 H Ur Leukocyte Esterase Trace H Urine RBC 8 H Assessment and Plan Assessment: * 74-year-old female presenting with 1 week history of dizziness, off balance, some spinning, headache nausea and vomiting. Likely from uncontrolled blood pressure. Rule out other causes. * Hypertension, uncontrolled * Hyperlipidemia * History of multiple right knee and back surgeries. Plan: * Patient undergoing stroke/TIA workup * MRI brain * 2-D echo * CTA of head and neck showed no evidence of dissection of the cervical internal carotid arteries or vertebral arteries. No evidence of significant stenosis of the carotid bifurcations. No evidence of intracranial high-grade stenosis or intracranial aneurysm. No acute intracranial process. * Lipid panel with cholesterol 215, LDL 101, HDL 72, and tightness is 205. Start Lipitor 20 mg daily. * Continue aspirin 81 mg daily. Patient was noncompliant with aspirin, she should be maintained on aspirin 81 mg daily. * Optimize control of blood pressure. * Hemoglobin A1c * B12, folate * Continue Fioricet as needed * Neurology will follow. Thank you for the consult.
[2024-11-16 07:30] VITALS: TEMP 98
--- NOTE | 2024-11-16 12:54 | MR ---
EXAMINATION TYPE: MR brain wo con DATE OF EXAM: 11/16/2024 COMPARISON: CT brain May 06, 2015. CTA head and neck November 13, 2024 HISTORY: Headaches TECHNIQUE: Multiplanar, multisequence imaging of the brain and brainstem is performed without IV cont rast. FINDINGS: Diffusion weighted images demonstrate no evidence of a recent infarct or other diffusion abnormality. There is no extraaxial fluid collection. The ventricular system and cisternal spaces are normal in s ize and appearance. The brain volume is age appropriate. There are few tiny scattered T2 hyperintens e foci. Approximate 5 distinct lesions are seen. Lesions are nonspecific in appearance and distributi on. Midline structures demonstrate normal morphology. The craniocervical junction appears within normal limits. Normal vascular flow voids are present. The visualized sinuses are clear. Bilateral aphakia i s redemonstrated. No suspicious opacification of the mastoid air cells bilaterally. IMPRESSION: Minimal nonspecific white matter changes otherwise unremarkable study. [facility], , 11/16/2024 12:52 PM
[2024-11-16 14:42] VITALS: RESP 17
[2024-11-16 18:18] VITALS: BP 138/62; PULSE 80
--- NOTE | 2024-11-16 18:28 | CA ---
Transthoracic Echo Report Name: Ariela Bustos Age: 74 Gender: F : 1950 Exam Date: 11/16/2024 07:35 Exam Location: [facility] Ht (in): 67 Wt (lb): 186 Ordering Physician: Antwan Castrejon MD Attending/Referring Phys: Director Of Anesthesia Services Calli Michael RDCS Procedure CPT: Indications: dizziness, chest pain Cardiac Hx: CVA/TIA, CANCER, HTN Technical Quality: Good Contrast 1: Total Dose (mL): Contrast 2: Total Dose (mL): MEASUREMENTS (Male / Female) Normal Values 2D ECHO LV Diastolic Diameter PLAX 4.0 cm 4.2 - 5.9 / 3.9 - 5.3 cm LV Systolic Diameter PLAX 2.7 cm IVS Diastolic Thickness 1.0 cm 0.6 - 1.0 / 0.6 - 0.9 cm LVPW Diastolic Thickness 1.0 cm 0.6 - 1.0 / 0.6 - 0.9 cm LV Relative Wall Thickness 0.5 RV Internal Dim ED PLAX 2.7 cm LVOT Diameter 1.9 cm LA Systolic Diameter LX 3.3 cm 3.0 - 4.0 / 2.7 - 3.8 cm LV Diastolic Volume MOD 4C 69.5 cm??? LV Systolic Volume MOD 4C 25.8 cm??? LV Ejection Fraction MOD 4C 62.8 % LV Diastolic Length 4C 7.2 cm LV Systolic Length 4C 5.8 cm LA Volume 46.6 cm??? 18 - 58 / 22 - 52 cm??? LA Volume Index 23.1 cm???/m??? 16 - 28 cm???/m??? DOPPLER AV Peak Velocity 129.1 cm/s AV Peak Gradient 6.7 mmHg AV Mean Velocity 90.2 cm/s AV Mean Gradient 3.5 mmHg AV Velocity Time Integral 21.3 cm MV Peak Velocity 101.0 cm/s MV Peak Gradient 4.1 mmHg MV Mean Velocity 55.5 cm/s MV Mean Gradient 1.4 mmHg MV Velocity Time Integral 30.6 cm MV Area PHT 2.2 cm??? Mitral E Point Velocity 60.1 cm/s Mitral A Point Velocity 77.6 cm/s Mitral E to A Ratio 0.8 MV Deceleration Time 351.9 ms TR Peak Velocity 203.5 cm/s TR Peak Gradient 16.6 mmHg Right Atrial Pressure 5.0 mmHg Pulmonary Artery Systolic Pressu 21.6 mmHg Right Ventricular Systolic Press 21.6 mmHg FINDINGS Left Ventricle Left ventricular ejection fraction is estimated at 60%. Mild concentric left ventricular hypertrophy. Normal Left ventricular size, wall thickness, systolic function with no obvious regional wall motion abnormalities. Mildly increased septal wall thickness. Mildly increased posterior wall thickness. Right Ventricle Normal right ventricular size.right ventricular systolic pressure within normal limits. Right Atrium Normal right atrial size. Aneurysmal interatrial septum. Left Atrium Normal left atrial size. Mitral Valve Mitral valve thickened. No mitral stenosis, regurgitation or prolapse. Aortic Valve Trileaflet aortic valve. No aortic valve stenosis or regurgitation. Tricuspid Valve Structurally normal tricuspid valve. No tricuspid stenosis. Trace to mild tricuspid regurgitation. Pulmonic Valve Structurally normal pulmonic valve. No pulmonic stenosis. Trace pulmonic regurgitation. Pericardium No pericardial or pleural effusion. Aorta Normal size aortic root and proximal ascending aorta. CONCLUSIONS Indication: Hypertensive urgency LVH with preserved systolic function Thickened pericardium Previewed by: Dr. Evens Herrera MD (Electronically Signed) Final Date: 16 November 2024 18:26
[2024-11-16] MEDS ORDERED: ATORVASTATIN 20 MG TAB PO SCH (21:00)
--- NOTE | 2024-11-17 08:12 | P.PN ---
Subjective Progress Note Date: 11/16/24 Patient was seen for follow-up. Patient is sitting comfortably in her bed. Offers no complaints. Wants to go home. Objective - Vital Signs Vital signs: Vital Signs Temp 98.0 F 11/16/24 07:00 Pulse 80 11/16/24 16:00 Resp 17 11/16/24 14:41 BP 138/62 11/16/24 16:00 Pulse Ox 95 11/16/24 14:41 FiO2 Intake & Output 11/15/24 11/16/24 11/16/24 18:59 06:59 18:59 Intake Total 118 118 Balance 118 118 Intake: Oral 118 118 Other: Voiding Method Toilet # Voids 3 4 4 # Bowel Movements 0 - Exam Normal, nonfocal. - Labs CBC & Chem 7: 11/13/24 13:26 11/13/24 13:26 Assessment and Plan Assessment: * 74-year-old female presenting with 1 week history of dizziness, off balance, some spinning, headache nausea and vomiting. Likely from uncontrolled blood pressure. CVA ruled out. * Hypertension, uncontrolled * Hyperlipidemia * History of multiple right knee and back surgeries. Plan: * Patient underwent stroke/TIA workup * MRI brain revealed minimal nonspecific white matter changes, otherwise unremarkable study. I personally reviewed MRI, agree with the findings. * 2-D echo normal LVEF 60%. Mild concentric LVH. No obvious regional wall motion abnormalities. Normal right atrial size. Aneurysmal interatrial septum. Normal left atrial size. Thickened pericardium. No embolic source. * CTA of head and neck showed no evidence of dissection of the cervical internal carotid arteries or vertebral arteries. No evidence of significant stenosis of the carotid bifurcations. No evidence of intracranial high-grade stenosis or intracranial aneurysm. No acute intracranial process. * Lipid panel with cholesterol 215, LDL 101, HDL 72, and tightness is 205. Start Lipitor 20 mg daily. * Continue aspirin 81 mg daily. Patient was noncompliant with aspirin, she should be maintained on aspirin 81 mg daily. * Optimize control of blood pressure. * Hemoglobin A1c 5.3 * B12 515, folate 12.40 * Neurologically clear for discharge.
--- NOTE | 2024-11-19 09:52 | P.DS ---
Providers Date of admission: 11/13/24 20:01 Expected date of discharge: 11/16/24 Attending physician: Stephon Rod Consults: 11/13/24 19:59 Consult Physician Routine Consulting Provider: [facility] Consult Reason/Comments: Exert. dyspnea, HTN Do you want consulting provider notified?: Yes, Notify in am 11/14/24 09:51 Consult Physician Routine Consulting Provider: Stefano Ptety Consult Reason/Comments: Dizziness Do you want consulting provider notified?: Yes Primary care physician: Allan Coffey Hospital Course: Final diagnosis Dizziness, likely secondary to uncontrolled hypertension, CVA ruled out Headache secondary to above, improved Chest pain, ruled out ACS Hypertensive urgency Hypothyroidism GI prophylaxis DVT prophylaxis Full code Discharge disposition Patient is being discharged in a stable condition with guarded prognosis to home. Patient will follow-up with Dr. Coffey in the outpatient setting upon discharge. Patient is to continue with current medications including statin therapy and aspirin and close outpatient follow-up with neurology and cardiology as scheduled. Total time taken is greater than 35 minutes. Hospital course This is a 74-year-old female who was recently admitted with dizziness and headache and TIA versus CVA workup ongoing and ruled out per neurology. Likely secondary to uncontrolled hypertension. Patient evaluated by cardiology making adjustments to medications and has been cleared for discharge. Patient reports to feeling improved and would like to go home. Patient has been instructed to follow-up with primary care provider as well as neurology and cardiology outpatient. Please refer to consultation notes for further HPI. Currently no reports of chest pain, shortness of breath, or palpitations. Patient is afebrile. No reports of nausea or vomiting and patient is tolerating diet. Patient will be discharged home today. Guarded prognosis given significant comorbidities Physical exam: Gen: This is a 74-year-old female who is awake, alert and oriented x 3, well- developed, well-nourished, elderly appearing HEENT: Head is atraumatic, normocephalic. Pupils equal, round. Sclerae is an icteric. NECK: Supple. No JVD. No lymphadenopathy. No thyromegaly. LUNGS: Diminished breath sounds bilaterally otherwise clear to auscultation. No wheezes or rhonchi. No intercostal retractions. HEART: S1, S2 are muffled ABDOMEN: Soft. Bowel sounds are present. No masses. No tenderness. EXTREMITIES: No pedal edema. No calf tenderness. NEUROLOGICAL: Patient is awake, alert and oriented x3. Cranial nerves 2 through 12 are grossly intact. Please refer to medication reconciliation sheet for a list of medications. The impression and plan of care has been dictated by Adriana Khan, Nurse Practitioner as directed. Dr. Marcel MD I have performed a history and examination and MDM of this patient, discussed the same with the dictator, and agree with the dictator's assessment and plan as written ,documented as a scribe. Based on total visit time, I have performed more than 50% of the visit. Patient Condition at Discharge: Stable Plan - Discharge Summary Discharge Rx Participant: No New Discharge Prescriptions: New Acetaminophen Tab [Tylenol] 650 mg PO Q6HR PRN tab PRN Reason: Mild Pain Or Fever > 100.5 hydrALAZINE HCL [Apresoline] 25 mg PO TID #90 tab hydroCHLOROthiazide [Hydrodiuril] 25 mg PO DAILY #30 tab lisinopriL [Zestril] 20 mg PO DAILY #30 tab Meclizine [Antivert] 12.5 mg PO Q8HR PRN #60 tablet PRN Reason: Vertigo Atorvastatin [Lipitor] 10 mg PO DAILY #30 tab Continue Levothyroxine Sodium [Synthroid] 50 mcg PO DAILY Pantoprazole [Protonix] 40 mg PO DAILY PRN PRN Reason: GERD HYDROcodone/APAP 10-325MG [[place] 10-325] 1 tab PO Q6H PRN PRN Reason: Pain Ibuprofen [Motrin] 800 mg PO TID PRN PRN Reason: Pain Discontinued lisinopriL [Zestril] 10 mg PO DAILY Discharge Medication List Levothyroxine Sodium [Synthroid] 50 mcg PO DAILY 03/06/14 [History] HYDROcodone/APAP 10-325MG [[place] 10-325] 1 tab PO Q6H PRN 11/09/21 [History] Ibuprofen [Motrin] 800 mg PO TID PRN 11/09/21 [History] Pantoprazole [Protonix] 40 mg PO DAILY PRN 11/13/24 [History] Acetaminophen Tab [Tylenol] 650 mg PO Q6HR PRN tab 11/16/24 [Rx] Atorvastatin [Lipitor] 10 mg PO DAILY #30 tab 11/16/24 [Rx] Meclizine [Antivert] 12.5 mg PO Q8HR PRN #60 tablet 11/16/24 [Rx] hydrALAZINE HCL [Apresoline] 25 mg PO TID #90 tab 11/16/24 [Rx] hydroCHLOROthiazide [Hydrodiuril] 25 mg PO DAILY #30 tab 11/16/24 [Rx] lisinopriL [Zestril] 20 mg PO DAILY #30 tab 11/16/24 [Rx] Follow up Appointment(s)/Referral(s): Dewayne Albert MD [STAFF PHYSICIAN] - 11/20/24 8:45 am (Appointment made with Dr Gonzalez ) Allan Coffey DO [Primary Care Provider] - 1-2 days Kashif Chauhan MD [Medical Doctor] - 1 Week Patient Instructions/Handouts: Hypertensive Crisis (DC) Activity/Diet/Wound Care/Special Instructions: Activity limited until follow-up Follow-up with primary care provider Continue taking medications as prescribed Follow-up cardiology outpatient Follow-up with neurology outpatient Follow a heart healthy low-cholesterol diet Discharge Disposition: HOME SELF-CARE
== END 2024-11-16 19:22 | disposition home or self-care (01) ==
LOC: EC 12:23 → 6NMEDSUR 20:01
PROVIDERS: ADMIT Hospitalist; ATTEND Hospitalist
DX: I16.0 Hypertensive urgency (principal); I10 Essential (primary) hypertension; E78.5 Hyperlipidemia, unspecified; E06.3 Autoimmune thyroiditis; G89.29 Other chronic pain; M19.90 Unspecified osteoarthritis, unspecified site; Z79.82 Long term (current) use of aspirin; Z79.890 Hormone replacement therapy; Z79.899 Other long term (current) drug therapy; Z85.828 Personal history of other malignant neoplasm of skin; Z87.891 Personal history of nicotine dependence; Z86.73 Personal history of transient ischemic attack (TIA), and cerebral infarction without residual deficits; Z91.148 Patient's other noncompliance with medication regimen for other reason
CPT/HCPCS: 96376 ×3; 96375 ×2; 96361 ×2; 96374; 99285; 36415; 93005; 93306; 85379; 80061; 80053; 82607; 82746; 83605; 83735; 84484 ×2; 85025; 85610; 85730; 81001; 83036; 87636; 71046; 70496; 70498; 70551; G0378 ×4; J2270 ×2; J0360 ×2; J2405 ×2; J1171; Q9967

== ENCOUNTER → 2025-03-04 | Outpatient (CLI) | payer MEDICARE ==
--- NOTE | 2025-03-04 14:32 | MM ---
Reason for Exam: Screening (asymptomatic). Last mammogram was performed 1 year(s) and 4 month(s) ago. Patient History: Menarche at age 15. First Full-Term at age 17. Postmenopausal. Other cancer. Mother had breast cancer, age 50. Risk Values: Johanny 5 year model risk: 3.0%. NCI Lifetime model risk: 6.8%. Prior Study Comparison: 09/18/2017 Bilateral Screening Mammogram, [facility]. 09/24/2018 Bilateral Screening Mammogram, [facility]. 10/15/2018 Left Diagnostic Mammogram, [facility]. 05/08/2019 Left Diagnostic Mammogram, [facility]. 08/04/2020 Bilateral Screening Mammogram, [facility]. 10/20/2021 Bilateral Screening Mammogram, [facility]. 11/13/2022 Bilateral MG 3D screening mammo w/cad, [facility]. 11/15/2023 Bilateral MG 3D screening mammo w/cad, [facility]. Tissue Density: There are scattered areas of fibroglandular density. Findings: Analyzed By CAD. There is no suspicious group of microcalcifications or new suspicious mass in either breast. Stable chronic nodularity left breast. Overall Assessment: Benign, BI-RAD 2 Management: Screening Mammogram of both breasts in 1 year. . Patient should continue monthly self-breast exams. A clinical breast exam by your physician is recommended on an annual basis. This exam should not preclude additional follow-up of suspicious palpable abnormalities. Note on Johanny scores and lifetime risk: 1. A Johanny score greater than 3% is considered moderate risk. If this is the case, consider specialist referral to assess eligibility for a risk reducing agent. 2. If overall lifetime risk for the development of breast cancer is 20% or higher, the patient may qualify for future screening with alternating mammogram and breast MRI. [facility], , 03/04/2025 2:30 PM. Electronically signed and approved by: Houston Matos M.D. Radiologis
== END | disposition home or self-care (01) ==
LOC: RADMAMWWP 13:59
PROVIDERS: ATTEND Family Medicine
DX: Z12.31 Encounter for screening mammogram for malignant neoplasm of breast (principal); R92.323 Mammographic fibroglandular density, bilateral breasts; Z78.0 Asymptomatic menopausal state; Z80.3 Family history of malignant neoplasm of breast
CPT/HCPCS: 77063; 77067